=== PATIENT | male | born 1985 | race Caucasian/White ===

== ENCOUNTER 2017-11-20 13:08 | Emergency (ER) | payer MEDICAID, SELFPAY ==
--- NOTE | 2017-11-20 13:15 | DI.RAD_ITS ---
SYMPTOM/DIAGNOSIS: HIT WITH CHAINSAW, ? FX LEFT FOOT: Three views. No acute fracture or dislocation is seen. There is a laceration seen in the soft tissues of the medial foot adjacent to the head of the first metatarsal. No radiopaque foreign bodies are seen in the soft tissues. IMPRESSION: No acute fracture or dislocation.
[2017-11-20 13:16] VITALS: BP 147/96; PULSE 114; RESP 22; TEMP 36.6; O2SAT 97
--- NOTE | 2017-11-20 13:16 | ED.GENADUL_ITS ---
Discharge Plan Disposition Patient Disposition: HOME Condition: Stable Discharge Details Chief Complaint: Laceration Clinical Impression: Foot laceration Primary Care Provider: Keesha Olsen ED Provider: Debbie Schaeffer Home Meds and New Rx's Prescriptions: Continue oxycodone [OxyContin] 10 mg Tablet,Oral Only,Ext.Rel.12 Hr 10 mg PO Q12H RF: 0 Discharge Instructions Instructions: Laceration (ED) Additional Instructions: Keep wound clean dry and covered. Apply antibiotic ointment to the wound twice daily for the next 2 days. If you notice any signs of infection such as fever, increased pain redness or swelling, return immediately to the emergency department. Return to the emergency department in 7 days for suture removal. Referrals: Kimani Cuevas MD [ [facility] STAFF PHYSICIAN] - Discharge Data Discharge Date/Time-TO BE ENTERED AT DEPARTURE: 11/20/17 17:12 Discharge Physician: Debibe Schaeffer Medical Decision Making 32yo M with left foot laceration after hit directly with chain saw at home prior to arrival. Tetanus up-to-date. He has an approximate 3 cm irregular shaped laceration on dorsal distal foot just proximal to first MTP joint. There is no active bleeding. There is no obvious deformity. Normal left ankle exam. No gross motor/sensory deficits but he does have limited extension noted at left first toe, possibly due to pain. Full exam of wound limited due to patient discomfort and is requesting local anesthesia prior to further evaluation. He takes oxycodone 10 mg twice daily chronically for back pain but did not take a dose this morning. He is requesting pain medication. We will give a dose of oxycodone 10 mg p.o., and obtain a left foot x-ray. 1630 --3 vicryl and 10 nylon sutures placed at bedside. Wound is irregular and required debridement of irregular edges. Wound was extensively explored and there was no obvious tendon injury. Small portion of wound on medial aspect remains open. Discussed with patient that due to irregularity of the wound, wound edges approximated as best as possible and he is satisfied with the wound closure. Discussed that due to the irregular wound edges and irregular closure , there may be portions of the wound that may not be viable and may not survive. Overall the wound appears to be approximated well. Bacitracin and nonadherent dressing placed on wound. I do not think oral antibiotics are indicated at this time. He is instructed on the importance of keeping wound clean dry and covered. He is instructed to apply topical antibiotic ointment to wound twice to 3 times daily. He is instructed to return immediately to the emergency department any worsening or new concerning symptoms such as fever, increased pain, redness or swelling. Patient given orthopedics follow-up information for reevaluation if he has persistent difficulty with extension of the first great toe. He was neurovascularly intact after suture placement except for limitation of extension of first great toe which appeared to be due to pain - I suspect it may be due to the acute trauma to the area as I did not see an obvious tendon injury on exam. Pt placed on care managment list to help arrange follow up with orthopedics if indicated. He is instructed to return to the emergency department in 7 days for suture removal. HPI General Mode of arrival: wheelchair . Date/Time Provider Initiated Documentation: 11/20/17 13:15 . Limitations to Documentation: no limitations . Information obtained by: patient . HPI Narrative: Patient is a 32-year-old male presents with left foot injury after a chainsaw fell and hit him in the left foot just prior to arrival. States he was wearing a shoe without socks when hit directly on the top of his foot with a chainsaw. Patient denies pain in any other location of his lower extremity. Patient takes oxycodone chronically for back pain but states he has not taken any yet today. States his tetanus is up-to-date within the past 5- years. History: Chronic back pain Surgical history: Eye surgery Social history: Former tobacco smoker, denies alcohol or drugs Medications oxycodone 10 mg p.o. twice daily Allergies: None PCP: Dr. Amara Olsen Related Data Home Medications Medication Instructions Recorded Confirmed oxycodone [OxyContin] 10 mg PO Q12H 11/20/17 11/20/17 Allergies Allergy/AdvReac Type Severity Reaction Status Date / Time diphenhydramine HCl Allergy Severe Anaphylaxsi Unverified 08/21/17 22:15 [From Benadryl] s ibuprofen [From Advil] Allergy Unknown Unverified 08/21/17 22:15 Sulfa (Sulfonamide Allergy Unknown Unverified 08/21/17 22:15 Antibiotics) red 40 Allergy Hives Uncoded 08/21/17 22:15 Review of Systems Review of Systems All systems reviewed & are unremarkable except as noted in HPI and below PFSH Social History Smoking/Tobacco Use Status: Current every day Exam Const General: cooperative and healthy appearing Orientation: alert, awake and oriented x3 HENMT Head: normal to inspection Ears: hearing grossly normal bilaterally and external ears normal General nose exam: external nose normal Face and sinus: normal facial exam Eyes General: appearance normal, both eyes and all related structures Eyelids: eyelids normal Neck Neck: normal visual inspection Lymphatic: no lymphadenopathy noted Resp Effort & Inspection: normal respiratory effort and able to speak in complete sentences Cardio Rate: regular rate Skin General skin exam: no rashes or lesions noted Neuro General: alert, awake and oriented x3 Cognition: normal cognition Speech: speech normal Motor: muscle tone normal throughout and other (Able to wiggle all toes on left foot. Able to flex all toes and extend left second through fifth toes. Limited extension of left first toe, possibly due to pain.) Sensory Exam: no sensory deficits noted Extrem Left lower extremity: knee (No tenderness to palpation.), ankle (No tenderness palpation of left lateral or medial malleolus.) and foot (3 cm irregular laceration noted to left dorsal distal foot overlying first metatarsal. No active bleeding. No obvious foreign body noted. No erythema, edema, ecchymosis , deformity or red streaking.) Psych Appearance: grossly normal Mental Status: mental status grossly normal Speech and Movement: speech and movement normal Affect: normal affect Thought Process: normal Procedures Laceration Laceration 1: Site: lower extremity Side (If applicable): left Size (cm): 3.5 Description: irregular Local Anesthetic: Lidocaine 1% Pre-repair: wound explored, irrigated extensively, deep structures intact and wound margins revised Skin layer closed with: nylon and vicryl Technique: simple, interrupted (3 Vicryl sutures placed subcutaneously, 10 nylon sutures placed) Technique: simple, interrupted
[2017-11-20] MEDS: oxyCODONE 10 MG TAB PO (13:28)
[2017-11-20] MEDS: Lidocaine/Epinephri/Tetracaine Topical Gel 3 ML (14:41)
[2017-11-20] MEDS: LORazepam 2 MG/ML VIAL (14:41)
--- NOTE | 2017-11-20 15:09 | DI.VRAD_ITS ---
EXAM: XR Left Foot Complete, 3 or more Views EXAM DATE/TIME: 11/20/2017 1:16 PM CLINICAL HISTORY: 32 years old, male; Injury or trauma; Injury history: S/P hit l foot with chainsaw; Initial encounter; Laceration; Left; Foreign body involvement not specified; Patient HX: S/P hit in l foot with chainsaw TECHNIQUE: XR Left foot 3 or more views. COMPARISON: CR LEFT FOOT COMPLETE 07/12/2015 11:21 AM FINDINGS: Bones/joints: Normal. No acute fracture. No dislocation. Soft tissues: Normal. IMPRESSION: No acute findings. Dictated and Authenticated by: Cindy Martin MD. Ordering:CALLI MOYA MD
== END 2017-11-20 17:12 | disposition home or self-care (01) ==
PROVIDERS: Emergency Provider Physician Assistant; PCP Physician Assistant Medical
DX: S91.312A Laceration without foreign body, left foot, initial encounter (principal); W29.3XXA Contact with powered garden and outdoor hand tools and machinery, initial encounter
CPT/HCPCS: 12002; 96374; 73630; J2060

== ENCOUNTER 2017-11-29 11:40 | PSDC | payer MEDICAID, SELFPAY ==
[2017-11-29] VITALS (7 sets, daily range): BP systolic 94–123; BP diastolic 63–81; PULSE 85–96; RESP 10–18; TEMP 35.6–36.5; O2SAT 94–97
[2017-11-29] MEDS: Lactated Ringers 1,000 ML 80 ML IV ×2 (12:07→15:10)
--- NOTE | 2017-11-29 13:57 | W.PM.DSUDISC ---
Discharge Plan Disposition Patient Disposition: HOME Condition: Good Discharge Details Reason For Visit: (L) EHL TENDON LACERATION Attending Provider: Rip Velasquez Primary Care Provider: Keesha Olsen Home Meds and New Rx's Prescriptions: New acetaminophen 500 mg capsule 1,000 mg PO Q8H PRN (Reason: pain) Qty: 90 RF: 0 oxycodone 5 mg tablet 5 mg PO Q6H PRN PRNQty: 10 RF: 0 Continue oxycodone [OxyContin] 10 mg Tablet,Oral Only,Ext.Rel.12 Hr 10 mg PO Q12H RF: 0 Discharge Instructions Additional Instructions: Activity: You should keep the foot elevated as much as possible for the first few days. You may place weight on the leg but use the crutches for support. Whenever you are mobilizing you should wear the post-op shoe. Dressing/Cast: Your dressing should be kept in place for at least 4 days. After this you may remove the dressing and cover with a light gauze wrap. You may get the wound wet at that time. Keep it clean. Medications: - You should take Tylenol for baseline pain control. - You have Oxycodone for breakthrough pain. - You may apply ice over the foot Follow-up: 10 days Equipment/Supplies: Partial Weight Bearing Crutches Activity:: Elevate Remove Dressings/Wound Care:: 72 hours Shower/Bathe:: 72 hours Activity:: Ambulate with post-op shoe Equipment/Supplies:: No Equipment Needed Diet:: Normal Diet Discharge Orders Discharge Orders: Discharge Order (Routine); Ordered 11/29/17 Ordered By: Rip Velasquez DS: Diagnosis Discharge Diagnosis (1) Laceration of left foot with tendon involvement: Status: Acute
[2017-11-29] MEDS: oxyCODONE 5 MG TAB PO (16:47)
--- NOTE | 2017-11-30 09:05 | ROE_ITS ---
Date of Surgery: November 29, 2017 Preoperative Diagnosis: Left foot wound with tendon and bone involvement Postoperative Diagnosis: Left foot wound with tendon and bone involvement Surgery: Left foot laceration, 7 cm, irrigation and debridement of bone, muscle, and soft tissues with EHL ten don repair. Surgeon: Rip Velasquez M.D. Emery Grinder: Abena Crawley PA-C Findings: There was a jagged laceration over the medial left foot. This did involve a small area of the first metatarsal. The neurovascular bundle was completely transected and ripped with no approximable ends. The EHL tendon was also transected. A proximal incision was used to find it and a tendon repair wa s performed. Anesthesia: General Estimated Blood Loss: 20 cc Complications: None Disposition: The patient was awakened from anesthesia and taken to the PACU in a stable condition. 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 He states that his trigger finger slipped and he a ctivated the chainsaw while it was next to his foot. He suffered a laceration to the left foot. He was seen in the Emergency Department. Irrigation was performed and the foot was closed loosely. I s aw him in clinic where he demonstrated decreased sensation over the medial aspect of the foot and the toe as well as no active extension. Given the laceration and the involvement of deeper structures, I did offer irrigation and debridement with tendon repair. I discussed the risks of the procedure to include bleeding, infection, pain, stiffness, persistent numbness and tingling, weakness, rerupture, need for repeat procedures. Procedure Description: Jesus Manuel was greeted in the preoperative holding area. His identity was confirmed. The correct site was identified and marked. The consent was reviewed with the patient and signed. History and physical was updated. He was taken back to the operating room and placed in a supine position. All bony prominences were w ell-padded. The previous dressing was removed from the left foot. Sutures were removed from the lef t foot prior to proceeding with the case. The left foot was prepped with Betadine and draped in a st andard fashion. Prophylactic antibiotics in the form of cefazolin 3 gm were given. A time-out was p erformed for safe surgery. The previous laceration was then opened up with blunt dissection. There was no active bleeding from this area. The borders of the skin had somewhat of a godwin appearance and these were excised sharply back to healthy-appearing skin. There was definitely damaged skin seen emanating from this laceratio n site, but it still appeared viable. The deeper structures were difficult to appreciate. It was qu ite mangled. Thorough irrigation was performed of the wound with 1 liter of normal saline. Blunt an d sharp dissection were used to help identify more normal anatomy. There was notable destruction on the medial aspect of the first metatarsal. Most of the soft tissue was excised it appears from the c hainsaw itself with no reapproximable tissues. A stump proximally of the vein, artery, and nerve wer e seen, but the nerve had discoloration to it and the distal ends were hard to appreciate. Dissectio n was carried distally in the medial aspect of the foot, but there was no reapproximable ends of luis ry or nerve to be seen. There was also a small gouge of the first metatarsal. There was no true fra cture, but a 1 cm x 1 cm, a millimeter or two thick, wafer removed from the medial aspect of the firs t metatarsal. This was thoroughly irrigated. Rongeur and scissors were used to debride the tissues in this area. We then turned our attention to the EHL tendon which was obviously absent. The EHB tendon did appear to be present medially. The EHL tendon distally was able to be found. This distal stump was quite tattered. The end was sharply excised to return to some more normal-appearing tissues. This was hel d in place with an 18-gauge needle. We tried to find the EHL tendon proximally through the initial w ound. However, we were unable to appreciate this tendon and therefore made a more proximal incision. The tendon was identified and then shuttled back through the foot into the wound base. The incisio n also had to be extended proximally a slight amount in order to fully repair the tendon. The tendon was again held in place with an 18 gauge needle so there could be minimal tension on the tendon itse lf. Using a 2-0 FiberWire I performed a tendon repair using a cruciate-type pattern. This very nice ly reapproximated the tendon. I then backed this up with a crossing suture with 5-0 nylon as well as a 5-0 epitendinous suture. The toe was tested and it was safe down to about 20 degrees of plantar f lexion, and that toe was held in a neutral position of about 20 degrees of dorsiflexion. The wound w as thoroughly irrigated. The medial soft tissues, which were thoroughly disrupted, were attempted to be reapproximated to cover the bone which was cut by the chainsaw. Two 2-0 Vicryl sutures were able to slightly reapproximate this medial tissue of the toe. The skin was then closed with 3-0 nylon. The wound bed and the area was injected with 0.25% bupivacaine. The wound was dressed with Xeroform, 4x4s, Webril, and he was placed into a posterior slab splint, extending out to the toes, holding the great toe in a slight amount of dorsiflexion. At the end of the case all counts were correct.
== END 2017-11-29 17:33 | disposition home or self-care (01) ==
PROVIDERS: PCP Physician Assistant Medical; Visit Provider Student in an Organized Health Care Education/Training Program
PROC: (CPT 11044; principal; 2017-11-29 15:00)
DX: S91.312A Laceration without foreign body, left foot, initial encounter (principal); S96.122A Laceration of muscle and tendon of long extensor muscle of toe at ankle and foot level, left foot, initial encounter; S94.92XA Injury of unspecified nerve at ankle and foot level, left leg, initial encounter; W31.89XA Contact with other specified machinery, initial encounter
CPT/HCPCS: 11044; 12042; 28208; J0131; J0690; J1100; J1885; J2250; J2405

== ENCOUNTER 2018-03-16 00:49 | Emergency (ER) | payer MEDICAID, SELFPAY ==
[2018-03-16 00:54] VITALS: BP 139/89; PULSE 96; RESP 18; TEMP 36.6; O2SAT 99
--- NOTE | 2018-03-16 01:15 | W.ED.GENAD ---
Discharge Plan Disposition Patient Disposition: HOME Condition: Good Discharge Details Chief Complaint: Orthopedic Clinical Impression: Injury of knee, right Primary Care Provider: Keesha Olsen ED Provider: Sky Zimmerman Home Meds and New Rx's Prescriptions: New oxycodone 5 mg capsule 5 mg PO Q6H PRN (Reason: pain) Qty: 10 RF: 0 Discharge Instructions Instructions: Crutch Instructions (ED), Knee Immobilizer (ED) Additional Instructions: X-rays are negative. Given your exam findings we need to rule out patella tendon rupture. You must wear the knee immobilizer at all times. You must be nonweightbearing and use crutches. You will need follow-up promptly with orthopedics. You should use ice to help with pain and swelling. Keep your leg elevated. You may use oxycodone if necessary for pain. You should use Tylenol as well. Return to emergency department for increasing pain/swelling in the leg, numbness, weakness. Stand Alone Forms: Work Release Referrals: Rip Velasquez MD [ [facility] STAFF PHYSICIAN] - Medical Decision Making Patient here complaining of right knee injury. He is unable to bear weight. I cannot actively or passively range his knee because of pain. He is unable to lift his heel off the bed at all. His patella clinically appears to be in place. His patella tendon appears to be intact but given the inability to lift his leg at all of the bed I have to assume either a quadricep tendon rupture or a patella tendon rupture. He complains of pain infra patella. He is neurovascularly intact distally. He has allergies to nonsteroidals. He drove himself here somehow. I have told him that he can have narcotic for pain relief if he gets a ride home which he states he will be able to do. He is sent for x-ray of the right knee. He will be placed in a knee immobilizer and made nonweightbearing status with prompt follow-up with orthopedics. Patient reports to me that he had been on oxycodone in the past. He has weaned himself off it over the last 3 months. He is unable to take nonsteroidals because of allergies. I did review him in the [place] prescription monitoring system. Indeed his last prescription filled for oxycodone was in November. I will give him a prescription for 10 oxycodone to use over the next couple days until he can get in to see orthopedics. State information sheet was given. Informed consent was signed. X-ray is negative. Patella appears to be in place and not fractured. He is placed in a knee immobilizer and remained neurovascularly intact. He is given crutches and is made nonweightbearing. He is put on orthopedic referral list for prompt follow-up. HPI General Mode of arrival: wheelchair. Date/Time Provider Initiated Documentation: 03/16/18 01:15. Limitations to Documentation: no limitations. Information obtained by: patient. HPI Narrative: Patient presents to ED with right knee pain. Patient reports that he was going down stairs at work when he felt a pop in his right knee. His leg twisted outward and he was unable to bear weight. He did not fall as he was hanging onto the railing. He denies any other injury. He managed to get himself here for evaluation. He was brought in by wheelchair. He needed to be helped into the stretcher. Related Data Home Medications Medication Instructions Recorded Confirmed oxycodone 5 mg PO Q6H PRN #10 cap 03/16/18 Previous Rx's Medication Instructions Recorded oxycodone 5 mg PO Q6H PRN #10 cap 03/16/18 Allergies Allergy/AdvReac Type Severity Reaction Status Date / Time diphenhydramine HCl Allergy Severe Anaphylaxsi Verified 03/16/18 00:58 [From Benadryl] s ibuprofen [From Advil] Allergy Unknown Verified 03/16/18 00:58 Sulfa (Sulfonamide Allergy Unknown Verified 03/16/18 00:58 Antibiotics) cefuroxime [From Ceftin] Allergy Unverified 03/16/18 00:58 red 40 Allergy Hives Uncoded 03/16/18 00:58 General Stated Complaint: Orthopedic KRIS: 3 Review of Systems Constitutional Denies weakness Cardiovascular Denies chest pain, Denies syncope and Denies dyspnea Respiratory Denies dyspnea Musculoskeletal Reports abnormal gait, Reports arthralgias, Reports limited range of motion, Denies numbness and Denies tingling Neurologic Reports abnormal gait, Denies syncope, Denies focal weakness, Denies numbness, Denies tingling and Denies weakness PFSH Surgical History Laceration of left foot with tendon involvement (Chronic) Social History Smoking/Tobacco Use Status: Former Tobacco Use Exam Const General: cooperative and uncomfortable Nutritional Appearance: obese Orientation: alert and oriented x3 Skin General skin exam: no rashes or lesions noted Neuro General: alert, oriented x3, no focal motor deficits and CN's II-XI intact bilaterally Sensory Exam: no sensory deficits noted Extrem General: normal exam except as noted Right lower extremity: knee Details: tenderness Location: of the infrapatellar area, abnormal ROM (unable to range at all due to pain) Details: unable to extend lower leg actively and other (patella appears in place, tendon/quad muscle feel intact) and foot Details: vascular exam Details: dorsalis pedis pulse present and posterior tibial pulse present Course Vital Signs Temperature 97.8 F 03/16/18 00:54 Pulse 96 H 03/16/18 00:54 Respiratory Rate 18 03/16/18 00:54 Blood Pressure 139/89 03/16/18 00:54 Pulse Oximetry 99 03/16/18 00:54 Temperature 97.8 F 03/16/18 00:54 Temperature Source Temporal Artery Scan 03/16/18 00:54 Pulse 96 H 03/16/18 00:54 Respiratory Rate 18 03/16/18 00:54 Respiratory Effort Non-Labored 03/16/18 00:54 Blood Pressure 139/89 03/16/18 00:54 Blood Pressure Position Sitting 03/16/18 00:54 Pulse Oximetry 99 03/16/18 00:54 Oxygen Delivery Method Room Air 03/16/18 00:54 Oxygen Flow Rate 0 03/16/18 00:54 Pain Level 10 03/16/18 00:58
--- NOTE | 2018-03-16 01:28 | DI.RAD_ITS ---
SYMPTOM/DIAGNOSIS: TRAUMA RIGHT KNEE: Comparison is made with 19 Jun 2014. The joint spaces are well maintained. No fracture or joint effusion is seen. IMPRESSION: Negative right knee
--- NOTE | 2018-03-16 02:17 | DI.VRAD_ITS ---
EXAM: XR Left Knee, 4 or more Views EXAM DATE/TIME: 03/16/2018 1:30 AM CLINICAL HISTORY: 33 years old, male; Injury or trauma; Injury history: [place] pop walking down the stairs; Initial encounter; Sprain or strain; Patella or knee; Right; Injury date: 03/15/2018 TECHNIQUE: XR Left knee 4 or more views. COMPARISON: No relevant prior studies available. FINDINGS: Bones/joints: Typical for age. No evidence of acute fracture. Soft tissues: Unremarkable. IMPRESSION: No acute findings. Dictated and Authenticated by: Alexandru Faulkner MD. Ordering:KAROL Swanson MD
== END 2018-03-16 02:38 | disposition home or self-care (01) ==
PROVIDERS: Emergency Provider Emergency Medicine; PCP Physician Assistant Medical
DX: M25.561 Pain in right knee (principal)
CPT/HCPCS: 29505; 96372; 99284; 73564; E0114; L1830

== ENCOUNTER 2018-03-31 20:33 | Outpatient (CLI) | payer MEDICAID, SELFPAY ==
--- NOTE | 2018-03-31 20:49 | NUR.NOTE ---
Nursing Note: Pt brought in previous knee immobilizer from visit 03/16/18, where he was seen by Dr. Zimmerman. Pt states immobilizer failed (straps came apart from side bars). Disposed of here in ED. Production Editor made aware, states to have account made for dispensing new durable medical equipment. Pt has f/u with orthopedics scheduled for 04/05/18. Pt arrives partial weight bearing on crutches.
== END 2018-03-31 20:53 ==
PROVIDERS: PCP Physician Assistant Medical; Visit Provider Emergency Medicine
DX: R69 Illness, unspecified (principal)
CPT/HCPCS: L1830

== ENCOUNTER 2019-02-14 14:31 | Emergency (ER) | payer MEDICAID, SELFPAY ==
[2019-02-14 14:34] VITALS: BP 159/89; PULSE 93; RESP 19; TEMP 35.9; O2SAT 95
--- NOTE | 2019-02-14 15:02 | W.ED.GENAD ---
Discharge Plan Disposition Patient Disposition: HOME Discharge Details Chief Complaint: Orthopedic Clinical Impression: Distal radius fracture, right Primary Care Provider: Keesha Olsen ED Provider: Nicholas Underwood Home Meds and New Rx's Prescriptions: No Action oxycodone 5 mg capsule 10 mg PO Q6H PRN (Reason: pain) RF: 0 Discharge Instructions Instructions: Wrist Fracture in Adults (ED) Additional Instructions: Please use wrist splint. No use of right hand until cleared by orthopedics. Call tomorrow to schedule follow-up with orthopedics. Please contact your primary care physician to arrange follow-up. Return to the ER for any worsening or new concerning symptoms. Stand Alone Forms: Work Release Referrals: Keesha Olsen [Primary Care Provider] - Rip Velasquez MD [ [facility] STAFF PHYSICIAN] - Discharge Data Discharge Date/Time-TO BE ENTERED AT DEPARTURE: 02/14/19 16:50 Medical Decision Making <CATE Graves - Last Filed: 02/17/19 23:27> Is a 33-year-old patient presenting for complaints of hand injury after punching a cement wall 2 days ago. Patient complaining of right hand, wrist and forearm pain since injury occurred. Patient does have a history of boxer's fracture and is concerned with similar. Patient has no open wounds. Patient is complaining of mild dorsal hand numbness however has sensation intact distally. On exam patient has notable forearm, wrist and hand pain with palpation. Specifically has no obvious deformities. Again sensation intact to sharp and dull distally but reporting decreased sensation over the proximal hand wrist. X-rays ordered. Patient offered Motrin and Tylenol at this time but declines Signed out pending x-ray results <Nicholas Underwood MD - Last Filed: 02/14/19 22:39> Care signed out by CATE Estrada with plan to follow-up on x-ray imaging. X-ray was interpreted by radiology: forearm Distal radial fracture with no definite extension to the articular surface. No displacement. No acute findings noted on the wrist or hand x-ray. [place] wrist splint placed. Patient continues to note paresthesias dorsal hand -suspect secondary to radial nerve irritation. Patient was instructed to follow-up with orthopedics. Usual and customary discharge instructions were provided. HPI <CATE Graves - Last Filed: 02/17/19 23:27> General Date/Time Provider Initiated Documentation: 02/14/19 14:44. HPI Narrative: This is a 33-year-old gentleman who reports 2 days ago he lost his temper and punched a cement wall. Patient complaining of pain in his right hand and wrist since that time. Patient also complaining of mild forearm pain. Patient complaining of a numbness of the dorsal aspect of his right hand. Patient denies open wounds. History of boxer's fracture in years past. Patient persistent discomfort with range of motion. No other sites of pain or concerns reported. Related Data Home Medications Medication Instructions Recorded Confirmed oxycodone 10 mg PO Q6H PRN 02/14/19 02/14/19 Allergies Allergy/AdvReac Type Severity Reaction Status Date / Time diphenhydramine HCl Allergy Severe Anaphylaxsi Verified 02/14/19 14:39 [From Benadryl] s ibuprofen [From Advil] Allergy Unknown Verified 02/14/19 14:39 Sulfa (Sulfonamide Allergy Unknown Verified 02/14/19 14:39 Antibiotics) cefuroxime [From Ceftin] Allergy Unverified 02/14/19 14:39 red 40 Allergy Hives Uncoded 02/14/19 14:39 General Stated Complaint: Orthopedic KRIS: 4 Review of Systems <CATE Graves - Last Filed: 02/17/19 23:27> All systems reviewed & are unremarkable except as noted in HPI and below Musculoskeletal Musculoskeletal: Reports numbness and Denies tingling Integumentary/Breasts Skin/Breast: Denies wounds Neurologic Neurologic: Reports numbness and Denies tingling PFS <CATE Graves - Last Filed: 02/17/19 23:27> Surgical History (Updated 03/16/18 @ 01:28 by Sky Zimmerman MD) Laceration of left foot with tendon involvement (Chronic) Status post extensor tendon repair left great toe DOS: 11/29/17 Social History Smoking/Tobacco Use Status: Former Tobacco Use Drug use: Never Substance use type: does not use Do you feel safe at home: Yes Do you feel safe in your relationship?: Yes Exam <CATE Graves - Last Filed: 02/17/19 23:27> Narrative Exam Narrative: CONST: Healthy appearing patient, in no acute distress. Alert and oriented. MUSCULOSKELETAL: No focal elbow pain with palpation. Moderate right forearm pain with palpation worse distally. Wrist pain with palpation both radial and ulnar aspects. Dorsal hand pain with palpation along the first metacarpal, second metacarpal. No open wounds. No obvious deformity. Pulses intact. Decreased sensation to sharp and dull overlying the dorsal hand at the wrist. No loss of sensation through all the digits distally. All digits are intact to sharp and dull. 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 SKIN: Normal. Dry. No rashes. NEURO: Alert and awake. Speech clear. PSYCH: Normal affect. Cooperative. Course <CATE Graves - Last Filed: 02/17/19 23:27> Vital Signs Vital signs: Vital Signs Temperature 35.9 C L 02/14/19 14:34 Pulse 93 H 02/14/19 14:34 Respiratory Rate 19 02/14/19 14:34 Blood Pressure 159/89 H 02/14/19 14:34 Pulse Oximetry 95 02/14/19 14:34 Temperature 35.9 C L 02/14/19 14:34 Temperature Source Skin 02/14/19 14:34 Pulse 93 H 02/14/19 14:34 Respiratory Rate 19 02/14/19 14:34 Respiratory Effort Non-Labored 02/14/19 14:36 Blood Pressure 159/89 H 02/14/19 14:34 Blood Pressure Position Sitting 02/14/19 14:34 Pulse Oximetry 95 02/14/19 14:34 Oxygen Delivery Method Room Air 02/14/19 14:34 Oxygen Flow Rate 0 02/14/19 14:34 Pain Level 6 02/14/19 14:36 Sign Out <CATE Graves - Last Filed: 02/17/19 23:27> Sign Out Data: Sign Out Comment: Signout pending x-ray results, appropriate splinting Last updated by Zabrina Amor PA at 02/14/19 16:10
--- NOTE | 2019-02-14 15:09 | DI.RAD_ITS ---
EXAM: XR FOREARM RT CLINICAL HISTORY: pain, injury TECHNIQUE: COMPARISON: XR HAND RT COMPLETE from 02/14/2019 XR WRIST RT COMPLETE from 02/14/2019 XR WRIST RT COMPLETE from 02/14/2019 FINDINGS: Two views of the forearm, three views of the wrist, and three views of the hand were obtained. Minim al cortical deformity of the distal radius noted, probably epiphyseal remnant. Nondisplaced fracture not excluded. No other bony abnormality seen. IMPRESSION:
--- NOTE | 2019-02-14 16:26 | DI.VRAD_ITS ---
PROCEDURE INFORMATION: Exam: XR Right Forearm Exam date and time: 02/14/2019 3:16 PM Age: 33 years old Clinical indication: Pain; Other: Punching injury TECHNIQUE: Imaging protocol: XR Right forearm. Views: 2 views. COMPARISON: No relevant prior studies available. FINDINGS: Bones/joints: Distal radial fracture. No definite extension to the articular surface. No displacement. Soft tissues: Normal. IMPRESSION: Distal radial fracture. No definite extension to the articular surface. No displacement. Dictated and Authenticated by: Minh Lopez MD. Ordering:DANK Gerber MD
--- NOTE | 2019-02-14 16:27 | DI.VRAD_ITS ---
PROCEDURE INFORMATION: Exam: XR Right Wrist Exam date and time: 02/14/2019 3:17 PM Age: 33 years old Clinical indication: Pain; Wrist; Right; Patient HX: Punching injury 2 days ago. TECHNIQUE: Imaging protocol: XR Right wrist. Views: 3 or more views. COMPARISON: No relevant prior studies available. FINDINGS: Bones/joints: Normal. Soft tissues: Normal. IMPRESSION: No acute findings. Dictated and Authenticated by: Minh Lopez MD. Ordering:DANK Gerber MD
--- NOTE | 2019-02-14 16:27 | DI.VRAD_ITS ---
PROCEDURE INFORMATION: Exam: XR Right Hand Exam date and time: 02/14/2019 3:21 PM Age: 33 years old Clinical indication: Pain; Hand; Right; Patient HX: Punching injury 2 days ago TECHNIQUE: Imaging protocol: XR Right hand. Views: 3 or more views. COMPARISON: No relevant prior studies available. FINDINGS: Bones/joints: Normal. Soft tissues: Soft tissue edema. IMPRESSION: Soft tissue edema. No fracture is noted Dictated and Authenticated by: Minh Lopez MD. Ordering:DANK Gerber MD
== END 2019-02-14 16:50 | disposition home or self-care (01) ==
PROVIDERS: Emergency Provider Student in an Organized Health Care Education/Training Program; PCP Physician Assistant Medical
DX: S52.501A Unspecified fracture of the lower end of right radius, initial encounter for closed fracture (principal); W22.09XA Striking against other stationary object, initial encounter
CPT/HCPCS: 29125; 99284; 73090; 73110; 73130; L3908

== ENCOUNTER 2019-02-21 21:35 | Emergency (ER) | payer MEDICAID, SELFPAY ==
[2019-02-21 21:49] VITALS: BP 136/86; PULSE 76; RESP 16; TEMP 36.7; O2SAT 96
--- NOTE | 2019-02-21 22:00 | W.ED.GENAD ---
Discharge Plan Disposition Patient Disposition: HOME Condition: Good Discharge Details Chief Complaint: Orthopedic Clinical Impression: Acute pain of right wrist Primary Care Provider: Keesha Olsen ED Provider: Allan Cortez Home Meds and New Rx's Prescriptions: New naproxen 500 mg tablet 500 mg PO BID Qty: 20 RF: 0 No Action oxycodone 5 mg capsule 10 mg PO Q6H PRN (Reason: pain) RF: 0 Discharge Instructions Instructions: Wrist Injury (ED) Additional Instructions: Please keep your wrist splint on at all times. I would recommend taking Aleve over Tylenol to help with the pain. Use ice as needed. Follow-up closely with your food safety specialist. If you notice any worsening of your symptoms, or any new symptoms such as vomiting, diarrhea, fever, chills, shortness of breath, chest pain, numbness, weakness, or fainting , please return immediately to the emergency department for reevaluation. Please follow up with your primary care provider as soon as possible for reassessment and reevaluation. As always, it was a pleasure participating in your medical care today. Referrals: Keesha Olsen [Primary Care Provider] - Discharge Data Discharge Date/Time-TO BE ENTERED AT DEPARTURE: 02/21/19 22:05 Medical Decision Making 33-year-old male with a recent diagnosis of a very minimal right distal radius fracture, who had initial interpretation by virtual radiology as a fracture but reinterpretation by our radiologist as an epiphyseal remnant. Patient presents today for evaluation of transient spasm of his hand. Patient states that earlier today he noticed a small amount of swelling over the area of tenderness on his wrist, followed by what he described as involuntary movements of all of his fingers which resolved on its own. He has been using the splint as directed. He has been taking his [place]'s and Tylenols for pain control. He does admit to continued tingling on his right thumb which was present on prior assessment. He has orthopedic follow-up scheduled. He has no other complaints at this time. Exam demonstrates no signs of significant displacement or deformity. Appropriate level of tenderness with the location of his pain. No other significant abnormalities on exam. He does have decreased two-point discrimination on the distal tip of his thumb on the right hand, however the remainder of the thumb is neurovascularly intact with normal two-point discrimination. Patient does have orthopedic follow-up in place. At this time I feel that the patient symptoms are consistent with notable sprain of the wrist and recommend continued use of the wrist splint that was prescribed here in his last visit. Recommend starting naproxen which she has tolerated before help with pain control. I discussed with him the importance of reevaluation if he demonstrates a change in his sensation, worsening pain. Discussed red flags which to return. I have extensively reviewed the treatment plan and discharge instructions with the patient and their family. I have addressed all patient concerns at this time. The patient and family was made aware of what symptoms to monitor for that would warrant a return to the emergency department. Discussed the plan with the patient and family, they demonstrate verbal understanding and agreement with our assessment and plan at this time. FINDINGS: Two views of the forearm, three views of the wrist, and three views of the hand were obtained. Minimal cortical deformity of the distal radius noted, probably epiphyseal remnant. Nondisplaced fracture not excluded. No other bony abnormality seen. HPI General Date/Time Provider Initiated Documentation: 02/21/19 21:41. HPI Narrative: 33-year-old male with a recent diagnosis of a very minimal right distal radius fracture, who had initial interpretation by virtual radiology as a fracture but reinterpretation by our radiologist as an epiphyseal remnant. Patient presents today for evaluation of transient spasm of his hand. Patient states that earlier today he noticed a small amount of swelling over the area of tenderness on his wrist, followed by what he described as involuntary movements of all of his fingers which resolved on its own. He has been using the splint as directed. He has been taking his [place]'s and Tylenols for pain control. He does admit to continued tingling on his right thumb which was present on prior assessment. He has orthopedic follow-up scheduled. He has no other complaints at this time. FINDINGS: Two views of the forearm, three views of the wrist, and three views of the hand were obtained. Minimal cortical deformity of the distal radius noted, probably epiphyseal remnant. Nondisplaced fracture not excluded. No other bony abnormality seen. Related Data Home Medications Medication Instructions Recorded Confirmed oxycodone 10 mg PO Q6H PRN 02/14/19 02/14/19 naproxen 500 mg PO BID #20 tab 02/21/19 Previous Rx's Medication Instructions Recorded naproxen 500 mg PO BID #20 tab 02/21/19 Allergies Allergy/AdvReac Type Severity Reaction Status Date / Time diphenhydramine HCl Allergy Severe Anaphylaxsi Verified 02/14/19 14:39 [From Benadryl] s ibuprofen [From Advil] Allergy Unknown Verified 02/14/19 14:39 Sulfa (Sulfonamide Allergy Unknown Verified 02/14/19 14:39 Antibiotics) cefuroxime [From Ceftin] Allergy Unverified 02/14/19 14:39 red 40 Allergy Hives Uncoded 02/14/19 14:39 General Stated Complaint: Orthopedic KRIS: 4 Review of Systems All systems reviewed & are unremarkable except as noted in HPI and below [facility] Surgical History (Updated 03/16/18 @ 01:28 by Sky Zimmerman MD) Laceration of left foot with tendon involvement (Chronic) Status post extensor tendon repair left great toe DOS: 11/29/17 Social History Smoking/Tobacco Use Status: Former Tobacco Use Drug use: Never Substance use type: does not use Do you feel safe at home: Yes Do you feel safe in your relationship?: Yes Exam Narrative Exam Narrative: 1.Const: Well-nourished, Well-developed, appearing stated age 2.Eyes: PERRL, no conjunctival injection, and symmetrical lids. 3.ENT: Atraumatic external nose and ears. Moist MM. Neck: Symmetric, trachea midline, No thyromegaly. 4.CVS: +S1/S2, No murmurs or gallops. Peripheral pulses 2+ and equal in all extremities. Brisk capillary refill in all extremities. 5.RESP: Unlabored respiratory effort. Clear to auscultation bilaterally. No wheezes rales or rhonchi 6.GI: Soft, Nontender/Nondistended, No hepatosplenomegaly. No guarding or rebound. 7.MSK: Normocephalic/Atraumatic, Extremities w/o deformity. No cyanosis or clubbing. Right hand: Symmetrically palpable radial and ulnar pulses. Capillary refill less than 2 seconds to all digits. Intact sensation to light touch of the radial, median and ulnar nerves demonstrated by testing in the dorsal web space of the thumb, the distal palmar aspect of the index finger, and the lateral surface of the fifth finger. 2 point discrimination intact to 5mm (up to 6mm can be normal in digits 3-5) of discrimination in all digits except for solely the distal tip of the right thumb. The distal tip shows a lack of two-point discrimination, however from the proximal nailbed and more proximally there is normal two-point discrimination throughout. Intact motor function of the radial, median and ulnar nerves demonstrated by strength of extension of the isolated distal joint of the index finger, hand strategy specialist, and spreading of the 2nd through 5th digits. Intact recurrent median nerve as demonstrated by ability to move thumb fully through opposition, abduction and flexion. Mild to moderate tenderness over the distal radius. Minimal tenderness over the snuffbox. 8.Skin: Warm, Dry. No rashes or lesions. 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 Sensation grossly intact, no focal neurologic deficits. 10.Psych: (AAO) x3. Appropriate mood and affect Course Vital Signs Vital signs: Vital Signs Temperature 36.7 C 02/21/19 21:49 Pulse 76 02/21/19 21:49 Respiratory Rate 16 02/21/19 21:49 Blood Pressure 136/86 02/21/19 21:49 Pulse Oximetry 96 02/21/19 21:49 Temperature 36.7 C 02/21/19 21:49 Temperature Source Skin 02/21/19 21:49 Pulse 76 02/21/19 21:49 Respiratory Rate 16 02/21/19 21:49 Respiratory Effort 02/21/19 21:49 Blood Pressure 136/86 02/21/19 21:49 Pulse Oximetry 96 02/21/19 21:49
[2019-02-21 22:05] VITALS: BP 136/86; PULSE 76; RESP 16; O2SAT 96
== END 2019-02-21 22:05 | disposition home or self-care (01) ==
PROVIDERS: Emergency Provider Student in an Organized Health Care Education/Training Program; PCP Physician Assistant Medical
DX: M25.531 Pain in right wrist (principal); R20.2 Paresthesia of skin; M62.838 Other muscle spasm
CPT/HCPCS: 99282

== ENCOUNTER 2019-03-27 07:04 | Outpatient (CLI) | payer MEDICAID, SELFPAY ==
[2019-03-27 07:55] LABS: Hemoglobin A1C 5.8 % (3.8-5.6)
[2019-03-27 08:51] LABS: ALT 44 U/L (16-63); AST 23 U/L (15-37); Albumin 3.9 g/dL (3.4-5.0); Alkaline Phosphatase 80 U/L (46-116); Anion Gap 10.2 mmol/L (3-11); BUN 12 mg/dL (7-18); Bilirubin, Total 0.6 mg/dL (0.2-1.0); CO2 29.8 mmol/L (21.0-32.0); CREATININE 1.01 mg/dL (0.70-1.30); Calcium 9.4 mg/dL (8.5-10.1); Calculated LDL 142 mg/dL (<100); Chloride 103 mmol/L (98-107); Cholesterol 209 mg/dL (<200); Glucose 96 mg/dL (74-106); HDL Cholesterol 51 mg/dL (40-60); Potassium 4.6 mmol/L (3.5-5.1); Sodium 143 mmol/L (136-145); Total Protein 7.5 g/dL (6.4-8.2); Triglyceride 80 mg/dL (<150)
== END 2019-03-27 07:24 ==
PROVIDERS: PCP Physician Assistant Medical; Visit Provider Physician Assistant Medical
DX: E78.5 Hyperlipidemia, unspecified (principal); R73.9 Hyperglycemia, unspecified
CPT/HCPCS: 36415; 80053; 80061; 83036

== ENCOUNTER 2019-04-06 19:41 | Emergency (ER) | payer MEDICAID, SELFPAY ==
[2019-04-06 19:43] VITALS: BP 136/86; PULSE 101; RESP 22; TEMP 36.4; O2SAT 100
--- NOTE | 2019-04-06 19:55 | W.ED.GENAD ---
Discharge Plan Disposition Patient Disposition: HOME Condition: Stable Discharge Details Chief Complaint: Orthopedic Clinical Impression: Sprain of right wrist Primary Care Provider: Keesha Olsen ED Provider: Khushbu Stauffer Home Meds and New Rx's Prescriptions: Continued Narcan 4 mg/actuation spray,non-aerosol 1 spray JALIL ONCE RF: 0 oxycodone 5 mg capsule 10 mg PO Q6H PRN (Reason: pain) RF: 0 albuterol sulfate [ProAir HFA] 90 mcg/actuation HFA aerosol inhaler 2 puff IH Q6H PRNRF: 0 naproxen 500 mg tablet 500 mg PO BID Qty: 20 RF: 0 Discharge Instructions Instructions: Wrist Sprain (ED) Additional Instructions: Follow up with primary care provider in 3-5 days. Return to ED sooner if any worsening or concerns. Increase oral fluids. Please take Tylenol or Ibuprofen with food every 4-6 hours as needed for pain and swelling. Rest ice compression elevation. Wear splint for comfort. 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 He states that during shifting he had an acute onset of severe pain to his wrist. He then noted some what he describes as tenting and swelling to his wrist. Does have a history of surgery to that same wrist. Denies any falls, no elbow pain. He is having difficulty making a fist and has increased pain with extension. Radial pulses intact, cap refill less than 2 seconds hand is pink warm dry. TECHNIQUE: Imaging protocol: XR Right wrist. Views: 3 or more views. COMPARISON: CR XR WRIST RT COMPLETE 02/14/2019 3:09 PM FINDINGS: Bones/joints: Normal. Soft tissues: Normal. IMPRESSION: No acute findings. Thank you for allowing us to participate in the care of your patient. Dictated and Authenticated by: Harsha Munoz DO 04/06/2019 8:32 PM Eastern Time ([place] & [place]) Patient placed in a universal wrist splint instructed on rest ice compression elevation and taking Tylenol as needed for pain. Instructed to follow-up with PCP return if any worsening. HPI General Mode of arrival: ambulatory. Date/Time Provider Initiated Documentation: 04/06/19 19:54. Limitations to Documentation: no limitations. Information obtained by: patient. 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 He states that during shifting he had an acute onset of severe pain to his wrist. He then noted some what he describes as tenting and swelling to his wrist. Does have a history of surgery to that same wrist. Denies any falls, no elbow pain. He is having difficulty making a fist and has increased pain with extension. Radial pulses intact, cap refill less than 2 seconds hand is pink warm dry. Related Data Home Medications Medication Instructions Recorded Confirmed naproxen 500 mg PO BID #20 tab 02/21/19 albuterol sulfate 90 mcg/actuation 2 puff IH Q6H PRN 02/26/19 04/06/19 aerosol inhaler naloxone 4 mg/actuation nasal spray 1 spray JALIL ONCE each 02/26/19 04/06/19 oxycodone 5 mg capsule 10 mg PO Q6H PRN 02/26/19 04/06/19 Previous Rx's Medication Instructions Recorded naproxen 500 mg PO BID #20 tab 02/21/19 Allergies Allergy/AdvReac Type Severity Reaction Status Date / Time diphenhydramine HCl Allergy Severe Anaphylaxsi Verified 04/06/19 19:47 [From Benadryl] s guaifenesin [From Robitussin] Allergy Unknown Unverified 04/06/19 19:47 ibuprofen [From Advil] Allergy Unknown Verified 04/06/19 19:47 Sulfa (Sulfonamide Allergy Unknown Verified 04/06/19 19:47 Antibiotics) cefuroxime [From Ceftin] Allergy Unverified 04/06/19 19:47 red 40 Allergy Hives Uncoded 04/06/19 19:47 General Stated Complaint: Orthopedic KRIS: 4 Review of Systems Narrative: Constitutional: Negative for weight loss, alert and oriented, well groomed, normal body habitus, appears comfortable. HEENT: Denies trauma, headaches, blurry vision, nasal discharge, sore throat, trouble swallowing. Chest: Denies chest pain, palpitations, irregular rhythm, hypertension. Respiratory: Denies Shortness of breath, cough, hemoptysis. GI: Denies abdominal pain, nausea, vomiting, diarrhea, constipation. : Denies dysuria, hematuria, flank pain, rectal bleeding. Extremities: Here with right wrist pain Neuro: Denies dizziness, blurry vision, weakness, syncope, headache or facial numbness. Hematologic: Denies easy bruising, intolerance to heat or cold, hair loss. [facility] Surgical History Laceration of left foot with tendon involvement (Chronic) Status post extensor tendon repair left great toe DOS: 11/29/17 Social History Smoking/Tobacco Use Status: Former Tobacco Use Drug use: Never Substance use type: does not use Do you feel safe at home: Yes Do you feel safe in your relationship?: Yes Exam Narrative Exam Narrative: Constitutional: Allert and oriented x3. Appears stated age. Normal body habitus. Head: Normocephalic, no trauma. Eyes: Pupils PERRLA, Red reflex noted, EOM's intact. Eyelids symmetrical withour lesions, discharge, or swelling. ENT: Bilateral TM's WNL, External ear normal to inspection, no mastoid TTP, swelling, or erythema, Nasal turbinates WNL, no nasal discharge. Normal dentition, Posterior pharynx WNL, no exudate. Chest: RRR, Normal S1, S2, distal pulses intact. Resp: Lungs clear to auscultation bilaterally, no wheezes, rales, or rhonchi. Musculoskeletal: Normal gait, 5/5 strength to all four extremities. Is having right wrist pain, increased pain with flexion and extension. Pain is worse with flexion. Pain worse to the dorsum of his wrist. Skin: No suspicious rashes or lesions. Capillary refill ?2 sec. Neurologic: Cranial nerves II-XII intact. Alert and oriented x 3. DTR's intact. Hematologic/Lymphatic: No ecchymosis, no lymphadenopathy. Course Vital Signs Vital signs: Vital Signs Temperature 36.4 C L 04/06/19 19:43 Pulse 101 H 04/06/19 19:43 Respiratory Rate 22 04/06/19 19:43 Blood Pressure 136/86 04/06/19 19:43 Pulse Oximetry 100 04/06/19 19:43 Temperature 36.4 C L 04/06/19 19:43 Temperature Source Skin 04/06/19 19:43 Pulse 101 H 04/06/19 19:43 Respiratory Rate 22 04/06/19 19:43 Respiratory Effort Non-Labored 04/06/19 19:48 Blood Pressure 136/86 04/06/19 19:43 Blood Pressure Position Sitting 04/06/19 19:43 Pulse Oximetry 100 04/06/19 19:43 Oxygen Delivery Method Room Air 04/06/19 19:43 Oxygen Flow Rate 0 04/06/19 19:43 Pain Level 8 04/06/19 19:43
--- NOTE | 2019-04-06 20:09 | DI.RAD_ITS ---
EXAM: XR WRIST RT COMPLETE CLINICAL HISTORY: Pain TECHNIQUE: COMPARISON: XR WRIST RT COMPLETE from 02/14/2019 FINDINGS: Three views were obtained. There is no evidence of fracture or dislocation. IMPRESSION:
--- NOTE | 2019-04-06 20:32 | DI.VRAD_ITS ---
PROCEDURE INFORMATION: Exam: XR Right Wrist Exam date and time: 04/06/2019 8:04 PM Age: 34 years old Clinical indication: Wrist; Right; Patient HX: Pain, no recent trauma TECHNIQUE: Imaging protocol: XR Right wrist. Views: 3 or more views. COMPARISON: CR XR WRIST RT COMPLETE 02/14/2019 3:09 PM FINDINGS: Bones/joints: Normal. Soft tissues: Normal. IMPRESSION: No acute findings. Dictated and Authenticated by: Harsha Munoz MD. Ordering:TERESA Ríos MD
== END 2019-04-06 20:50 | disposition home or self-care (01) ==
PROVIDERS: Emergency Provider Registered Nurse Emergency; PCP Physician Assistant Medical
DX: S63.501A Unspecified sprain of right wrist, initial encounter (principal); X50.9XXA Other and unspecified overexertion or strenuous movements or postures, initial encounter
CPT/HCPCS: 29125; 99283; 73110; L3908

== ENCOUNTER 2019-07-15 20:20 | Emergency (ER) | payer MEDICAID, SELFPAY ==
--- NOTE | 2019-07-15 20:15 | DI.RAD_ITS ---
EXAM: XR CHEST 2V PA LATERAL CLINICAL HISTORY: shortness of breath TECHNIQUE: 2D digital imaging was performed. COMPARISON: CR CHEST 2 VIEWS PA,LAT from 05/27/2016 FINDINGS: The heart is not enlarged. The lungs are clear and well expanded. No pleural effusion seen. Mediastin al contours appear intact. IMPRESSION: Normal chest
--- NOTE | 2019-07-15 20:29 | ED.GENADUL_ITS ---
Discharge Plan Disposition Patient Disposition: HOME Condition: Stable Discharge Details Chief Complaint: RespSymp Clinical Impression: Wheezing Primary Care Provider: Keesha Olsen ED Provider: Corbin Birch Home Meds and New Rx's Prescriptions: New albuterol sulfate 90 mcg/actuation HFA aerosol inhaler 2 puff IH Q6H PRNQty: 8 RF: 0 Continued Narcan 4 mg/actuation spray,non-aerosol 1 spray JALIL ONCE RF: 0 oxycodone 5 mg capsule 10 mg PO Q6H PRN (Reason: pain) RF: 0 Discharge Instructions Additional Instructions: use the inhaler as needed for shortness of breath follow up with your primary care provider within 1 week especially if symptoms continue if you feel more ill, have worsening shortness of breath or chest pain/pressure return to the emergency department Medical Decision Making 34 yo male with hx of chronic back pain who is a former smoker of 11 years comes in with complaints of feeling intermittent sensation of not being able to catch his breath. Denies chest pain or pressure, no fevers, no cough, no travel or si ck contacts. NO leg swelling or calf pain, no pleuritic chest pain.He arrives speaking in full sentences in no distress laughing intermittently. He has apical wheezing bilaterally otherwise clear lungs without murmurs.Denies drug use, has no rashes on exam. He used his mother's inhaler and felt better. I suspect he has some reactive airway disease given his exam findings and smoking history, will treat with neb and reassess. HE has no chest pain or pressure, no jvd or peripheral edema so doubt acs or chf at this time. Wells low PERCnegative so doubt PE. Will obtain cxr to evaluate for possible pna but unlikely given no fevers or cough patient feels better after neb and lungs clear with no apical wheezing xray negative. Will d/c with albuterol and advised f/u with pcp and return precaution s given Differential Diagnosis Differential Diagnosis: allergies, asthma, pna Imaging Data Radiologic Study: Attestation: I personally reviewed and interpreted this imaging study as follows: Imaging: X-Ray Radiologist's impression: no acute findings HPI General Mode of arrival: ambulatory . Date/Time Provider Initiated Documentation: 07/15/19 20:20 . Limitations to Documentation: no limitations . Information obtained by: patient . History of Present Illness 34 year old M presents to the emergency department with the chief complaint of short of breath, described as mild, and it has been intermittent. No relieving factors improve symptom(s), No exacerbating factors reported . Patient did receive the following treatments prior to arrival, none Related Data Home Medications Medication Instructions Recorded Confirmed naloxone 4 mg/actuation nasal spray 1 spray JALIL ONCE each 02/26/19 07/15/19 oxycodone 5 mg capsule 10 mg PO Q6H PRN 02/26/19 07/15/19 albuterol sulfate 2 puff IH Q6H PRN #8 gm 07/15/19 Previous Rx's Medication Instructions Recorded albuterol sulfate 2 puff IH Q6H PRN #8 gm 07/15/19 Allergies Allergy/AdvReac Type Severity Reaction Status Date / Time diphenhydramine HCl Allergy Severe Anaphylaxsi Verified 04/06/19 19:47 [From Benadryl] s guaifenesin [From Robitussin] Allergy Unknown Unverified 04/06/19 19:47 ibuprofen [From Advil] Allergy Unknown Verified 04/06/19 19:47 Sulfa (Sulfonamide Allergy Unknown Verified 04/06/19 19:47 Antibiotics) cefuroxime [From Ceftin] Allergy Unverified 04/06/19 19:47 red 40 Allergy Hives Uncoded 04/06/19 19:47 General KRIS: 4 Review of Systems All systems reviewed & are unremarkable except as noted in HPI and below Constitutional Constitutional: Denies chills, Denies fever(s) and Denies weakness Cardiovascular Cardiovascular: Denies chest pain Respiratory Respiratory: Denies cough Gastrointestinal Gastrointestinal: Denies abdominal pain, Denies nausea and Denies vomiting Musculoskeletal Musculoskeletal: Denies joint swelling Neurologic Neurologic: Denies weakness Psychiatric Psychiatric: Denies depression [facility] Social History Smoking/Tobacco Use Status: Former Tobacco Use Drug use: Never Substance use type: does not use Do you feel safe at home: Yes Do you feel safe in your relationship?: Yes Exam Const General: no acute distress Orientation: alert HENMT Head: normal to inspection Ears: external ears normal General nose exam: external nose normal Mouth: moist mucous membranes Eyes General: appearance normal, both eyes and all related structures Neck Neck: normal visual inspection Resp Effort & Inspection: normal respiratory effort and able to speak in complete sentences Cardio Rate: regular rate Skin General skin exam: no rashes or lesions noted Neuro General: patient alert and patient oriented x3 Extrem General: normal to inspection Psych Mental Status: mental status grossly normal
[2019-07-15 20:30] VITALS: BP 137/69; PULSE 95; RESP 20; TEMP 36.7; O2SAT 99
[2019-07-15 20:45] VITALS: PULSE 95; RESP 20; RESP 4; O2SAT 99
[2019-07-15] MEDS: Albuterol 2.5 MG/3 ML INH SOLN VIAL UPD (20:45)
--- NOTE | 2019-07-15 20:50 | DI.VRAD_ITS ---
PROCEDURE INFORMATION: Exam: XR Chest, 2 Views Exam date and time: 07/15/2019 8:43 PM Age: 34 years old Clinical indication: Shortness of breath TECHNIQUE: Imaging protocol: XR of the chest Views: 2 views. COMPARISON: CR CHEST 2 VIEWS PA,LAT 05/27/2016 8:20 PM FINDINGS: Lungs: No alveolar infiltrate. Pleural space: No pleural fluid collection. No pneumothorax. Heart/Mediastinum: Normal heart size. Bones/joints: Unremarkable. IMPRESSION: No active pulmonary disease. No acute changes compared to 05/27/2016. Dictated and Authenticated by: Jimmie Coleman MD. Ordering:CAIN Alaniz MD
[2019-07-15 21:19] VITALS: PULSE 101; RESP 16; O2SAT 100
== END 2019-07-15 21:05 | disposition home or self-care (01) ==
LOC: ER 21:17
PROVIDERS: Emergency Provider Emergency Medicine; PCP Physician Assistant Medical
DX: R06.2 Wheezing (principal); Z87.891 Personal history of nicotine dependence
CPT/HCPCS: 94640; 99283; 71046; 99284; J7613

== ENCOUNTER 2019-11-26 19:55 | Emergency (ER) | payer MEDICAID, SELFPAY ==
--- NOTE | 2019-11-26 20:00 | DI.RAD_ITS ---
EXAM: XR FOOT RT COMPLETE CLINICAL HISTORY: dorsal pain,swelling. TECHNIQUE: 2D digital imaging was performed. COMPARISON: CR XR foot LT complete from 11/20/2017 FINDINGS: BONES: No acute fracture is present. No bony destructive lesion is seen. Small plantar calcaneal spu r. JOINTS: No dislocation present. SOFT TISSUE: Soft tissue swelling of the forefoot. IMPRESSION: No acute fracture or dislocation. DATA REPOSITORY: RADIATION DOSE DELIVERED:
[2019-11-26 20:01] VITALS: BP 151/98; PULSE 91; RESP 16; TEMP 37.2; O2SAT 97
--- NOTE | 2019-11-26 20:11 | ED.GENADUL_ITS ---
Discharge Plan Disposition Patient Disposition: HOME Condition: Improving Discharge Details Clinical Impression: Soft tissue swelling of joint of foot Primary Care Provider: Keesha Olsen ED Provider: Kimani Hill Home Meds and New Rx's Prescriptions: Continued Narcan 4 mg/actuation spray,non-aerosol 1 spray JALIL ONCE RF: 0 oxycodone 5 mg capsule 10 mg PO Q6H PRN (Reason: pain) RF: 0 albuterol sulfate 90 mcg/actuation HFA aerosol inhaler 2 puff IH Q6H PRNQty: 8 RF: 0 acetaminophen [Tylenol] 325 mg Tablet 1,300 mg PO DAILY RF: 0 Discharge Instructions Additional Instructions: Elevate above the level of your heart to reduce pain and swelling. Continue to apply ice. Wear postop shoe as needed 3 to 5 days time. Follow-up with Dr. Velasquez as planned on . Return to the ER if you have a fever, redness of the foot, or any other acute concerns. Medical Decision Making 34-year-old male reports right dorsal foot pain and swelling today without clear injury. States he was wearing flip-flops but did not notice any injury to the foot. No erythema and no fever. He does have mild pain and swelling of the right dorsal foot on palpation. There are no cords or calf asymmetrical swelling present. Patient referred for x-ray to rule out underlying bony injury. Radiograph does not reveal underlying bony injury. He does have soft tissue swelling. Will place in a postop shoe. He has prestanding follow-up in orthopedics in 2 days time. He understands homecare and indications to seek repeat evaluation. HPI General Mode of arrival: ambulatory . Date/Time Provider Initiated Documentation: 11/26/19 19:57 . Limitations to Documentation: no limitations . Information obtained by: patient . History of Present Illness 34 year old M presents to the emergency department with the chief complaint of Right foot pain and swelling, described as moderate, Quality is described as dull and constant, and is localized to the right and lower extremity. Patient reports no radiation. Patient started experiencing this hour(s) and it has been constant. No relieving factors improve symptom(s), No exacerbating factors reported . Patient notes denies fever/chills and weakness. Patient did receive the following treatments prior to arrival, none Related Data Home Medications Medication Instructions Recorded Confirmed naloxone 4 mg/actuation nasal spray 1 spray JALIL ONCE each 02/26/19 11/26/19 oxycodone 5 mg capsule 10 mg PO Q6H PRN 02/26/19 11/26/19 albuterol sulfate 2 puff IH Q6H PRN #8 gm 07/15/19 11/26/19 acetaminophen [Tylenol] 1,300 mg PO DAILY 11/26/19 11/26/19 Previous Rx's Medication Instructions Recorded albuterol sulfate 2 puff IH Q6H PRN #8 gm 07/15/19 Allergies Allergy/AdvReac Type Severity Reaction Status Date / Time diphenhydramine HCl Allergy Severe Anaphylaxsi Verified 11/26/19 20:06 [From Benadryl] s guaifenesin [From Robitussin] Allergy Unknown Unverified 11/26/19 20:06 ibuprofen [From Advil] Allergy Unknown Verified 11/26/19 20:06 Sulfa (Sulfonamide Allergy Unknown Verified 11/26/19 20:06 Antibiotics) cefuroxime [From Ceftin] Allergy Unverified 11/26/19 20:06 red 40 Allergy Hives Uncoded 11/26/19 20:06 General Stated Complaint: Orthopedic KRIS: 4 Review of Systems Narrative: 6 systems reviewed and otherwise negative. No chest pain or shortness of breath. [facility] Surgical History Laceration of left foot with tendon involvement Status post extensor tendon repair left great toe DOS: 11/29/17 Social History Smoking/Tobacco Use Status: Former Tobacco Use Drug use: Never Substance use type: does not use Do you feel safe at home: Yes Do you feel safe in your relationship?: Yes Exam Narrative Exam Narrative: GEN: awake, alert, oriented 3. Pleasant, well groomed, interactive. HEAD: Normocephalic, atraumatic ENT: Mucous membranes moist, oropharynx unremarkable, External ear exam unremarkable EYES: PERRL, EOMI NECK: Full ROM, no AMY, no menigismus EXT: Full ROM, right dorsal foot swelling and pain with palpation. No significant bruising appreciated. Palpable DP bilaterally. Neuro: Grossly normal neurologic exam, conversant, interactive. Psych: Speech fluent, thoughts congruent, affect normal Course Vital Signs Vital signs: Vital Signs Temperature 37.2 C 11/26/19 20:01 Pulse 91 H 11/26/19 20:01 Respiratory Rate 16 11/26/19 20:01 Blood Pressure 151/98 H 11/26/19 20:01 Pulse Oximetry 97 11/26/19 20:01 Temperature 37.2 C 11/26/19 20:01 Temperature Source Skin 11/26/19 20:01 Pulse 91 H 11/26/19 20:01 Respiratory Rate 16 11/26/19 20:01 Respiratory Effort Non-Labored 11/26/19 20:08 Blood Pressure 151/98 H 11/26/19 20:01 Blood Pressure Position Sitting 11/26/19 20:01 Pulse Oximetry 97 11/26/19 20:01 Oxygen Delivery Method Room Air 11/26/19 20:01 Oxygen Flow Rate 0 11/26/19 20:01 Pain Level 8 11/26/19 20:01
[2019-11-26 20:40] VITALS: BP 151/98; PULSE 91; RESP 16; TEMP 37.2; O2SAT 97
--- NOTE | 2019-11-29 16:03 | DI.VRAD_ITS ---
PROCEDURE INFORMATION: Exam: XR Right Foot Complete Exam date and time: 11/26/2019 8:15 PM Age: 34 years old Clinical indication: Foot; Right; Patient HX: Dorsal pain, swelling TECHNIQUE: Imaging protocol: XR Right foot. Views: 3 or more views. COMPARISON: No relevant prior studies available. FINDINGS: Bones/joints: No fracture or subluxation. Plantar calcaneal spur. Soft tissues: Soft tissue swelling in distal foot. IMPRESSION: Soft tissue swelling. Dictated and Authenticated by: Harsha Munoz MD. Ordering:MANDY Harman MD
== END 2019-11-26 20:55 | disposition home or self-care (01) ==
PROVIDERS: Emergency Provider Emergency Medicine; PCP Physician Assistant Medical
DX: M79.89 Other specified soft tissue disorders (principal); M25.571 Pain in right ankle and joints of right foot
CPT/HCPCS: 99283; 73630

== ENCOUNTER 2020-05-18 20:10 | Emergency (ER) | payer MEDICAID, SELFPAY ==
[2020-05-18] VITALS (29 sets, daily range): BP systolic 121–178; BP diastolic 78–103; PULSE 88–110; RESP 11–26; TEMP 36.8; O2SAT 94–98
--- NOTE | 2020-05-18 20:15 | RT.EKG_ITS ---
APPROVED REPORT Exam: Resting ECG Patient Location: E HR:102 bpm ECG Measurements Heart Rate 102 AXIS NJ 141 P 30 QRSd 102 QRS 37 QT 329 T -31 QTc 431 Conclusion Sinus tachycardia...rate> 99 Borderline T abnormalities, diffuse leads...T flat/neg
--- NOTE | 2020-05-18 20:30 | DI.CT_ITS ---
EXAM: CT THORAX ABD/PEL CTA CLINICAL HISTORY: please evaluate for PE vs dissection. TECHNIQUE: Imaging Protocol: Axial CT angiography was performed with multi-slice acquisition and m ulti-planar and/or 3D reconstructions. CONTRAST MATERIAL: Intravenous: Omnipaque 350 Contrast volume:125 Oral: No COMPARISON: CT ABD PELVIS WITH CONTRAST from 06/15/2015 FINDINGS: CHEST: Tracheobronchial tree: Patent where visualized. Pulmonary parenchyma: No consolidation or dominant measurable mass. No architectural distortion. Pulmonary Arteries: No evidence of filling defect to suggest pulmonary emboli. Mediastinum and Radha: No dominant adenopathy or fluid collection. Visualized thyroid: Unremarkable. Pleura: No effusion or pneumothorax. Heart: The heart is not dilated. No coronary artery calcifications are seen. No pericardial effusion. Aorta: Thoracic aorta non-dilated. No evidence of dissection. Soft Tissues: Unremarkable. Bones: Normal. ABDOMEN AND PELVIS: Abdomen: Celiac axis/mesenteric arteries: No evidence of occlusion or significant stenosis. Renal Arteries: No evidence of occlusion or significant stenosis. There is a single renal artery per fusing each kidney. Aorta: No evidence of occlusion or significant stenosis. No aneurysm or dissection. Pelvis: Iliac Arteries: No evidence of occlusion or significant stenosis. Common Femoral Arteries: No evidence of occlusion or significant stenosis. ABDOMEN: Liver: There is diffuse decreased attenuation of the liver consistent with fatty infiltration. No me asurable mass. Portal, Superior Mesenteric, and Splenic Veins: Unremarkable. Gallbladder and Biliary Tract: No radiodense calculus or dilation. Pancreas: Normal density, no abnormal calcifications or inflammatory process. Spleen: Normal. Adrenals: No masses seen. Kidneys: Normal size, contour and axis. No radiodense stones or obstructive uropathy. No masses seen. Bowel: No obstruction or bowel wall thickening. No evidence of acute appendicitis. Peritoneal Cavity: No ascites, collection or mesenteric inflammatory response. No free air. Lymph Nodes: Within normal limits. Bones: Unremarkable. Soft Tissues: Unremarkable. PELVIS: Bladder: Symmetric distention, no gross wall thickening. Reproductive Organs: Unremarkable as visualized. Lymph Nodes: Within normal limits. Bones: Within normal limits. IMPRESSION: 1. Normal CT Angiogram of the chest, abdomen and pelvis. 2. Hepatic steatosis. 3. No acute chest, abdominal or pelvic process. RADIATION DOSE DELIVERED: 1,406.97mGy.cm Total DLP DATA REPOSITORY: All CT scans at this facility are submitted to the National Radiology Data Registry (NRDR) Dose Index Registry (DIR) with the [employer] (ACR). RADIATION OPTIMIZATION: All CT scans at this facility use at least one of these dose optimization te chniques: automated exposure control; mA and/or kV adjustment per patient size (includes targeted exa ms where dose is matched to clinical indication); or iterative reconstruction.
--- NOTE | 2020-05-18 20:30 | RT.EKG_ITS ---
APPROVED REPORT Exam: Resting ECG Patient Location: E HR:97 bpm ECG Measurements Heart Rate 97 AXIS MI 150 P 41 QRSd 97 QRS 35 QT 343 T -34 QTc 436 Conclusion Sinus rhythm...normal P axis, V-rate 60- 99
--- NOTE | 2020-05-18 20:32 | NUR.NOTE ---
Nursing Note: Pt arrives to ED for c/o of pain left arm starting last night 2330. Reports was at rest when started. It felt like cold or something. Reports since last night left pectoral region sharp with exertion. Denies SOB. Reports no fever, diaphoresis, nausea, dizziness. Pt reports cardaic hx in family. Pt reports right leg discomfort x 2 weeks ago as well . 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 GCS 15. skin warm/dry. on full cardiac monitoring. GCS 15
--- NOTE | 2020-05-18 20:50 | W.ED.GENAD ---
Discharge Plan Disposition Patient Disposition: HOME Condition: Good Discharge Details Clinical Impression: Chest pain, Arm pain Primary Care Provider: Keesha Olsen ED Provider: Corbin Birch Home Meds and New Rx's Prescriptions: New cyclobenzaprine 10 mg tablet 10 mg PO TID PRNQty: 10 RF: 0 Continued meloxicam 15 mg tablet 15 mg PO DAILY Qty: 30 RF: 0 Narcan 4 mg/actuation spray,non-aerosol 1 spray JALIL ONCE RF: 0 oxycodone 5 mg capsule 10 mg PO Q6H PRN (Reason: pain) RF: 0 albuterol sulfate 90 mcg/actuation HFA aerosol inhaler 2 puff IH Q6H PRNQty: 8 RF: 0 acetaminophen [Tylenol] 325 mg Tablet 1,300 mg PO DAILY RF: 0 Discharge Instructions Instructions: Chest Pain (ED) Additional Instructions: Please follow-up with your primary care physician tomorrow Take ibuprofen as needed for pain, 600 mg every 8 hours. You may take Tylenol 650 mg 1 g every 4-6 hours for discomfort, do not exceed 4 g in 24 hours You may take Flexeril for musculoskeletal pain, do not drive for 8 hours after taking this medication I have ordered an outpatient ultrasound for you please follow-up for this study Return earlier should you have new or worsening complaints Discharge Data Discharge Date/Time-TO BE ENTERED AT DEPARTURE: 05/19/20 00:50 Medical Decision Making <CATE Taylor - Last Filed: 05/20/20 09:11> Initially I had concerns for pulmonary embolism, ordered CTA chest abdomen and pelvis out of concern for possible dissection as well If findings are negative per [facility] rad radiology Negative troponin, negative BNP, EKG with nonspecific findings Heart score of 2 with pain that started yesterday at 1130, will repeat troponin and EKG at 2350 Given that this patient has largely negative findings, we will refer him for outpatient ultrasound and refer him back to For possible stress test at the discretion of his provider He will be placed on ibuprofen and muscle relaxants He is encouraged to return should he have new or worsening complaints Case signed out to 11 PM pending repeat troponin and EKG Differential Diagnosis Differential Diagnosis: angina, pulmonary embolism, dissection, musculoskeletal pain Medical Records Medical records reviewed: Yes I reviewed the patient's medical records. Lab Data Lab results reviewed: Yes I reviewed the patient's lab results. <Corbin Birch MD - Last Filed: 05/19/20 00:32> pt's second troponin unremarkable and he is in no distress stating he came in tonight due to pain in left shoulder and elbow, no trauma. Has no swelling of the arm and normal sensation and can fully range the arm so doubt fracture and no evidence of dvt on exam. Suspect musculoskeletal pain but did advise to f/u with pcp this week and return precautions given HPI <CATE Taylor - Last Filed: 05/20/20 09:11> This 35-year-old gentleman with history of chronic back pain presents with report of the left arm pain that started approximately 1130 last night with crying development of the left chest pain. He states that radiates down into his arm. He states that the pain gets worse with ambulation. He denies any change with sitting to supine. He also states she has had some pain in his right lower extremity. The pain was approximately 2 weeks ago. He states that started in his calf and radiated up to his groin. He denies any current chest discomfort. His last episode of pain was just prior to arrival. He denies any fever chills, cough, nausea, vomiting, diaphoresis. He does have significant cardiac history in his family. His dad reportedly had an IL at 30 years old subsequent MRI at age 50 for which she succumbed. He does not smoke tobacco, remote history in 2017. Denies history of known hypertension or hyperlipidemia. Denies any current calf pain or swelling. General Date/Time Provider Initiated Documentation: 05/18/20 20:18. Related Data Home Medications Medication Instructions Recorded Confirmed naloxone 4 mg/actuation nasal spray 1 spray JALIL ONCE each 02/26/19 05/18/20 oxycodone 5 mg capsule 10 mg PO Q6H PRN 02/26/19 05/18/20 albuterol sulfate 2 puff IH Q6H PRN #8 gm 07/15/19 05/18/20 acetaminophen [Tylenol] 1,300 mg PO DAILY 11/26/19 05/18/20 meloxicam 15 mg tablet 15 mg PO DAILY #30 tab 11/29/19 01/03/20 cyclobenzaprine 10 mg PO TID PRN #10 tab 04/04/21 Previous Rx's Medication Instructions Recorded albuterol sulfate 2 puff IH Q6H PRN #8 gm 07/15/19 meloxicam 15 mg tablet 15 mg PO DAILY #30 tab 11/29/19 cyclobenzaprine 10 mg PO TID PRN #10 tab 05/18/20 Allergies Allergy/AdvReac Type Severity Reaction Status Date / Time diphenhydramine HCl Allergy Severe Anaphylaxsi Verified 05/18/20 20:17 [From Benadryl] s guaifenesin [From Robitussin] Allergy Unknown Unverified 05/18/20 20:17 ibuprofen [From Advil] Allergy Unknown Verified 05/18/20 20:17 Sulfa (Sulfonamide Allergy Unknown Verified 05/18/20 20:17 Antibiotics) cefuroxime [From Ceftin] Allergy Unverified 05/18/20 20:17 red 40 Allergy Hives Uncoded 05/18/20 20:17 General Stated Complaint: Chest Pain KRIS: 2 <Corbin Birch MD - Last Filed: 05/19/20 00:32> This 35-year-old gentleman with history of chronic back pain presents with report of the left arm pain that started approximately 1130 last night with crying development of the left chest pain. He states that radiates down into his arm. He states that the pain gets worse with ambulation. He denies any change with sitting to supine. He also states she has had some pain in his right lower extremity. The pain was approximately 2 weeks ago. He states that started in his calf and radiated up to his groin. He denies any current chest discomfort. His last episode of pain was just prior to arrival. He denies any fever chills, cough, nausea, vomiting, diaphoresis. He does have significant cardiac history in his family. His dad reportedly had an IL at 30 years old subsequent MRI at age 50 for which she succumbed. He does not smoke tobacco, remote history in 2017. Denies history of known hypertension or hyperlipidemia. Denies any current calf pain or swelling. Review of Systems <CATE Taylor - Last Filed: 05/20/20 09:11> Narrative: Review of systems obtained x7 aside from where indicated in [facility] <CATE Taylor - Last Filed: 05/20/20 09:11> Surgical History Laceration of left foot with tendon involvement Status post extensor tendon repair left great toe DOS: 11/29/17 Social History Smoking/Tobacco Use Status: Former Tobacco Use Smoking risk assessment performed?: Yes Drug use: Never Substance use type: does not use Current gender identity: male Do you feel safe at home: Yes Do you feel safe in your relationship?: Yes Exam <CATE Taylor - Last Filed: 05/20/20 09:11> Const General: cooperative and no acute distress Neck Other: No carotid bruit, no C-spine tenderness Chest Other: Mild reproducible left lateral pectoral tenderness Resp Effort & Inspection: normal respiratory effort Auscultation: clear to auscultation bilaterally Cardio Rate: tachycardic Rhythm: regular rhythm Heart Sounds: no murmurs GI Other: No abdominal bruit or pulsatile mass No CVA tenderness Skin General skin exam: no rashes or lesions noted Neuro General: patient alert and patient oriented x3 Other: Sensation intact distally, strength intact distally to all 4 extremities Extrem Other: Distal pulses intact all 4 extremities, no visible sign of trauma, no erythema, no crepitus, diffuse tenderness to left arm and upper left chest wall Course <CATE Taylor Last Filed: 05/20/20 09:11> Vital Signs Vital signs: Vital Signs Temperature 36.8 C 05/18/20 20:14 Pulse 109 H 05/18/20 20:14 Respiratory Rate 20 05/18/20 20:14 Blood Pressure 178/103 H 05/18/20 20:14 Pulse Oximetry 98 05/18/20 20:14 Temperature 36.8 C 05/18/20 20:14 Temperature Source Skin 05/18/20 20:14 Pulse 109 H 05/18/20 20:14 Respiratory Rate 16 05/18/20 20:25 Respiratory Effort 05/18/20 20:25 Respiratory Depth Normal 05/18/20 20:25 Respiratory Pattern Normal 05/18/20 20:25 Blood Pressure 178/103 H 05/18/20 20:14 Blood Pressure Position Sitting 05/18/20 20:14 Pulse Oximetry 98 05/18/20 20:14 Oxygen Delivery Method Room Air 05/18/20 20:14 Oxygen Flow Rate 0 05/18/20 20:14 Pain Level 8 05/18/20 20:14 Sign Out <CATE Taylor - Last Filed: 05/20/20 09:11> Sign Out Data: Sign Out Comment: pend trop/ekg repeat Last updated by Saba Lemon PA at 05/18/20 23:43
[2020-05-18 21:05] LABS: Abs Immature Grans 0.05 10^3/uL (0.0-0.06); Absolute Basophil Count 0.04 10^3/uL (0.0-0.2); Absolute Eosinophil Count 0.27 10^3/uL (0.0-0.7); Absolute Monocyte Count 0.61 10^3/uL (0.1-0.8); Basophils % 0.3; Eosinophils % 2.1; HCT 42.8 % (40.0-50.0); HGB 14.2 g/dL (13.5-17.5); Immature Grans % 0.4; Lymphocytes % 25.6; MCH 28.6 pg (27.0-33.0); MCHC 33.2 % (32.0-36.0); MCV 86.3 fL (80-95); MPV 8.9 fL (8.0-11.0); Monocytes % 4.8; Neutrophils % 66.8; Nucleated RBC 0 %; Platelet Count 283 10^3/uL (130-400); RBC 4.96 10^6/uL (4.36-5.78); RDW 12.3 % (11.8-14.1); RDW-SD 39.2 fL; WBC 12.72 10^3/uL (4.4-10.8)
[2020-05-18 21:26] LABS: Absolute Lymphocyte Count 3.26 10^3/uL (1.2-3.4)
[2020-05-18 21:29] LABS: ALT 34 U/L (16-63); AST 18 U/L (15-37); Albumin 3.9 g/dL (3.4-5.0); Alkaline Phosphatase 98 U/L (46-116); Anion Gap 7.8 mmol/L (3-11); BUN 13 mg/dL (7-18); Bilirubin, Total 0.4 mg/dL (0.2-1.0); CO2 30.2 mmol/L (21.0-32.0); CREATININE 1.2 mg/dL (0.70-1.30); Calcium 9.4 mg/dL (8.5-10.1); Chloride 101 mmol/L (98-107); Glucose 99 mg/dL (74-106); NT-proBNP 21 pg/mL (<300); Potassium 3.5 mmol/L (3.5-5.1); Sodium 139 mmol/L (136-145); Troponin I < 0.05 ng/mL (<0.06)
[2020-05-18] MEDS: Omnipaque 350 MG/ML 100 ML BTL IJ (21:30)
[2020-05-18] MEDS: Omnipaque 350 MG/ML 50 ML BTL IJ (21:31)
[2020-05-18] MEDS: Normal Saline - Diluent 50 ML VIAL IV (21:32)
[2020-05-18] MEDS: Normal Saline Flush 10 ML SYR IVP (21:32)
--- NOTE | 2020-05-18 22:33 | DI.VRAD_ITS ---
PROCEDURE INFORMATION: Exam: CTA Chest With Contrast Exam date and time: 05/18/2020 8:49 PM Age: 35 years old Clinical indication: Shortness of breath; Left-sided chest pain; Abdominal pain; Generalized; Patient HX: SOB, left arm pain, chest pain on left; Additional info: Evaluate for pe vs dissection TECHNIQUE: Imaging protocol: Computed tomographic angiography of the chest with contrast. 3D rendering (Not supervised by radiologist): MIP and/or 3D reconstructed images were created by the technologist. Radiation optimization: All CT scans at this facility use at least one of these dose optimization techniques: automated exposure control; mA and/or kV adjustment per patient size (includes targeted exams where dose is matched to clinical indication); or iterative reconstruction. Contrast material: OMNIPAQUE 350; Contrast volume: 125 ml; Contrast route: INTRAVENOUS (IV); COMPARISON: CR XR CHEST 2V PA LATERAL 07/15/2019 8:43 PM FINDINGS: Pulmonary arteries: Normal. No pulmonary emboli. Aorta: Unremarkable. No aortic aneurysm. No aortic dissection. Lungs: Unremarkable. No consolidation. No masses. Pleural spaces: Unremarkable. No pneumothorax. No pleural effusion. Heart: Unremarkable. No cardiomegaly. No pericardial effusion. Lymph nodes: Unremarkable. No enlarged lymph nodes. Bones/joints: Unremarkable. No acute fracture. Soft tissues: Unremarkable. IMPRESSION: No acute findings. PROCEDURE INFORMATION: Exam: CTA Abdomen and Pelvis With Contrast Exam date and time: 05/18/2020 8:49 PM Age: 35 years old Clinical indication: Shortness of breath; Left-sided chest pain; Abdominal pain; Generalized; Patient HX: SOB, left arm pain, chest pain on left; Additional info: Evaluate for pe vs dissection TECHNIQUE: Imaging protocol: Computed tomographic angiography of the abdomen and pelvis with contrast material. 3D rendering (Not supervised by radiologist): MIP and/or 3D reconstructed images were created by the technologist. Radiation optimization: All CT scans at this facility use at least one of these dose optimization techniques: automated exposure control; mA and/or kV adjustment per patient size (includes targeted exams where dose is matched to clinical indication); or iterative reconstruction. Contrast material: OMNIPAQUE 350; Contrast volume: 125 ml; Contrast route: INTRAVENOUS (IV); COMPARISON: CR XR CHEST 2V PA LATERAL 07/15/2019 8:43 PM FINDINGS: Aorta: No aortic aneurysm. No aortic dissection. Celiac trunk and mesenteric arteries: No occlusion or significant stenosis. Renal arteries: No occlusion or significant stenosis. Right iliac arteries: No occlusion or significant stenosis. Left iliac arteries: No occlusion or significant stenosis. Liver: Diffuse fatty infiltration. Gallbladder and bile ducts: Unremarkable. No calcified stones. No ductal dilation. Pancreas: Unremarkable. No mass. No ductal dilation. Spleen: Unremarkable. No splenomegaly. Adrenal glands: Unremarkable. No mass. Kidneys and ureters: Unremarkable. No solid mass. No hydronephrosis. Stomach and bowel: Unremarkable. No obstruction. No mucosal thickening. Appendix: Normal appendix. Intraperitoneal space: Unremarkable. No free air. No significant fluid collection. Lymph nodes: Unremarkable. No enlarged lymph nodes. Urinary bladder: Unremarkable. No mass. Reproductive: Unremarkable as visualized. Bones/joints: No acute fracture. No dislocation. Soft tissues: Unremarkable. IMPRESSION: No acute findings. Dictated and Authenticated by: Eric Walters MD. Ordering:DEBORAH Walter MD
[2020-05-18] MEDS: Cyclobenzaprine 10 MG TAB PO (22:59)
[2020-05-18] MEDS: Ketorolac 15 MG/ML VIAL IVP (22:59)
--- NOTE | 2020-05-18 23:45 | NUR.NOTE ---
Addendum entered by Tara Balderas 05/18/20 23:45: Patient placed on care management sheet to establish primary care provider as requested by . Original Note: Nursing Note:
[2020-05-19] VITALS (7 sets, daily range): BP systolic 134–153; BP diastolic 84–90; PULSE 88–106; RESP 12–25; O2SAT 93–98
[2020-05-19 00:09] LABS: Troponin I < 0.05 ng/mL (<0.06)
== END 2020-05-19 00:50 | disposition home or self-care (01) ==
PROVIDERS: Physician Assistant; Emergency Provider Emergency Medicine; PCP Physician Assistant Medical
DX: R07.89 Other chest pain (principal); M79.602 Pain in left arm
CPT/HCPCS: 36415; 71275; 74177; 80053; 93005; 96374; 96375; 99285; 83880; 84484; 85025; 93010; 99284; J1885; J3490; Q9967

== ENCOUNTER 2020-08-28 11:26 | Emergency (ER) | payer OTHER, SELFPAY ==
[2020-08-28 11:31] VITALS: BP 136/66; PULSE 98; RESP 18; TEMP 36.5; O2SAT 97
--- NOTE | 2020-08-28 11:50 | W.ED.GENAD ---
Discharge Plan Disposition Patient Disposition: HOME Condition: Stable Discharge Details Clinical Impression: Right ankle sprain Primary Care Provider: Keesha Olsen ED Provider: Debbie Schaeffer Home Meds and New Rx's Prescriptions: Continued Narcan 4 mg/actuation spray,non-aerosol 1 spray JALIL ONCE RF: 0 oxycodone 5 mg capsule 10 mg PO Q6H PRN (Reason: pain) RF: 0 albuterol sulfate 90 mcg/actuation HFA aerosol inhaler 2 puff IH Q6H PRNQty: 8 RF: 0 acetaminophen [Tylenol] 325 mg Tablet 1,300 mg PO DAILY RF: 0 Discharge Instructions Instructions: Ankle Sprain (ED) Additional Instructions: Rest, ice, and elevate the affected area as much as possible. Take Tylenol as needed and directed for pain. Take your oxycodone that you have at home as needed and directed for pain not relieved with Tylenol. Follow up with your primary care doctor in 1 week as needed. Follow-up with orthopedics if your symptoms do not improve or worsen. Return to the emergency department with any worsening or new concerning symptoms. 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 He has not taken any medication for pain. He chronically takes oxycodone for back pain. He cannot take Advil due to an allergy. He has tenderness to his medial, anterior lateral ankle as well as proximal dorsal foot. There is no deformity and he is neurovascular intact. There are no open wounds. Will refer for x-rays and give Tylenol and oxycodone. X-rays reviewed and negative. Ankle stirrup splint too small for patient's leg. Patient placed in a walking boot and given crutches. Patient given orthopedic follow-up information if needed. Usual and customary return precautions given prior to discharge. Medical Records Medical records reviewed: Yes I reviewed the patient's medical records. Imaging Data Radiologic Study: Radiologist's impression: XR ANKLE RT COMPLETE CLINICAL HISTORY: twisted in a bucket freight loader, r/o fx. TECHNIQUE: 2D digital imaging was performed. COMPARISON: No exams were available for comparison FINDINGS: Soft tissue swelling noted laterally. No evidence of acute fracture nor widening of the mortise. Small accessory ossicles noted subjacent to the medial malleolus. No evidence of avulsion fracture fragment off the lateral malleolus. Talar dome appears unremarkable. Inferior calcaneal spur measuring 5 millimeters is noted. Base of the 5th metatarsal is intact. IMPRESSION: Soft tissue swelling. No fracture evident. XR FOOT RT COMPLETE CLINICAL HISTORY: twisted in a bucket freight loader, r/o fx. TECHNIQUE: 2D digital imaging was performed. COMPARISON: CR,XR XR FOOT RT COMPLETE from 11/26/2019 FINDINGS: There is no evidence of acute fracture in nor diastasis of the Lisfranc joint. There is dorsal soft tissue swelling but no obvious metatarsal fractures. Alignment is normal. No radiopaque foreign body. Small inferior calcaneal spur is noted. There is no evidence of osseous tarsal coalition. Bone density appears normal. HPI General Mode of arrival: ambulatory. Date/Time Provider Initiated Documentation: 08/28/20 11:42. Limitations to Documentation: no limitations. Information obtained by: patient. HPI Narrative: Patient is a 35-year-old male presents with right ankle and foot pain after his right foot and ankle got twisted while standing inside a bucket freight loader. He has not taken any medication for pain. He states he does take 10 mg of oxycodone every 6 hours for chronic back pain. He denies any head injury, neck pain, chest pain, abdominal pain, back pain, hip or knee pain. Related Data Home Medications Medication Instructions Recorded Confirmed naloxone 4 mg/actuation nasal spray 1 spray JALIL ONCE each 02/26/19 08/28/20 oxycodone 5 mg capsule 10 mg PO Q6H PRN 02/26/19 08/28/20 albuterol sulfate 2 puff IH Q6H PRN #8 gm 07/15/19 08/28/20 acetaminophen [Tylenol] 1,300 mg PO DAILY 11/26/19 08/28/20 Previous Rx's Medication Instructions Recorded albuterol sulfate 2 puff IH Q6H PRN #8 gm 07/15/19 Allergies Allergy/AdvReac Type Severity Reaction Status Date / Time diphenhydramine HCl Allergy Severe Anaphylaxsi Verified 08/28/20 11:29 [From Benadryl] s guaifenesin [From Robitussin] Allergy Unknown Unverified 08/28/20 11:29 ibuprofen [From Advil] Allergy Unknown Verified 08/28/20 11:29 Sulfa (Sulfonamide Allergy Unknown Verified 08/28/20 11:29 Antibiotics) cefuroxime [From Ceftin] Allergy Unverified 08/28/20 11:29 red 40 Allergy Hives Uncoded 08/28/20 11:29 General Stated Complaint: Orthopedic KRIS: 3 Review of Systems All systems reviewed & are unremarkable except as noted in HPI and below Constitutional Constitutional: Reports as per HPI, Denies chills and Denies fever(s) Eyes Eyes: Denies blurry vision ENT Ears, Nose, Mouth, and Throat: Denies dizziness, Denies sore throat and Denies throat swelling Cardiovascular Cardiovascular: Denies chest pain and Denies dyspnea Respiratory Respiratory: Denies cough and Denies dyspnea Gastrointestinal Gastrointestinal: Denies abdominal pain, Denies diarrhea and Denies vomiting Genitourinary Genitourinary: Denies hematuria and Denies dysuria Musculoskeletal Musculoskeletal: Denies back pain and Denies numbness Integumentary/Breasts Skin/Breast: Denies lesions and Denies rash Neurologic Neurologic: Denies dizziness, Denies localized weakness and Denies numbness Allergic/Immunologic Allergic/Immunologic: Denies throat swelling [facility] Medical History (Updated 08/28/20 @ 12:46 by Debbie Schaeffer DO) Chronic back pain Surgical History Laceration of left foot with tendon involvement Status post extensor tendon repair left great toe DOS: 11/29/17 Social History Smoking/Tobacco Use Status: Former Tobacco Use Smoking risk assessment performed?: Yes Alcohol Intake: current Alcohol Intake frequency: holidays/special occasions only Drug use: Never Substance use type: does not use Current gender identity: male Do you feel safe at home: Yes Do you feel safe in your relationship?: Yes Exam Const General: cooperative, healthy appearing and no acute distress HENMT Head: normal to inspection Mouth: oral mucosae normal Eyes General: appearance normal, both eyes and all related structures Neck Neck: normal visual inspection Resp Effort & Inspection: normal respiratory effort and able to speak in complete sentences Cardio Rate: regular rate Skin General skin exam: no rashes or lesions noted Neuro General: patient alert, patient awake and patient oriented x3 Motor: muscle tone normal throughout Extrem Ankle/foot/toe images: 1. Tenderness to palpation to right anterior, lateral and medial ankle, worse in anterior aspect. No ecchymosis or deformity. Other: Mild tenderness to palpation overlying dorsal foot. Right DP/PT pulses intact. Motor/sensory grossly intact to right foot and ankle. No foot deformity noted. Psych Appearance: grossly normal Affect: normal affect Course Vital Signs Vital signs: Vital Signs Temperature 97.7 F 08/28/20 11:31 Pulse 98 H 08/28/20 11:31 Respiratory Rate 18 08/28/20 11:31 Blood Pressure 136/66 08/28/20 11:31 Pulse Oximetry 97 08/28/20 11:31 Temperature 97.7 F 08/28/20 11:31 Temperature Source Temporal Artery Scan 08/28/20 11:31 Pulse 98 H 08/28/20 11:31 Respiratory Rate 18 08/28/20 11:31 Respiratory Effort Non-Labored 08/28/20 11:35 Blood Pressure 136/66 08/28/20 11:31 Blood Pressure Position Supine 08/28/20 11:31 Pulse Oximetry 97 08/28/20 11:31 Oxygen Delivery Method Room Air 08/28/20 11:31 Oxygen Flow Rate 0 08/28/20 11:31 Pain Level 10 08/28/20 11:36 Procedures Orthopedic Splinting/Casting Injury #1: Side: right Lower Extremity Injury Location: lower leg Lower Extremity Immobilizer: boot orthosis (walking boot)
[2020-08-28] MEDS: Acetaminophen 325 MG TAB 650 MG PO (11:59)
[2020-08-28] MEDS: oxyCODONE 10 MG TAB PO (11:59)
--- NOTE | 2020-08-28 12:20 | DI.RAD_ITS ---
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 TECHNIQUE: 2D digital imaging was performed. COMPARISON: CR,XR XR FOOT RT COMPLETE from 11/26/2019 FINDINGS: There is no evidence of acute fracture in nor diastasis of the Lisfranc joint. There is dorsal soft tissue swelling but no obvious metatarsal fractures. Alignment is normal. No radiopaque foreign bod y. Small inferior calcaneal spur is noted. There is no evidence of osseous tarsal coalition. Bone density appears normal. IMPRESSION: DATA REPOSITORY: RADIATION DOSE DELIVERED:
--- NOTE | 2020-08-28 12:20 | DI.RAD_ITS ---
Exam(s) XR ANKLE RT COMPLETE EXAM: XR ANKLE RT COMPLETE CLINICAL HISTORY: twisted in a bucket bolt loader, r/o fx. TECHNIQUE: 2D digital imaging was performed. COMPARISON: No exams were available for comparison FINDINGS: Soft tissue swelling noted laterally. No evidence of acute fracture nor widening of the mortise. Sm all accessory ossicles noted subjacent to the medial malleolus. No evidence of avulsion fracture fra gment off the lateral malleolus. Talar dome appears unremarkable. Inferior calcaneal spur measuring 5 millimeters is noted. Base of the 5th metatarsal is intact. IMPRESSION: Soft tissue swelling. No fracture evident. DATA REPOSITORY: RADIATION DOSE DELIVERED:
== END 2020-08-28 13:34 | disposition home or self-care (01) ==
PROVIDERS: Emergency Provider Physician Assistant; PCP Physician Assistant Medical
DX: S93.491A Sprain of other ligament of right ankle, initial encounter (principal); X50.1XXA Overexertion from prolonged static or awkward postures, initial encounter
CPT/HCPCS: 29515; 99284; 73610; 73630; 99283

== ENCOUNTER 2020-11-24 18:49 | Emergency (ER) | payer MEDICAID, SELFPAY ==
[2020-11-24 18:57] VITALS: BP 146/82; PULSE 97; RESP 18; TEMP 36.7; O2SAT 98
--- NOTE | 2020-11-24 19:24 | ED.GENADUL_ITS ---
Discharge Plan Disposition Patient Disposition: HOME Condition: Stable Discharge Details Clinical Impression: Acute bilateral ankle pain Primary Care Provider: Keesha Olsen ED Provider: Asha Elmore Home Meds and New Rx's Prescriptions: Continued Narcan 4 mg/actuation spray,non-aerosol 1 spray JALIL ONCE RF: 0 oxycodone 5 mg capsule 10 mg PO Q6H PRN (Reason: pain) RF: 0 albuterol sulfate 90 mcg/actuation HFA aerosol inhaler 2 puff IH Q6H PRNQty: 8 RF: 0 acetaminophen [Tylenol] 325 mg Tablet 1,300 mg PO DAILY RF: 0 Discharge Instructions Instructions: Leg Pain (ED) Additional Instructions: You are choosing to leave prior to your imaging seeing reported by radiologist. I will call you with the number given once these results are back. Reading prior to these results came back it may mean that I will ask you to come back if there is something unusual noted in the imaging. As we discussed, Shelton wrap may be supportive, use of that you have been sent home, I would encourage you to use these to help with swelling and discomfort. Please encourage rest, ice, elevation. Tylenol and/or ibuprofen as needed for discomfort. Please call primary care tomorrow to schedule follow-up appointment and discuss your medication needs. If you develop any fever/chills, redness, increased pain or other new/worsening symptoms please seek care urgently once again. Referrals: Keesha Olsen [Primary Care Provider] - Discharge Data Discharge Date/Time-TO BE ENTERED AT DEPARTURE: 11/24/20 20:41 Medical Decision Making Patient is a pleasant 35-year-old gentleman presenting today with chief complaint of bilateral ankle pain. States that he recently began a new job where he is on his feet more frequently. With this job, has been having increased discomfort and now states he is having difficulty ambulating secondary to ankle pain for any length of time. He denies any recent injury but does state that he felt a pop when trying to get from the cigarette today at work. Patient was here 2 months ago for ankle sprain. However, he reports that this pain is very different than the pain he experienced in the past and the pain is deeper and much more centrally located. Patient also reports that he can have intermittent swelling in his bilateral lower extremities again, not linked with injuries. On exam, patient appears morbidly obese. He appears comfortable in no acute distress. He has full range of motion of the knee. Calf is soft and nontender. Full range of motion of ankles. No pain over the medial, lateral malleolus. Achilles tendons are palpated to be intact and nontender. 2+ distal pulses. Intact sensation. intact capillary refill. Does have scarring over the left foot associated with recent injury. I do not note any evidence to suggest infection. No swelling appreciated. Patient I discussed differential diagnosis. Primarily concerned that he is now on his legs more and that he is morbidly obese. Encourage weight loss. Also advised if he has any swelling not willing with any type of injury, this could be associated with dietary issues such as sodium retention. I did consider something like CHF although is not hypoxic or endorsing any shortness of breath. I do feel that further evaluation for this discussed his chronic issues, particularly on his weight, would be of benefit for his long-term health with primary care. Out of abundance of caution, will obtain x-rays of his bilateral ankles. Otherwise, I would like to refer him promptly to his primary care to discuss this further. Patient returned from XR. I reviewed XR, I do not appreciate fracture or dislocation. Patient requesting discharge. I advised that the radiologist has not yet reviewed images, asked that he stay for this but he refuses. He is agreeable to me calling when the results are back, he can come back in if abnormality is noted. Patient is requesting pain medication. 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 Last had narcotic 28 hours ago. Offered non narcotic options including Tylenol, topical pain relief, SHELTON or other orthopedic support devise. He declines this. I do not feel that it is appropriate or safe to refill his oxycodone at this time. I advised that he discuss with PCP tomorrow. Will call patient with results. Return precautions discussed. He will call PCP tomorrow. All ofhis questions and concerns were addressed, he is in agreement with this plan. XR reviewed by radiologist: FINDINGS: Bones/joints: The distal tibia and fibula are intact. Ankle mortise is uniform. Talar dome is intact. Calcaneus is intact. Base of the 5th metatarsal is intact. Soft tissues: No evidence of soft tissue air. Negative for radiopaque foreign body. No evidence of joint effusion at the ankle. IMPRESSION: No acute osseous abnormality. FINDINGS: Bones/joints: No evidence of fracture. Normal ankle mortise. No significant joint effusion at the ankle. Small plantar calcaneal spur. Soft tissues: Moderate soft tissue swelling is noted around the midfoot. IMPRESSION: 1. No acute osseous abnormality. 2. Soft tissue swelling at the midfoot/hindfoot. Called patient and relayed results from radiologist. HPI General Mode of arrival: ambulatory . Date/Time Provider Initiated Documentation: 11/24/20 19:24 . Limitations to Documentation: no limitations . Information obtained by: patient, RN notes reviewed and old records reviewed . History of Present Illness 35 year old M presents to the emergency department with the chief complaint of bilateral ankle pain, described as severe, with intensity rated at 9. Quality is described as aching, and is localized to the left, right and lower extremity. Patient reports no radiation. Patient started experiencing this hour(s) and it has been constant. Immobilization improves symptom(s), Movement worsens symptoms . Patient notes no other symptoms.. Patient did receive the following treatments prior to arrival, none Related Data Home Medications Medication Instructions Recorded Confirmed naloxone 4 mg/actuation nasal spray 1 spray JALIL ONCE each 02/26/19 11/24/20 oxycodone 5 mg capsule 10 mg PO Q6H PRN 02/26/19 11/24/20 albuterol sulfate 2 puff IH Q6H PRN #8 gm 07/15/19 11/24/20 acetaminophen [Tylenol] 1,300 mg PO DAILY 11/26/19 11/24/20 Previous Rx's Medication Instructions Recorded albuterol sulfate 2 puff IH Q6H PRN #8 gm 07/15/19 Allergies Allergy/AdvReac Type Severity Reaction Status Date / Time diphenhydramine HCl Allergy Severe Anaphylaxsi Verified 11/24/20 18:59 [From Benadryl] s guaifenesin [From Robitussin] Allergy Unknown Unverified 11/24/20 18:59 ibuprofen [From Advil] Allergy Unknown Verified 11/24/20 18:59 Sulfa (Sulfonamide Allergy Unknown Verified 11/24/20 18:59 Antibiotics) cefuroxime [From Ceftin] Allergy Unverified 11/24/20 18:59 red 40 Allergy Hives Uncoded 11/24/20 18:59 General Stated Complaint: Orthopedic KRIS: 3 Review of Systems Constitutional Constitutional: Reports as per HPI, Denies chills, Denies fever(s) and Denies weakness Cardiovascular Cardiovascular: Reports as per HPI, Denies chest pain and Denies dyspnea Respiratory Respiratory: Reports as per HPI, Denies cough and Denies dyspnea Musculoskeletal Musculoskeletal: Reports as per HPI and Denies tingling Integumentary/Breasts Skin/Breast: Reports as per HPI, Denies rash and Denies wounds Neurologic Neurologic: Reports as per HPI, Denies tingling, Denies paresthesias and Denies weakness [facility] Medical History (Updated 11/24/20 @ 20:29 by CATE Fuentes) Chronic back pain Surgical History Laceration of left foot with tendon involvement Status post extensor tendon repair left great toe DOS: 11/29/17 Social History Smoking/Tobacco Use Status: Former Tobacco Use Smoking risk assessment performed?: Yes Alcohol Intake: current Alcohol Intake frequency: holidays/special occasions only Drug use: Never Substance use type: does not use Current gender identity: male Do you feel safe at home: Yes Do you feel safe in your relationship?: Yes Exam Const General: cooperative, healthy appearing, comfortable, no acute distress, well developed and well groomed Nutritional Appearance: well nourished and obese Orientation: alert and awake Resp Effort & Inspection: normal respiratory effort, able to speak in complete sentences and no respiratory distress Cardio Rate: regular rate Rhythm: regular rhythm Skin General skin exam: no rashes or lesions noted Lesions: no lesions Rashes: no rashes Trauma: no lacerations or abrasions Neuro General: patient alert and patient awake Cognition: normal cognition Speech: speech normal Gait: normal gait Motor: muscle tone normal throughout Sensory Exam: no sensory deficits noted Extrem Right lower extremity: normal to inspection, full ROM, normal capillary refill, no joint enlargement, knee Details: normal to inspection and normal ROM; no tenderness and no swelling, lower leg Details: normal to inspection and no edema; no tenderness, no localized swelling, no palpable cords and no deformity, ankle Details: normal to inspection, no edema and normal ROM; no tenderness (none elicited with palpation), no swelling, no ecchymosis, no crepitus and achilles tendon exam normal and foot Details: normal capillary refill, normal to inspection, no edema, vascular exam Details: dorsalis pedis pulse present and normal capillary refill and motor-sensory exam Details: light-touch normal; no tenderness; no edema Left lower extremity: normal to inspection, full ROM, normal capillary refill, no joint enlargement, lower leg Details: normal to inspection and no edema; no erythema, no tenderness, no localized swelling and no palpable cords, ankle Details: normal to inspection, no edema and normal ROM; no tenderness (none elicited with exam), no swelling, no warmth, no lacerations, no ecchymosis, no crepitus and achilles tendon exam normal and foot Details: normal capillary refill, normal to inspection, vascular exam Details: dorsalis pedis pulse present and normal capillary refill and motor-sensory exam Details: light-touch normal; no tenderness; no edema Psych Appearance: grossly normal and well kempt Mental Status: mental status grossly normal Speech and Movement: speech and movement normal Course Vital Signs Vital signs: Vital Signs Temperature 36.7 C 11/24/20 18:57 Pulse 97 H 11/24/20 18:57 Respiratory Rate 18 11/24/20 18:57 Blood Pressure 146/82 H 11/24/20 18:57 Pulse Oximetry 98 11/24/20 18:57 Temperature 36.7 C 11/24/20 18:57 Temperature Source Skin 11/24/20 18:57 Pulse 97 H 11/24/20 18:57 Respiratory Rate 18 11/24/20 18:57 Respiratory Effort 11/24/20 18:59 Blood Pressure 146/82 H 11/24/20 18:57 Pulse Oximetry 98 11/24/20 18:57 Pain Level 9 11/24/20 18:57
--- NOTE | 2020-11-24 19:30 | DI.RAD_ITS ---
Exam(s) XR ANKLE RT COMPLETE EXAM: XR ANKLE RT COMPLETE CLINICAL HISTORY: central pain with ambulation, felt pop. TECHNIQUE: 2D digital imaging was performed. COMPARISON: No exams were available for comparison FINDINGS: There is significant soft tissue swelling at the medial aspect foot. No evidence of obvious fracture . No widening of the ankle mortise. Talar dome unremarkable. Small inferior calcaneal spur noted. No osseous tarsal coalition. IMPRESSION: DATA REPOSITORY: RADIATION DOSE DELIVERED:
--- NOTE | 2020-11-24 19:30 | DI.RAD_ITS ---
Exam(s) XR ANKLE LT COMPLETE EXAM: XR ANKLE LT COMPLETE CLINICAL HISTORY: central pain with ambulation. TECHNIQUE: 2D digital imaging was performed. COMPARISON: No exams were available for comparison FINDINGS: Soft tissue swelling both sides the ankle. No evidence of acute fracture. No widening of the mortis e. Talar dome unremarkable. Bone density normal. No osseous tarsal coalition IMPRESSION: No fracture evident. DATA REPOSITORY: RADIATION DOSE DELIVERED:
[2020-11-24 20:38] VITALS: BP 163/99; PULSE 89; RESP 20; O2SAT 97
--- NOTE | 2020-11-24 20:41 | DI.VRAD_ITS ---
PROCEDURE INFORMATION: Exam: XR Right Ankle Exam date and time: 11/24/2020 7:33 PM Age: 35 years old Clinical indication: Ankle; Right; Patient HX: Central pain with ambulation TECHNIQUE: Imaging protocol: XR Right ankle. Views: 3 or more views. COMPARISON: No relevant prior studies available. FINDINGS: Bones/joints: No evidence of fracture. Normal ankle mortise. No significant joint effusion at the ankle. Small plantar calcaneal spur. Soft tissues: Moderate soft tissue swelling is noted around the midfoot. IMPRESSION: 1. No acute osseous abnormality. 2. Soft tissue swelling at the midfoot/hindfoot. Dictated and Authenticated by: Corbin Snell MD. Ordering:WANDER Barry MD
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
== END 2020-11-24 20:41 | disposition home or self-care (01) ==
PROVIDERS: Emergency Provider Physician Assistant; PCP Physician Assistant Medical
DX: M25.571 Pain in right ankle and joints of right foot (principal); M25.572 Pain in left ankle and joints of left foot; E66.01 Morbid (severe) obesity due to excess calories; Z68.42 Body mass index [BMI] 45.0-49.9, adult; Z53.29 Procedure and treatment not carried out because of patient's decision for other reasons
CPT/HCPCS: 99284; 73610

== ENCOUNTER 2021-01-10 19:24 | Emergency (ER) | payer MEDICAID, SELFPAY ==
[2021-01-10 19:33] VITALS: BP 141/110; PULSE 104; RESP 23; TEMP 36.8; O2SAT 97
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
--- NOTE | 2021-01-10 20:00 | DI.RAD_ITS ---
Exam(s) XR CHEST 2V PA LATERAL EXAM: XR CHEST 2V PA LATERAL CLINICAL HISTORY: right chest wall pain. TECHNIQUE: 2D digital imaging was performed. COMPARISON: CR,XR XR CHEST 2V PA LATERAL from 07/15/2019 FINDINGS: Heart size is normal. The mediastinum is not widened. Lungs are clear. No infiltrates nor pleural effusions. IMPRESSION: No acute pulmonary findings.No significant change compared to 07/15/2019. DATA REPOSITORY: RADIATION DOSE DELIVERED:
[2021-01-10] MEDS: oxyCODONE 5 mg/Acetaminophen 325 mg TAB 1 TAB PO (20:15)
[2021-01-10] MEDS: diazePAM 5 MG TAB PO (20:15)
--- NOTE | 2021-01-10 21:27 | DI.VRAD_ITS ---
PROCEDURE INFORMATION: Exam: XR Chest Exam date and time: 01/10/2021 9:01 PM Age: 35 years old Clinical indication: Right chest wall pain TECHNIQUE: Imaging protocol: XR of the chest. Views: 2 views. COMPARISON: CT THORAX ABD/PEL CTA 05/18/2020 9:11 PM FINDINGS: Lungs: Unremarkable. No consolidation. Pleural spaces: Unremarkable. No pleural effusion. No pneumothorax. Heart/Mediastinum: Unremarkable. No cardiomegaly. Bones/joints: Unremarkable. IMPRESSION: No acute findings. Dictated and Authenticated by: Reginaldo Padilla MD. Ordering:DEBORAH Walter MD
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
[2021-01-10 22:21] VITALS: BP 129/92; PULSE 88; RESP 20; TEMP 36.8; O2SAT 98
== END 2021-01-10 22:21 | disposition home or self-care (01) ==
PROVIDERS: Emergency Provider Physician Assistant; PCP Physician Assistant Medical
DX: S46.811A Strain of other muscles, fascia and tendons at shoulder and upper arm level, right arm, initial encounter (principal); V47.5XXA Car driver injured in collision with fixed or stationary object in traffic accident, initial encounter; R07.89 Other chest pain
CPT/HCPCS: 99284; 71046; 73030; 99283

== ENCOUNTER 2021-04-15 20:35 | Emergency (ER) | payer MEDICAID, SELFPAY ==
[2021-04-15] VITALS (9 sets, daily range): BP systolic 133–152; BP diastolic 83–100; PULSE 96–117; RESP 18–22; TEMP 36.8; O2SAT 95–98
--- NOTE | 2021-04-15 21:30 | DI.CT_ITS ---
Exam(s) CT LUMBAR SPINE WO CT SACRUM AND COCCYX WO EXAM: CT LUMBAR SPINE WO CLINICAL HISTORY: acute back pain, decreased rectal sensation, weak. TECHNIQUE: Imaging Protocol: Axial computed tomography images with coronal and sagittal reformatted images were created and reviewed CONTRAST MATERIAL: Noncontrast COMPARISON: CT CT THORAX ABD/PEL CTA from 05/18/[address] SACRUM AND COCCYX WO from 04/15/2021 FINDINGS: Bones: The last intervertebral disc space is designated the L5/S1 level for the numbering purpose of this examination. The vertebral body heights are well maintained. Alignment is satisfactory. No frac ture is seen. T12-L1: No disc herniations or bulges are present. L1-2: No disc herniations or bulges are present. L2-3: No disc herniations or bulges are present. L3-4: No disc herniations or bulges are present. L4-5: No disc herniations or bulges are present. L5-S1: Mild narrowing posterior disc space. Mild disc bulging. Vacuum phenomenon in the disc. Min imal endplate osteophytes. Bilateral neural foraminal encroachment by facet degenerative changes, ri ght greater than left. Findings appear stable when compared with previous CT abdomen pelvis. Sacrum and coccyx: Mild symmetric bilateral spurring of the SI joints. Vacuum phenomenon. Soft Tissues: The paraspinal soft tissues are unremarkable. IMPRESSION: Mild degenerative disc changes and facet degenerative changes cause bilateral neural foraminal narrow ing at L5-S1. No focal disc herniation is visible. RADIATION DOSE DELIVERED: Total DLP DATA REPOSITORY: All CT scans at this facility are submitted to the National Radiology Data Registry (NRDR) Dose Index Registry (DIR) with the [employer] (A[employer]). RADIATION OPTIMIZATION: All CT scans at this facility use at least one of these dose optimization te chniques: automated exposure control; mA and/or kV adjustment per patient size (includes targeted exa ms where dose is matched to clinical indication); or iterative reconstruction.
[2021-04-15] MEDS: LORazepam 2 MG/ML VIAL 1 MG IVP (21:59)
[2021-04-15] MEDS: Dexamethasone 10 MG/ML VIAL IVP (21:59)
[2021-04-15] MEDS: MORPHine 4 MG/ML SYR IVP ×2 (22:00→23:32)
[2021-04-15] MEDS: Normal Saline 500 ML 1000 ML IV (22:03)
[2021-04-15] MEDS: Lidocaine 5% Patch 1 PATCH TP (22:08)
[2021-04-15 22:14] LABS: ALT 28 U/L (16-63); AST 28 U/L (15-37); Albumin 3.9 g/dL (3.4-5.0); Alkaline Phosphatase 100 U/L (46-116); Anion Gap 11.3 mmol/L (3-11); BUN 14 mg/dL (7-18); Bilirubin, Total 0.5 mg/dL (0.2-1.0); CO2 25.7 mmol/L (21.0-32.0); CREATININE 1.1 mg/dL (0.70-1.30); Calcium 9.6 mg/dL (8.5-10.1); Chloride 102 mmol/L (98-107); Glucose 112 mg/dL (74-106); Potassium 4.1 mmol/L (3.5-5.1); Sodium 139 mmol/L (136-145); Total Protein 8.4 g/dL (6.4-8.2)
[2021-04-15 22:17] LABS: Abs Immature Grans 0.05 10^3/uL (0.0-0.06); Absolute Basophil Count 0.05 10^3/uL (0.0-0.2); Absolute Eosinophil Count 0.32 10^3/uL (0.0-0.7); Absolute Lymphocyte Count 3.65 10^3/uL (1.2-3.4); Absolute Neutrophil Count 8.36 10^3/uL (1.2-6.7); Basophils % 0.4; Eosinophils % 2.4; HCT 46.5 % (40.0-50.0); HGB 15.5 g/dL (13.5-17.5); Immature Grans % 0.4; Lymphocytes % 27.8; MCH 28.8 pg (27.0-33.0); MCHC 33.3 % (32.0-36.0); MCV 86.3 fL (80-95); MPV 8.7 fL (8.0-11.0); Monocytes % 5.3; Neutrophils % 63.7; Nucleated RBC 0 %; Platelet Count 309 10^3/uL (130-400); RBC 5.39 10^6/uL (4.36-5.78); RDW 12.5 % (11.8-14.1); RDW-SD 39.2 fL; WBC 13.13 10^3/uL (4.4-10.8)
--- NOTE | 2021-04-15 22:27 | W.ED.GENAD ---
Discharge Plan Disposition Patient Disposition: HOME Condition: Improving Discharge Details Clinical Impression: Back pain, Bilateral leg paresthesia, Lumbar degenerative disc disease, Lumbar radiculopathy Primary Care Provider: Noel Burt ED Provider: Debbie Schaeffer Home Meds and New Rx's Prescriptions: New methocarbamol 500 mg tablet 500 mg PO Q6H PRN (Reason: muscle spasm) Qty: 14 0RF prednisone 20 mg tablet See Rx Instructions .ROUTE .COMPLEX Qty: 18 0RF Rx Instructions: Take 3 tabs daily for 3 days, then 2 tabs daily for 3 days, then 1 tab daily for 3 days. oxycodone 5 mg tablet 5 mg PO Q6H PRN (Reason: pain) Qty: 10 0RF Continued albuterol sulfate 90 mcg/actuation HFA aerosol inhaler 2 puff IH Q6H PRNQty: 8 0RF Discharge Instructions Instructions: Lumbar Radiculopathy (ED), Back Pain (ED), Degenerative Disc Disease (ED) Additional Instructions: Alternate ice and heat to the affected area(s) several times daily for 20 minutes at a time. You are being sent home with prescriptions for muscle relaxers, steroids and pain medication. Take the steroids as directed until finished. Take the muscle relaxers and narcotic pain medication as needed directed for pain not relieved with Tylenol. A referral has been placed to the Spine [facility] at [facility]. You will be contacted by them regarding a follow-up appointment. You can also call [facility] at [phone] and ask for the Spine Center. It is also recommended that you obtain an outpatient lumbar spine MRI. This requires primary authorization by your primary care doctor. This plan has been placed on our care management list to help arrange for a follow-up appointment with your primary care doctor and to confirm that this test is ordered. A referral for physical therapy has been placed and likely you will be contacted by them regarding scheduling therapy sessions once your pain improves. Return immediately to the emergency department if you develop any worsening or new concerning symptoms. Stand Alone Forms: Physical Therapy Referral Referrals: Percy Duckworth PT [PHYSICAL THERAPIST] - Discharge Data Discharge Date/Time-TO BE ENTERED AT DEPARTURE: 04/16/21 14:58 Discharge Physician: Debbie Schaeffer Medical Decision Making <Mejia Kang MD - Last Filed: 04/15/21 23:42> 36-year-old male history of prior back injury no prior surgeries presents with acute onset atraumatic lower back pain rating to bilateral lower extremities, associated with acute onset weakness of bilateral lower extremities and decrease in station to light touch right greater than left lower extremity, endorses several days of difficulty since he may need to have a bowel movement and paresthesias in his testicles, on examination no midline spinal tenderness afebrile nontoxic, appears uncomfortable with exacerbation of symptoms when moving lower extremities, has full strength in lower extremities some decrease sensation to light touch around the ankle of his right lower extremity, patient has normal rectal tone and sensation however is not squeezing during examination. Consider bulging disc with spinal cord impingement versus cauda equina versus unlikely spinal epidural abscess or spinal mass. Analgesia anti-inflammatory, we do not have access to MRI at this time will perform stat CT for screening purposes however if symptoms are persistent despite analgesia anti-inflammatory we will highly consider transfer for stat MRI to rule out cauda equina. Slight improvement with of symptomatology with medications, has mobility of bilateral lower extremities, still some decreased sensation to light touch in ankles bilaterally. CT lumbar sacrum showing foraminal narrowing L5-S1. Given symptomatology on arrival and describes symptomatology before arrival, have placed call to [facility] to speak with neurosurgical/spinal service with regards to potentially transferring patient for stat MRI and evaluation. <Allan Cortez DO - Last Filed: 04/16/21 06:57> 36-year-old male history of prior back injury no prior surgeries presents with acute onset atraumatic lower back pain rating to bilateral lower extremities, associated with acute onset weakness of bilateral lower extremities and decrease in station to light touch right greater than left lower extremity, endorses several days of difficulty since he may need to have a bowel movement and paresthesias in his testicles, on examination no midline spinal tenderness afebrile nontoxic, appears uncomfortable with exacerbation of symptoms when moving lower extremities, has full strength in lower extremities some decrease sensation to light touch around the ankle of his right lower extremity, patient has normal rectal tone and sensation however is not squeezing during examination. Consider bulging disc with spinal cord impingement versus cauda equina versus unlikely spinal epidural abscess or spinal mass. Analgesia anti-inflammatory, we do not have access to MRI at this time will perform stat CT for screening purposes however if symptoms are persistent despite analgesia anti-inflammatory we will highly consider transfer for stat MRI to rule out cauda equina. Slight improvement with of symptomatology with medications, has mobility of bilateral lower extremities, still some decreased sensation to light touch in ankles bilaterally. CT lumbar sacrum showing foraminal narrowing L5-S1. Given symptomatology on arrival and describes symptomatology before arrival, have placed call to [facility] to speak with neurosurgical/spinal service with regards to potentially transferring patient for stat MRI and evaluation. Dr Cortez 2:11 AM Case is signed out to me by my colleague Dr. Jorge Morales. Please refer to his HPI, physical exam, assessment and plan. At time of reassessment after transition of care repeat exam continues to demonstrate no bowel or bladder incontinence here. He has been able to urinate here does not show evidence of retaining currently. Repeat exam shows intact sensation for the saddle region, the testicles, intact rectal tone, and intact sensation throughout both lower extremities without any significant diminishment currently. No testicular tenderness on exam. Normal cremasteric reflex bilaterally. Patient does admit to mild subjective weakness in lower extremities, as well as tingling in the lower extremities. Currently the patient does not show clinical evidence of acute cauda equina syndrome. Department did call back and I discussed the case with neurosurgery Dr. Jackson, and at this time he has reviewed the CT images, he sees no significant abnormalities nor evidence of cord compression. He recommends urgent MRI in the morning but does not recommend emergent MRI tonight or transfer for it. Based on exam and imaging he does not feel that the patient would be a candidate for surgery. He recommends continuation of steroids and muscle relaxants as needed. We will keep the patient here tonight, monitor him closely, scheduled MRI early this morning. No beds are currently available at [facility], [facility], or [facility]. We will keep the patient here in the ED for the time being. 6:56 AM Patient remained stable throughout the night. Pain well controlled. Strength present. Post void bladder scan revealed only 60 mL of urine. No evidence of significant retention. Patient will have MRI this morning. Patient will be signed out to oncoming physician for reassessment after MRI. Patient still shows no signs of cauda equina syndrome on repeat exam. FINDINGS: Vertebrae: No acute fracture. Normal alignment. Discs/Spinal canal/Neural foramina: There is a broad-based disc bulge at L5-S1 with mild bilateral facet arthropathy causing mild to moderate bilateral neural foraminal narrowing, similar to prior MRI. No severe spinal canal stenosis. Soft tissues: Unremarkable. IMPRESSION: 1. No acute fracture. 2. Mild to moderate neural foraminal narrowing at L5-S1. Thank you for allowing us to participate in the care of your patient. Dictated and Authenticated by: Nova Brooks FINDINGS: Bones/joints: Unremarkable. No acute fracture. No dislocation. Soft tissues: Unremarkable. IMPRESSION: No acute findings. Thank you for allowing us to participate in the care of your patient. Dictated and Authenticated by: Belén Brooks MD 04/15/2021 11:36 PM Eastern Time ([place] & [place]) <Debbie Schaeffer DO - Last Filed: 04/19/21 08:58> 36-year-old male history of prior back injury no prior surgeries presents with acute onset atraumatic lower back pain rating to bilateral lower extremities, associated with acute onset weakness of bilateral lower extremities and decrease in station to light touch right greater than left lower extremity, endorses several days of difficulty since he may need to have a bowel movement and paresthesias in his testicles, on examination no midline spinal tenderness afebrile nontoxic, appears uncomfortable with exacerbation of symptoms when moving lower extremities, has full strength in lower extremities some decrease sensation to light touch around the ankle of his right lower extremity, patient has normal rectal tone and sensation however is not squeezing during examination. Consider bulging disc with spinal cord impingement versus cauda equina versus unlikely spinal epidural abscess or spinal mass. Analgesia anti-inflammatory, we do not have access to MRI at this time will perform stat CT for screening purposes however if symptoms are persistent despite analgesia anti-inflammatory we will highly consider transfer for stat MRI to rule out cauda equina. Slight improvement with of symptomatology with medications, has mobility of bilateral lower extremities, still some decreased sensation to light touch in ankles bilaterally. CT lumbar sacrum showing foraminal narrowing L5-S1. Given symptomatology on arrival and describes symptomatology before arrival, have placed call to [facility] to speak with neurosurgical/spinal service with regards to potentially transferring patient for stat MRI and evaluation. Dr Cortez 2:11 AM Case is signed out to me by my colleague Dr. Jorge Morales. Please refer to his HPI, physical exam, assessment and plan. At time of reassessment after transition of care repeat exam continues to demonstrate no bowel or bladder incontinence here. He has been able to urinate here does not show evidence of retaining currently. Repeat exam shows intact sensation for the saddle region, the testicles, intact rectal tone, and intact sensation throughout both lower extremities without any significant diminishment currently. No testicular tenderness on exam. Normal cremasteric reflex bilaterally. Patient does admit to mild subjective weakness in lower extremities, as well as tingling in the lower extremities. Currently the patient does not show clinical evidence of acute cauda equina syndrome. Department did call back and I discussed the case with neurosurgery Dr. Jackson, and at this time he has reviewed the CT images, he sees no significant abnormalities nor evidence of cord compression. He recommends urgent MRI in the morning but does not recommend emergent MRI tonight or transfer for it. Based on exam and imaging he does not feel that the patient would be a candidate for surgery. He recommends continuation of steroids and muscle relaxants as needed. We will keep the patient here tonight, monitor him closely, scheduled MRI early this morning. No beds are currently available at [facility], [facility], or [facility]. We will keep the patient here in the ED for the time being. 6:56 AM Patient remained stable throughout the night. Pain well controlled. Strength present. Post void bladder scan revealed only 60 mL of urine. No evidence of significant retention. Patient will have MRI this morning. Patient will be signed out to oncoming physician for reassessment after MRI. Patient still shows no signs of cauda equina syndrome on repeat exam. FINDINGS: Vertebrae: No acute fracture. Normal alignment. Discs/Spinal canal/Neural foramina: There is a broad-based disc bulge at L5-S1 with mild bilateral facet arthropathy causing mild to moderate bilateral neural foraminal narrowing, similar to prior MRI. No severe spinal canal stenosis. Soft tissues: Unremarkable. IMPRESSION: 1. No acute fracture. 2. Mild to moderate neural foraminal narrowing at L5-S1. Thank you for allowing us to participate in the care of your patient. Dictated and Authenticated by: Nova Brooks FINDINGS: Bones/joints: Unremarkable. No acute fracture. No dislocation. Soft tissues: Unremarkable. IMPRESSION: No acute findings. Thank you for allowing us to participate in the care of your patient. Dictated and Authenticated by: Belén Brooks MD 04/15/2021 11:36 PM Eastern Time ([place] & [place]) 0800 -- Dr. Maksim Gibbs endorsed to continue to monitor while awaiting plan for MRI at 11 AM this morning. Patient was to have anxiolytic medication prior to his MRI at 730 but this was inadvertently not given. Plan will be for MRI at 11 AM. Patient has remained stable. 1145 --MRI unable to be completed as patient as pt is too large. Patient did not fit through the MRI scanner and refused to lift his arms up over his head which may assist with this as he stated this would make him too short of breath. Reassessment of patient notes that he has symmetric reflexes and intact sensation and motor to his lower extremities but is complaining of continued midline lower back pain radiating into both legs with tingling and numbness. He had admitted to bowel incontinence for the last 2 days. Discussed with MRI and apparently we have the largest [place] of the [place]. Will determine if there is an open MRI available and will discuss with [facility] and see if they have open MRI or another option available. 1330 --patient was able to ambulate and states his pain is improved and his sensation in his legs is returning. 1400 --discussed with [facility] neurosurgery --as patient symptoms are improving and he has no observable focal deficits with report of normal rectal tone, normal bladder scan, presentation does not appear consistent with acute cauda equina syndrome and thus does not require emergent transfer for MRI. Differential diagnosis includes disc herniation. Recommend patient follow-up with ortho spine at the spine center. A referral has been placed. Recommended he obtain an outpatient MRI and continue symptom management and physical therapy to help with mobilization. Plan discussed with care management and they will follow up with the primary care doctor as this test will require prior authorization. Important notes include that patient has a large BMI and is claustrophobic. Patient was given oxycodone to go as well as a prescription. Usual and customary return precautions given prior to discharge. Medical Records Medical records reviewed: Yes I reviewed the patient's medical records. Lab Data Lab results reviewed: Yes I reviewed the patient's lab results. Labs: Laboratory Tests Range/Units 04/15/21 04/15/21 04/15/21 21:49 21:49 22:10 WBC Cancelled 13.13 H RBC Cancelled 5.39 Hgb Cancelled 15.5 Hct Cancelled 46.5 MCV Cancelled 86.3 MCH Cancelled 28.8 MCHC Cancelled 33.3 RDW Cancelled 12.5 Plt Count Cancelled 309 MPV Cancelled 8.7 Immature Gran % Cancelled 0.4 Neutrophils % Cancelled 63.7 Band Neutrophils % Cancelled Lymphocytes % Cancelled 27.8 Atypical Lymphs % Cancelled Monocytes % Cancelled 5.3 Eosinophils % Cancelled 2.4 Basophils % Cancelled 0.4 Metamyelocytes % Cancelled Myelocytes % Cancelled Promyelocytes % Cancelled Other Cells % Cancelled Nucleated RBC % Cancelled 0 Absolute Neutrophils Cancelled 8.36 H Absolute Lymphocytes Cancelled 3.65 H Absolute Monocytes Cancelled 0.70 Absolute Eosinophils Cancelled 0.32 Absolute Basophils Cancelled 0.05 RBC Morphology Cancelled Polychromasia Cancelled Hypochromasia Cancelled Poikilocytosis Cancelled Basophilic Stippling Cancelled Anisocytosis Cancelled Microcytosis Cancelled Macrocytosis Cancelled Spherocytes Cancelled Tear Drop Cells Cancelled Ovalocytes Cancelled Stomatocytes Cancelled [place] Bodies Cancelled Mónica Cells/Echinocytes Cancelled Acanthocytes (Spur) Cancelled Schistocytes Cancelled Sodium (136-145) mmol/L 139 Potassium (3.5-5.1) mmol/L 4.1 Chloride (98-107) mmol/L 102 Carbon Dioxide (21.0-32.0) mmol/L 25.7 Anion Gap (3-11) mmol/L 11.3 H BUN (7-18) mg/dL 14 Creatinine (0.70-1.30) mg/dL 1.1 Estimated GFR/1.73 m2 (mL/min/1.73m2) >= 60.00 Glucose (74-106) mg/dL 112 H Calcium (8.5-10.1) mg/dL 9.6 Total Bilirubin (0.2-1.0) mg/dL 0.5 AST (15-37) U/L 28 ALT (16-63) U/L 28 Alkaline Phosphatase (46-116) U/L 100 Total Protein (6.4-8.2) g/dL 8.4 H Albumin (3.4-5.0) g/dL 3.9 HPI <Mejia Kang MD - Last Filed: 04/15/21 23:42> General Date/Time Provider Initiated Documentation: 04/15/21 21:29. HPI Narrative: 36-year-old male history of prior lower back injury presents with acute onset atraumatic lower back pain radiating to both legs, associated with acute weakness of bilateral lower extremities causing him to drop to his knees, has had poor sensation in his buttock and genital region over the past several days, has had issues sensing when he needs to have a bowel movement. Denies fevers chills nausea or vomiting. Denies history of back surgery Related Data Home Medications Medication Instructions Recorded Confirmed albuterol sulfate 90 mcg/actuation 2 puff IH Q6H PRN #8 gm 20 04/15/21 aerosol inhaler methocarbamol 500 mg tablet 500 mg PO Q6H PRN #14 tab 04/16/21 oxycodone 5 mg tablet 5 mg PO Q6H PRN #10 tab 04/16/21 prednisone 20 mg tablet See Rx Instructions .ROUTE 04/16/21 .COMPLEX #18 tab Previous Rx's Medication Instructions Recorded albuterol sulfate 90 mcg/actuation 2 puff IH Q6H PRN #8 gm 07/15/19 aerosol inhaler methocarbamol 500 mg tablet 500 mg PO Q6H PRN #14 tab 04/16/21 oxycodone 5 mg tablet 5 mg PO Q6H PRN #10 tab 04/16/21 prednisone 20 mg tablet See Rx Instructions .ROUTE 04/16/21 .COMPLEX #18 tab Allergies Allergy/AdvReac Type Severity Reaction Status Date / Time diphenhydramine HCl Allergy Severe Anaphylaxsi Verified 04/15/21 20:57 [From Benadryl] s guaifenesin [From Robitussin] Allergy Unknown Unverified 04/15/21 20:57 ibuprofen [From Advil] Allergy Unknown Verified 04/15/21 20:57 Sulfa (Sulfonamide Allergy Unknown Verified 04/15/21 20:57 Antibiotics) cefuroxime [From Ceftin] Allergy Unverified 04/15/21 20:57 red 40 Allergy Hives Uncoded 04/15/21 20:57 General Stated Complaint: Nk/Back Pain KRIS: 3 Review of Systems <Mejia Kang MD - Last Filed: 04/15/21 23:42> Narrative: Review of Systems Constitutional: negative Eyes: negative ENT: negative Cardiovascular: negative Respiratory: negative Gastrointestinal: negative : negative Musculoskeletal: Back pain Skin: negative Neurologic: Gluteal anesthesia, leg weakness Psych: negative PFSH <Mejia Kang MD - Last Filed: 04/15/21 23:42> All Active Problems Right ankle sprain (Acute) Acute bilateral ankle pain (Acute) Muscle strain, shoulder region (Acute) Back pain (Acute) Bilateral leg paresthesia (Acute) Lumbar degenerative disc disease (Acute) Lumbar radiculopathy (Acute) Chest pain (Acute) Arm pain (Acute) Posterior tibial tendinitis, right leg (Acute) Sprain of right wrist (Acute) [place] teeth extracted (Acute) jail current use of therapeutic drug (Acute) Therapeutic drug monitoring (Acute) Lower back injury (Acute) Injury of neck (Acute) Low back strain (Acute) Snoring (Acute) Drowsy (Acute) Low back pain (Acute) Lumbago with sciatica (Acute) Pain in thoracic spine (Acute) Neck pain (Acute) Joint pain (Acute) Arthropathy (Acute) Gastritis (Acute) Pharyngitis (Acute) Developmental academic disorder (Acute) Nicotine dependence (Acute) Severe obesity (Acute) Obesity (Chronic) Right knee pain (Acute) Laceration of left foot with tendon involvement (Chronic) Status post extensor tendon repair left great toe DOS: 11/29/17 Medical History (Updated 04/16/21 @ 14:26 by Debbie Schaeffer DO) Chronic back pain Social History Smoking/Tobacco Use Status: Former Tobacco Use Smoking risk assessment performed?: Yes Alcohol Intake: current Alcohol Intake frequency: holidays/special occasions only Drug use: Never Substance use type: does not use Current gender identity: male Do you feel safe at home: Yes Do you feel safe in your relationship?: Yes Exam <Mejia Kang MD - Last Filed: 04/15/21 23:42> Narrative Exam Narrative: Physical Examination General: alert, awake, cooperative, resting comfortably, no acute distress HEENT: normocephalic, atraumatic; PERRL, EOM intact, conjunctiva normal; no nasal discharge; moist mucous membranes, oral and pharyngeal mucosa normal, tolerating secretions Neck: supple, trachea midline; full ROM Chest: normal to inspection Respiratory: normal respiratory effort, speaking in full sentences, clear to auscultation, no wheezing, rales or rhonchi Cardiac: regular rate, regular rhythm, S1S2 intact, no murmurs rubs or gallops GI: abdomen soft, non-tender, non-distended; no palpable mass or hepatosplenomegaly Back: No midline spinal tenderness Skin: no lesions, rashes or trauma appreciated Neuro: AAOx3, normal speech, moving all extremities, 5 out of 5 strength upper extremities, 5 out of 5 strength lower extremities bilaterally however reproduction of pain with extension of right lower extremity, slight decreased sensation to light touch around area of ankle right lower extremity, normal sensation to light touch left ankle, patient has normal rectal tone and sensation however is not squeezing during rectal examination Extremities: No signs of trauma Psych: Appropriate mood and affect Course <Mejia Kang MD - Last Filed: 04/15/21 23:42> Vital Signs Vital signs: Vital Signs Temperature 36.8 C 04/15/21 20:45 Pulse 117 H 04/15/21 20:45 Respiratory Rate 22 04/15/21 20:45 Blood Pressure 152/100 H 04/15/21 20:45 Pulse Oximetry 98 04/15/21 20:45 Temperature 36.8 C 04/15/21 20:45 Temperature Source Temporal Artery Scan 04/15/21 20:45 Pulse 106 H 04/15/21 22:15 Respiratory Rate 22 04/15/21 20:45 Respiratory Effort Non-Labored 04/15/21 20:52 Blood Pressure 136/90 04/15/21 22:15 Blood Pressure Mean 100 04/15/21 22:15 Pulse Oximetry 98 04/15/21 20:46 Oxygen Delivery Method Room Air 04/15/21 20:45 Oxygen Flow Rate 0 04/15/21 20:45 Pain Level 10 04/15/21 20:45 Lab/Test Results Lab/Test Results: Laboratory Tests Range/Units 04/15/21 04/15/21 04/15/21 21:49 21:49 22:10 WBC Cancelled 13.13 H RBC Cancelled 5.39 Hgb Cancelled 15.5 Hct Cancelled 46.5 MCV Cancelled 86.3 MCH Cancelled 28.8 MCHC Cancelled 33.3 RDW Cancelled 12.5 Plt Count Cancelled 309 MPV Cancelled 8.7 Immature Gran % Cancelled 0.4 Neutrophils % Cancelled 63.7 Band Neutrophils % Cancelled Lymphocytes % Cancelled 27.8 Atypical Lymphs % Cancelled Monocytes % Cancelled 5.3 Eosinophils % Cancelled 2.4 Basophils % Cancelled 0.4 Metamyelocytes % Cancelled Myelocytes % Cancelled Promyelocytes % Cancelled Other Cells % Cancelled Nucleated RBC % Cancelled 0 Absolute Neutrophils Cancelled 8.36 H Absolute Lymphocytes Cancelled 3.65 H Absolute Monocytes Cancelled 0.70 Absolute Eosinophils Cancelled 0.32 Absolute Basophils Cancelled 0.05 RBC Morphology Cancelled Polychromasia Cancelled Hypochromasia Cancelled Poikilocytosis Cancelled Basophilic Stippling Cancelled Anisocytosis Cancelled Microcytosis Cancelled Macrocytosis Cancelled Spherocytes Cancelled Tear Drop Cells Cancelled Ovalocytes Cancelled Stomatocytes Cancelled [place] Bodies Cancelled Mónica Cells/Echinocytes Cancelled Acanthocytes (Spur) Cancelled Schistocytes Cancelled Sodium (136-145) mmol/L 139 Potassium (3.5-5.1) mmol/L 4.1 Chloride (98-107) mmol/L 102 Carbon Dioxide (21.0-32.0) mmol/L 25.7 Anion Gap (3-11) mmol/L 11.3 H BUN (7-18) mg/dL 14 Creatinine (0.70-1.30) mg/dL 1.1 Estimated GFR/1.73 m2 (mL/min/1.73m2) >= 60.00 Glucose (74-106) mg/dL 112 H Calcium (8.5-10.1) mg/dL 9.6 Total Bilirubin (0.2-1.0) mg/dL 0.5 AST (15-37) U/L 28 ALT (16-63) U/L 28 Alkaline Phosphatase (46-116) U/L 100 Total Protein (6.4-8.2) g/dL 8.4 H Albumin (3.4-5.0) g/dL 3.9 Sign Out <Mejia Kang MD - Last Filed: 04/15/21 23:42> Sign Out Data: Sign Out Comment: pending consultation with [facility] spine service (ortho covering tonight); MRI here in AM v transfer for stat eval Last updated by Mejia Kang MD at 04/16/21 00:11 Sign Out Comment: Pending MRI this morning. Reevaluate post MRI. Last updated by Allan Cortez DO at 04/16/21 06:57
[2021-04-15] MEDS: Cyclobenzaprine 10 MG TAB PO (23:31)
--- NOTE | 2021-04-15 23:35 | DI.VRAD_ITS ---
PROCEDURE INFORMATION: Exam: CT Lumbar Spine Without Contrast Exam date and time: 04/15/2021 9:43 PM Age: 36 years old Clinical indication: Acute back pain, decreased rectal sensation, weak TECHNIQUE: Imaging protocol: Computed tomography images of the lumbar spine without contrast. Radiation optimization: All CT scans at this facility use at least one of these dose optimization techniques: automated exposure control; mA and/or kV adjustment per patient size (includes targeted exams where dose is matched to clinical indication); or iterative reconstruction. COMPARISON: MRI - LUMBAR SPINE WO CONTRAST 12/03/2016 11:21 AM FINDINGS: Vertebrae: No acute fracture. Normal alignment. Discs/Spinal canal/Neural foramina: There is a broad-based disc bulge at L5-S1 with mild bilateral facet arthropathy causing mild to moderate bilateral neural foraminal narrowing, similar to prior MRI. No severe spinal canal stenosis. Soft tissues: Unremarkable. IMPRESSION: 1. No acute fracture. 2. Mild to moderate neural foraminal narrowing at L5-S1. Dictated and Authenticated by: Belén Hernandez MD. Ordering:THOMAS Ba MD
--- NOTE | 2021-04-15 23:37 | DI.VRAD_ITS ---
PROCEDURE INFORMATION: Exam: CT Pelvis Without Contrast; Skeletal Exam date and time: 04/15/2021 9:43 PM Age: 36 years old Clinical indication: Acute lbp, decreased rectal sensation TECHNIQUE: Imaging protocol: Computed tomography images of the pelvis without contrast. Exam focused on the skeletal structures. Radiation optimization: All CT scans at this facility use at least one of these dose optimization techniques: automated exposure control; mA and/or kV adjustment per patient size (includes targeted exams where dose is matched to clinical indication); or iterative reconstruction. COMPARISON: CT THORAX ABD/PEL CTA 05/18/2020 9:11 PM FINDINGS: Bones/joints: Unremarkable. No acute fracture. No dislocation. Soft tissues: Unremarkable. IMPRESSION: No acute findings. Dictated and Authenticated by: Belén Hernandez MD. Ordering:THOMAS Ba MD
[2021-04-16] MEDS: MORPHine 4 MG/ML SYR IVP ×2 (00:28→06:08)
[2021-04-16 06:07] VITALS: O2SAT 94
[2021-04-16 06:08] VITALS: BP 118/78; PULSE 102; O2SAT 96
[2021-04-16] MEDS: Cyclobenzaprine 10 MG TAB PO (06:08)
[2021-04-16 09:03] VITALS: O2SAT 96
[2021-04-16 09:04] VITALS: BP 120/94; PULSE 92; O2SAT 95
[2021-04-16 09:06] VITALS: TEMP 36.7
[2021-04-16] MEDS: diazePAM 10 MG/2 ML SYR IVP (11:06)
[2021-04-16] MEDS: Lidocaine 5% Patch 1 PATCH TP (12:46)
[2021-04-16] MEDS: oxyCODONE 5 MG TAB PO (14:44)
[2021-04-16] MEDS: predniSONE 20 MG TAB 60 MG PO (14:44)
== END 2021-04-16 14:58 | disposition home or self-care (01) ==
PROVIDERS: Emergency Medicine; Emergency Provider Physician Assistant; PCP Physician Assistant
DX: M51.16 Intervertebral disc disorders with radiculopathy, lumbar region (principal); R20.2 Paresthesia of skin; M54.50 Low back pain, unspecified
CPT/HCPCS: 36415; 80053; 96361; 96374; 96375; 96376; 99284; 72131; 72192; 85025; J1100; J2060; J2270; J3360; J7512

== ENCOUNTER 2021-05-13 10:08 | Outpatient (REF) | payer MEDICAID, SELFPAY ==
[2021-05-13 16:48] LABS: Hemoglobin A1C 5.9 % (<5.7)
[2021-05-13 17:06] LABS: ALT 35 U/L (16-63); AST 19 U/L (15-37); Albumin 3.9 g/dL (3.4-5.0); Alkaline Phosphatase 89 U/L (46-116); Anion Gap 10.8 mmol/L (3-11); BUN 18 mg/dL (7-18); Bilirubin, Total 0.7 mg/dL (0.2-1.0); CO2 25.2 mmol/L (21.0-32.0); CREATININE 1.1 mg/dL (0.70-1.30); Calcium 9.3 mg/dL (8.5-10.1); Chloride 102 mmol/L (98-107); FREE T4 1.01 ng/dL (0.76-1.46); Glucose 121 mg/dL (74-106); Sodium 138 mmol/L (136-145); TSH 1.91 uIU/mL (0.36-3.74); Total Protein 7.4 g/dL (6.4-8.2)
[2021-05-14 15:12] LABS: Calculated LDL 106 mg/dL (<100); Cholesterol 194 mg/dL (<200); HDL Cholesterol 42 mg/dL (40-60); Triglyceride 231 mg/dL (<150)
== END 2021-05-13 10:09 | disposition home or self-care (01) ==
LOC: NCHCN 10:08
PROVIDERS: PCP Physician Assistant; Visit Provider Physician Assistant
DX: E66.01 Morbid (severe) obesity due to excess calories (principal); R73.03 Prediabetes
CPT/HCPCS: 80053; 80061; 83036; 84439; 84443

== ENCOUNTER 2021-08-18 19:33 | Emergency (ER) | payer MEDICAID, SELFPAY ==
[2021-08-18 20:06] VITALS: BP 147/109; PULSE 112; RESP 20; TEMP 36.7; O2SAT 96
[2021-08-18 20:11] VITALS: RESP 19
--- NOTE | 2021-08-18 20:26 | ED.GENADUL_ITS ---
Discharge Plan Disposition Patient Disposition: HOME Condition: Improving Discharge Details Clinical Impression: Lumbago Primary Care Provider: Noel Burt ED Provider: Kimani Hill Home Meds and New Rx's Prescriptions: New prednisone 50 mg tablet 50 mg PO DAILY 5 Days Qty: 5 0RF Discharge Instructions Instructions: Low Back Strain (ED) Additional Instructions: We will refer you to the spine center again for a follow-up appointment. Home to rest today. Small, frequent fluids that you maintain good hydration. Take prednisone as prescribed. Return for recurrent pain that is unresolved by home medications, or any other acute concerns. Medical Decision Making 36-year-old male presents with anxiety regarding what he describes as left facial numbness approximately 5 PM that progressed to arm and leg weakness on the left then arm weakness on the right, followed by low back pain. States he was evaluated for similar in April of this year and states that he has had difficulty controlling his stool since that time. Review of the records reveal CT obtained without significant finding and similar to lumbar spine MRI from 2017. There are instances of an overriding anxiety and some of his presentations. He states that he is unable to fit in our CT and unwilling to try. Patient given IM analgesic and oral steroid. His exam findings are reassuring today. He is unwilling to undergo imaging. There may be a component of anxiety to his presentation. Following medication the patient is significantly improved. He?has no observable focal deficits with normal rectal tone, presentation does not appear consistent with acute process.? Recommend patient follow-up with ortho spine at the spine center.? A referral has been placed.? HPI General Mode of arrival: ambulatory . Date/Time Provider Initiated Documentation: 08/18/21 19:55 . Limitations to Documentation: no limitations . Information obtained by: patient . History of Present Illness 36 year old M presents to the emergency department with the chief complaint of Transient face numbness, low back pain, described as moderate and similar to prior episodes, and is localized to the head and back. and it has been other (improving). No relieving factors improve symptom(s), No exacerbating factors reported . Patient notes other (months of difficuilty with bowels). Patient did receive the following treatments prior to arrival, none Related Data Home Medications Medication Instructions Recorded Confirmed prednisone 50 mg tablet 50 mg PO DAILY 5 days #5 tabs 08/18/21 Previous Rx's Medication Instructions Recorded prednisone 50 mg tablet 50 mg PO DAILY 5 days #5 tabs 08/18/21 Allergies Allergy/AdvReac Type Severity Reaction Status Date / Time diphenhydramine HCl Allergy Severe Anaphylaxsi Verified 08/18/21 20:13 [From Benadryl] s cefuroxime [From Ceftin] Allergy Mild Unverified 08/18/21 20:15 guaifenesin [From Robitussin] Allergy Unknown Unverified 08/18/21 20:13 ibuprofen [From Advil] Allergy Unknown Verified 08/18/21 20:13 Sulfa (Sulfonamide Allergy Unknown Verified 08/18/21 20:13 Antibiotics) red 40 Allergy Mild Hives Uncoded 08/18/21 20:15 General Stated Complaint: GenMedical KRIS: 3 Review of Systems Narrative: see hpi, 6 systems were reviewed PFSH All Active Problems Right ankle sprain (Acute) Acute bilateral ankle pain (Acute) Muscle strain, shoulder region (Acute) Lumbago (Acute) Chest pain (Acute) Arm pain (Acute) Posterior tibial tendinitis, right leg (Acute) Sprain of right wrist (Acute) [place] teeth extracted (Acute) snf current use of therapeutic drug (Acute) Therapeutic drug monitoring (Acute) Lower back injury (Acute) Injury of neck (Acute) Low back strain (Acute) Snoring (Acute) Drowsy (Acute) Low back pain (Acute) Lumbago with sciatica (Acute) Pain in thoracic spine (Acute) Neck pain (Acute) Joint pain (Acute) Arthropathy (Acute) Gastritis (Acute) Pharyngitis (Acute) Developmental academic disorder (Acute) Nicotine dependence (Acute) Severe obesity (Acute) Obesity (Chronic) Right knee pain (Acute) Laceration of left foot with tendon involvement (Chronic) Status post extensor tendon repair left great toe DOS: 11/29/17 Medical History Chronic back pain Social History Smoking/Tobacco Use Status: Former Tobacco Use Smoking risk assessment performed?: Yes Alcohol Intake: current Alcohol Intake frequency: holidays/special occasions only Drug use: Never Substance use type: does not use Current gender identity: male Do you feel safe at home: Yes Do you feel safe in your relationship?: Yes Exam Narrative Exam Narrative: GEN: awake, alert, oriented 3. Pleasant, well groomed, interactive. HEAD: Normocephalic, atraumatic ENT: Mucous membranes moist, oropharynx unremarkable, External ear exam unremarkable EYES: PERRL, EOMI NECK: Full ROM, no AMY, no menigismus CHEST/RESP: Nontender, clear to auscultation bilateral, no wheeze/rhonchi/rales CARDIOVASCULAR: RRR, no murmur, rub tyrone. 2+ Rad pulse bilateral ABDOMEN: Soft, nontender, no mass. +Bowel sounds Back: Diffusely tender without focality EXT: Full ROM, no edema, no rash. Able to move legs independently swing them on and off the bed, ambulate. Neuro: Grossly normal neurologic exam, conversant, interactive. Cranial nerves II through XII are intact. Sensation is intact throughout including saddle distribution. Good rectal tone. Psych: Speech fluent, thoughts congruent, affect anxious Course Vital Signs Vital signs: Vital Signs Temperature 36.7 C 08/18/21 20:06 Pulse 112 H 08/18/21 20:06 Respiratory Rate 20 08/18/21 20:06 Blood Pressure 147/109 H 08/18/21 20:06 Pulse Oximetry 96 08/18/21 20:06 Temperature 36.7 C 08/18/21 20:06 Temperature Source Tympanic 08/18/21 20:06 Pulse 112 H 08/18/21 20:06 Respiratory Rate 19 08/18/21 20:11 Respiratory Effort 08/18/21 20:11 Respiratory Depth Normal 08/18/21 20:11 Respiratory Pattern Normal 08/18/21 20:11 Blood Pressure 147/109 H 08/18/21 20:06 Blood Pressure Position Supine 08/18/21 20:06 Pulse Oximetry 96 08/18/21 20:06 Oxygen Delivery Method Room Air 08/18/21 20:06 Oxygen Flow Rate 0 08/18/21 20:06 Pain Level 10 08/18/21 20:06
[2021-08-18] MEDS: HYDROmorphone 2 MG/ML VIAL IM (20:35)
[2021-08-18] MEDS: predniSONE 20 MG TAB 60 MG PO (20:35)
[2021-08-18 21:43] VITALS: PULSE 369; RESP 22; O2SAT 96
--- NOTE | 2021-08-19 13:35 | PDOC.ERCMACT ---
- If Service Date Differs Date of service: 08/19/21 Time of Service: 13:35 Care Management Activity Note Allan is seen in the ED for low back pain. At the request of ED provider, GILLIAN coordinates a referral to [facility] to assist Allan in obtaining an appointment for further evaluation and treatment. He has [place] Medicaid for insurance.
== END 2021-08-18 21:43 | disposition home or self-care (01) ==
PROVIDERS: Emergency Provider Emergency Medicine; PCP Physician Assistant
DX: M54.50 Low back pain, unspecified (principal); F41.9 Anxiety disorder, unspecified; R20.2 Paresthesia of skin; R53.1 Weakness; Z87.891 Personal history of nicotine dependence
CPT/HCPCS: 96372; 99284; J7512

== ENCOUNTER 2021-08-24 20:14 | Emergency (ER) | payer MEDICAID, SELFPAY ==
--- OUTSIDE RECORDS SUMMARY | 2021-08-24 20:24 | XMS_ITS | Encounter Summary ---
:1985 Author Organization [facility] [place] [address] Care Team Providers Name Role Phone Percy Blanchard MD Primary Care Provider Encounter Details Date Type Department Care Team Description 05/12/2021 Telephone Pain and Spine Christian duong at [facility] [place] [address] Social History Tobacco Use Types Packs/Day Years Used Date Former Smoker Cigarettes 0.5 Quit: 06/01/19 17 Smokeless Tobacco: Never Used Alcohol Use Standard Drinks/Week Comments Yes 0 (1 standard drink = 0.6 oz pure alcoho l) special occasions Alcohol Habits Answer Date Recorded How often do you have a drink containing alcohol? Not asked How many drinks containing alcohol do you have on a Not aske d typical day when you are drinking? How often do you have six or more drinks on one Not asked occasion? Comment: special occasions 10/22/2014 Sex Assigned at Date Recorded Not on file documented as of this encounter Miscellaneous Notes Telephone Encounter - Kayode Lindsey Jr. 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 MRI is scheduled on 06/03. No follow up required. documented in this encounter Plan of Treatment Not on filedocumented as of this encounter Visit Diagnoses Not on filedocumented in this encounter Care Teams Glassie Relationship Specialty Start Date End Date Percy Blanchard MD PCP - General Family Medicine 09/12/15 documented as of this encounter
--- OUTSIDE RECORDS SUMMARY | 2021-08-24 20:24 | XMS_ITS | Encounter Summary ---
:1985 Author Organization [facility] Address [address] [facility] [place] [address] Care Team Providers Name Role Phone Percy Blanchard MD Primary Care Provider Encounter Details Date Type Department Care Team Description 10/28/2020 Hospital Encounter XRay at [facility] Andrew Felder MD Chronic bilateral low back pain without sciatica; [address] [facility] [address] [facility] Myofascial pain syndrome of lumbar spine; [place], [place] CENTER Pars defect of lumbar spine [id number] PAIN MANAGEMENT [phone] [place] [address] Social History Tobacco Use Types Packs/Day Years [...] on file documented as of this encounter Medications at Time of Discharge Medication Sig Dispensed Refills Start Date End Date lidocaine (Xylocaine) 5 % Apply topically 2 50 g 2 OintmentIndications: times daily. Myofascial pain syndrome of lumbar spine naloxone 4 mg/actuation by Nasal route. 0 020 [place], Non-Aerosol cyclobenzaprine (Flexeril) Take by mouth 3 0 04/0 05/2020 10 mg Tablet times daily as needed. acetaminophen (Tylenol) 325 Take by mouth daily 0 11/26/2019 mg Tablet as needed. albuteroL 90 mcg/actuation Inhale into the 0 06/16 HFA Aerosol Inhaler lungs daily as needed. documented as of this encounter Plan of Treatment Not on filedocumented as of this encounter Procedures Procedure Name Priority Date/Time Associated Diagnosis Comme nts XR LUMBAR SPINE MIN Routine 10/28/2020 1:05 PM Chronic bilater al Results for this 4 VIEW EDT low back pain procedure are in without sciatica the results Myofascial pain section. syndrome of lumbar spine Pars defect of lumbar spine documented in this encounter Results XR Lumbar Spine Min 4 view (10/28/2020 1:05 PM EDT) Anatomical Region Laterality Modality L-spine N/A Digital Radiography Specimen (Source) Anatomical Location Collection Method / Collectio n Time Received Time / Laterality Volume Impressions 10/28/2020 1:50 PM EDT Normal study Thank you for letting us participate in the care of this patient. ??If you are a health care provider and have any questi ons regarding this report, please contact the number below. ??For patients who have questions please contact the health critical care paramedic that requested your imaging first. ? Electronically signed by: Corbin caceres MD, [facility] ([phone]), at 10/28/2020 1:50 PM Narrative 10/28/2020 1:50 PM EDT EXAMINATION: XR LUMBAR SPINE MIN 4 VIEW CLINICAL HISTORY: Patient with history o f pars defect with chronic low back pain Please do A/P, Lateral and Flexion and E xtension Xrays TECHNIQUE: 4 views of the lumbar spine COMPARISON: None FINDINGS: No spondylolisthesis with either flexion or extension. Disc spaces preserved. No arthropathy. Procedure Note Corbin Mancini MD - 10/28/2020Form atting of this note might be different from the original. EXAMINATION: XR LUMBAR SPINE MIN 4 VIEW CLINICAL HISTORY: Patient with history o f pars defect with chronic low back pain Please do A/P, Lateral and Flexion and E xtension Xrays TECHNIQUE: 4 views of the lumbar spine COMPARISON: None FINDINGS: No spondylolisthesis with either flexion or extension. Disc spaces preserved. No arthropathy. IMPRESSION Normal study Thank you for letting us participate in the care of this patient. If you are a health care provider and have any questi ons regarding this report, please contact the number below. For patients w ho have questions please contact the health critical care paramedic that requested your imaging first. Electronically signed by: Corbin caceres MD, [facility] ([phone]), at 10/28/2020 1:50 PM Andrew Felder MD IMG DX ORDERABLES documented in this encounter Visit Diagnoses Diagnosis Chronic bilateral low back pain without sciatica Myofascial pain syndrome of lumbar spine Pars defect of lumbar spine Acquired spondylolisthesis documented in this encounter Care Teams Admissions Consultant Relationship Specialty Start Date End Date Percy Blanchard MD PCP - General Family Medicine 09/12/15 documented as of this encounter
--- OUTSIDE RECORDS SUMMARY | 2021-08-24 20:24 | XMS_ITS | Encounter Summary ---
:1985 Author Organization [facility] [place] [address] Care Team Providers Name Role Phone Percy Blanchard MD Primary Care Provider Reason for Visit Diagnostic Test (Routine) - Authorized Specialty Diagnoses / Procedures Referred By Contact Refer red To Contact Radiology Diagnoses Chronic bilateral low back pain without sciatica Radiculopathy of lumbar region Full incontinence of feces Ming Spicer PA [facility] Rad Mri Procedures MRI Lumbar Spine wo Contrast (Generic) [facility] [place] [address] [place] [address] Referral ID Status Reason Start Expiration Visits Visits Date Date Requested Authorized [id number] Authorized Specialty 04/17/2021 10/18/2022 1 1 Service Requested Encounter Details Date Type Department Care Team Description 06/03/2021 Hospital Encounter MRI at [facility] Boy Oquendo Canceled (D-ARRIVED [facility] MD Lupe LATE/NOT SEEN) [place], [place] CENTER [id number] SPINE CENTER [phone] [place] [address] Social History Tobacco Use Types Packs/Day Years [...] 4 mg/actuation by Nasal route. 0 020 [place], Non-Aerosol cyclobenzaprine (Flexeril) Take by mouth 3 0 /0 05/2020 10 mg Tablet times daily as needed. acetaminophen (Tylenol) 325 Take by mouth daily 0 11/26/2019 mg Tablet as needed. albuteroL 90 mcg/actuation Inhale into the 0 06/16 HFA Aerosol Inhaler lungs daily as needed. documented as of this encounter Progress Notes Allan Mcneal RN - 06/03/2021 3:51 PM EDT MRI PRE-SEDATION ASSESSMENT NOTE NAME: Allan John AGE: 36 y.o. : 1985 [address] [place] [id number] Male [phone] (home) Telephone Information: Percy Blanchard MD None Allergies Allergen Reactions ??? Toradol [Ketorolac] Shortness Of Breath ??? Tylenol [Acetaminophen] Shortness Of Breath ??? [place] Nausea Only ??? Cefuroxime ??? Diphenhydramine Hcl ??? Guaifenesin ??? Ibuprofen ??? [place] ??? Sulfa (Sulfonamide Antibiotics) Date/Time of call: May 29, 2021/9:20 AM/ PREVIOUS MRI SCAN? HEIGHT: 5'9 WEIGHT: 350 lb SCHEDULED SCAN: MRI LUMBAR SPINE WITHOUT CONTRAST [[id number]] Order Questions Answers Clinical information / [place] questions for radiologist: Patient with weight of 158.8 kg, was unable tofit in MRI at prior ED visit at [facility]. Requesting large bore exam Where will study be performed? [facility] Radiology [120] GA rationale: Obesity,Anxiety/Claustrophobia 2 pills okay, 40 minutes, head first preferred, supine SUBJECTIVE: CAN YOU LAY FLAT? AIRWAY/BREATHING ISSUES? DO YOU HAVE ANY INVOLUNTARY MOVEMENTS? (explain) DO YOU HAVE ANY PAIN? DO YOU TAKE PAIN MED ON A DAILY BASIS? ASSESSMENT: PLAN: ( ) You must have a equipment driver present when you check in. This patient has been informed that they require a equipment driver to drive them home after this procedure. In the absence of a equipment driver, IR will not be able to sedate for your scan. Pt verbalized understanding of these instructions during the pre-procedure education via phone. Yes [place] of equipment driver: Phone number: PRIOR SCAN DATE/S SEDATION TYPE SUCCESSFUL 06/03/21 No show Revised 07/12/17 documented in this encounter Plan of Treatment Not on filedocumented as of this encounter Visit Diagnoses Not on filedocumented in this encounter Care Teams Street Commissioner Relationship Specialty Start Date End Date Percy Blanchard MD PCP - General Family Medicine 09/12/15 documented as of this encounter
--- OUTSIDE RECORDS SUMMARY | 2021-08-24 20:24 | XMS_ITS | Encounter Summary ---
:1985 Author Organization [facility] [place] [address] Care Team Providers Name Role Phone Percy Blanchard MD Primary Care Provider Reason for Referral Diagnostic Test (Routine) - Authorized Specialty Diagnoses / Procedures Referred By Contact Refer red To Contact Radiology Diagnoses Chronic bilateral low back pain without sciatica Radiculopathy of lumbar region Full incontinence of feces Ming Spicer PA [facility] Rad Mri Procedures MRI Lumbar Spine wo Contrast (Generic) [facility] [address] [place] [address] Referral ID Status Reason Start Expiration Visits Visits Date Date Requested Authorized [id number] Authorized Specialty 04/17/2021 10/18/2022 1 1 Service Requested Reason for Visit Reason Comments Back Pain Lower back/ bilateral legs Encounter Details Date Type Department Care Team Description 04/17/2021 Office Visit [facility] Erickson Spicer bilateral low back pain without sciatica; at [facility] Lai Radiculopathy of lumbar region; [facility] inco ntinence of feces [facility] [address] [place] [facility] [address] [place] [address] [phone] Social History Tobacco Use Types Packs/Day Years [...] on file documented as of this encounter Last Filed Vital Signs Vital Sign Reading Time Taken Comments Blood Pressure 134/92 04/17/2021 12:05 PM EST Pulse 86 04/17/2021 12:05 PM EST Temperature - - Respiratory Rate - - Oxygen Saturation - - Inhaled Oxygen Concentration - - Weight 158.8 kg (350 lb) 04/17/2021 12:05 PM EST Height 175.3 cm (5' 9) 04/17/2021 12:05 PM EST Body Mass Index 51.69 04/17/2021 12:05 PM EST documented in this encounter Progress Notes Ming Spicer PA - 04/17/2021 12:15 PM EST Images from the original note were not included. [facility] Ming Spicer PA-C Dear Colleagues, I had the pleasure of seeing this patient at the [facility] @ [facility] for evaluation. Brief summary and plan: Diagnosis: 1) Acute back pain radiating into bilateral lower Allan is a 36 y.o. year old male who presents to clinic for evaluation of low back pain radiating into bilateral lower extremities and stool incontinence. He was seen at [facility] and worked up for concerns of cauda equina. CT imaging was obtained but MRI was unable to be performed due to patients size. He is clearly in quite a bit of pain. He was given appropriate medications when discharged from the ED, however he has not picked up these medications. These medications should provide some relief and wewill plan to get an MRI of his lumbar spine for further assessment. I do not see signs of cauda equina on exam and at ED had rectal tone and 60cc of PVR further lessening suspicion of cauda equina. We will have him obtain MRI and will follow up to discuss imaging and next treatment steps. 1) MRI lumbar spine 2) Follow up after imaging to discuss next steps. Chief complaint: Back pain, bilateral leg pain, stool incontinence. HPI: Allan is a 36 y.o. old male who presents to clinic for evaluation of acute onset of low back pain and bilateral leg pain with stool incontinence. A few days ago patient was entering a trailer when acute onset of pain came on suddenly that dropped him to his knees. He had significant pain and weakness after being helped up. On his way to emergency department, loss control of bowels. At ED at [facility] CT were obtained. He was scheduled to have MRI, but was unable to due to size. He was referred here for further evaluation. From the ED he was prescribed methocarbamol, prednisone and oxycodone of which he has not picked up yet. He states the pain is so bad that he feels nauseas. He does have sensation of his bowels, but reports that when he has this sensation is there it is too late. He does not have urinary incontinence.He has to use a scooter to get around due to pain and difficulty walking. Current Outpatient Medications Medication Instructions ??? acetaminophen (Tylenol) 325 mg Tablet Oral, DAILY PRN ??? albuteroL 90 mcg/actuation HFA Aerosol Inhaler Inhalation, DAILY PRN ??? cyclobenzaprine (Flexeril) 10 mg Tablet Oral, 3 TIMES DAILY PRN ??? lidocaine (Xylocaine) 5 % Ointment Topical (Top), 2 TIMES DAILY ??? naloxone 4 mg/actuation Theresa, Non-Aerosol Nasal Review of systems: As above in HPI Physical exam: Resting in moderate discomfort. Using scooter for transportation and unable to self ambulate. He hasdecreased sensation down anterolateral thigh, posterior calf. Motor exam is limited due to pain mediation and effort. Reflexes are 2+ at bilateral patellae and achilles. Imaging: Reviewed imaging of CT of lumbar spine. There is no acute fracture or malalignment. There is reported foraminal stenosis at the L5-S1 level Assessment/plan: Allan is a 36 y.o. year old male who presents to clinic for evaluation of low back pain radiating into bilateral lower extremities and stool incontinence. He was seen at [facility] and worked up for concerns of cauda equina. CT imaging was obtained but MRI was unable to be performed due to patients size. He is clearly in quite a bit of pain. He was given appropriate medications when discharged from the ED, however he has not picked up these medications. These medications should provide some relief and wewill plan to get an MRI of his lumbar spine for further assessment. I do not see signs of cauda equina on exam and at ED had rectal tone and 60cc of PVR further lessening suspicion of cauda equina. We will have him obtain MRI and will follow up to discuss imaging and next treatment steps. 1) MRI lumbar spine 2) Follow up after imaging to discuss next steps. Thank you for letting me participate in this patient's care. Sincerely, Ming Spicer PA-C [facility] documented in this encounter Plan of Treatment Scheduled Orders Name Type Priority Associated Diagnoses Order S chedule MRI Lumbar Spine wo Imaging Routine Chronic bilateral low Expected: 04/17/2021, Contrast (Generic) back pain without Expi res: 10/17/2021 sciatica Radiculopathy of lumbar region Full incontinence of feces documented as of this encounter Visit Diagnoses Diagnosis Chronic bilateral low back pain without sciatica Radiculopathy of lumbar region Thoracic or lumbosacral neuritis or radi culitis, unspecified Full incontinence of feces documented in this encounter Care Teams Construction Quality Control Manager Relationship Specialty Start Date End Date Percy Blanchard MD PCP - General Family Medicine 09/12/15 documented as of this encounter
--- OUTSIDE RECORDS SUMMARY | 2021-08-24 20:24 | XMS_ITS | Clinical Summary ---
:1985 Author Organization [facility] [place] [address] Care Team Providers Name Role Phone Percy Blanchard MD Primary Care Provider Allergies Active Allergy Reactions Severity Noted Date Comments Cefuroxime 08/28/2020 Diphenhydramine Hcl Guaifenesin 08/28/2020 Ibuprofen [place] Red Dye Nausea Only Medium 04/17/2021 Sulfa (Sulfonamide Antibiotics) Ketorolac Shortness Of Breath High 04/17/2021 Acetaminophen Shortness Of Breath High 04/17/2021 Medications Medication Sig Dispensed Refills Start Date End Date Status naloxone 4 mg/actuation by Nasal route. 0 02/26/2019 Active [place], Non-Aerosol cyclobenzaprine Take by mouth 3 0 05/18/2020 Active (Flexeril) 10 mg Tablet times daily as needed. acetaminophen (Tylenol) Take by mouth 0 11/26/2019 Active 325 mg Tablet daily as needed. albuteroL 90 Inhale into the 0 07/15/2019 Active mcg/actuation HFA lungs daily as Aerosol Inhaler needed. lidocaine (Xylocaine) 5 Apply topically 2 50 g 2 10/29/19 21 Active % OintmentIndications: times daily. Myofascial pain syndrome of lumbar spine Additional Information Patient not taking. Reported on 04/17/2021 Encounters Date Type Specialty Care Team Description 08/19/2021 Transcribe Orders Primary Care Kimani Hill, Bulmaro francis ck pain without MD sciatica, unspe cified back pain later ality, unspecified chr onicity 06/03/2021 Hospital Encounter Radiology Boy Oquendo Canc eled (D-ARRIVED MD LATE/NOT SEEN) from Last 3 Months Immunizations Name Administration Dates Next Due Influenza Vaccine, Whole 01/14/2009 Family History Medical History Relation Comments Cancer Maternal Uncle Relation Status Comments Maternal Uncle Social History Tobacco Use Types Packs/Day Years Used Date Former Smoker Cigarettes 0.5 Quit: 06/01/19 17 Smokeless Tobacco: Never Used Tobacco Cessation: Ready to Quit: Yes; C ounseling Given: Yes Alcohol Use Standard Drinks/Week Comments Yes 0 [...] Assigned at Date Recorded Not on file Last Filed Vital Signs Vital Sign Reading Time Taken Comments Blood Pressure 134/92 04/17/2021 12:05 PM EST Pulse 86 04/17/2021 12:05 PM EST Temperature 36.4 ??C (97.5 ??F) 08/29/2016 3:28 PM EDT Respiratory Rate 18 08/29/2016 3:28 PM EDT Oxygen Saturation 99% 10/28/2020 10:55 AM EDT Inhaled Oxygen Concentration - - Weight 158.8 kg (350 lb) 04/17/2021 12:48 PM EST Height 175.3 cm (5' 9) 04/17/2021 12:48 PM EST Body Mass Index 51.69 04/17/2021 12:48 PM EST Plan of Treatment Health Maintenance Due Date Last Done Comments Covid-19 Vaccine (#1) 1991 Pneumococcal Vaccine: At-Risk 5-64yrs (1 - PCV) 1992 HIV screen 2004 Hepatitis C Screening 2004 Lipid Screening 2004 Tdap adult 2005 Tetanus vaccine 2005 Influenza (Flu) vaccine (1 of 1 - Influenza standard 10/15/2021 01/14/2009 series) Insurance Payer Benefit Plan / Subscriber ID Effective Dates Phone Addre ss Type Group [place]ID [id number] 2015-Prese [phone] [address] PRIMARY CARE nt [facility] [id number] Advance Directives Documents on File Type Date Recorded 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
--- OUTSIDE RECORDS SUMMARY | 2021-08-24 20:24 | XMS_ITS | Encounter Summary ---
:1985 Author Organization [facility] [address] Care Team Providers Name Role Phone Percy Blanchard MD Primary Care Provider Encounter Details Date Type Department Care Team Description 04/20/2021 Telephone Pain and Spine Christian duong at [facility] [place] [address] Social History Tobacco Use Types Packs/Day Years [...] Telephone Encounter - Kayode Lindsey Jr. - 04/20/2021 7:55 AM EST MRI ORDER HAS BEEN EMAILED TO RADIOLOGY PART OF THE AGREED UPON PROCESS FOR BATCH SCHEDULING. FORDETAILS SEE BELOW: Type of MRI: Lumbar Spine Date e-mail sent to MRI schedulers: April 20, 2021 Ordering Provider: RUBEN Vasquez, PADavyC Follow up needed by: N/A Visit type: No follow up required documented in this encounter Plan of Treatment Not on filedocumented as of this encounter Visit Diagnoses Not on filedocumented in this encounter Care Teams Sugarcane Research Technician Relationship Specialty Start Date End Date Percy Blanchard MD PCP - General Family Medicine 09/12/15 documented as of this encounter
--- OUTSIDE RECORDS SUMMARY | 2021-08-24 20:24 | XMS_ITS | Encounter Summary ---
:1985 [place] [address] Care Team Providers Name Role Phone Percy Blanchard MD Primary Care Provider Encounter Details Date Type Department Care Team Description 07/15/2020 [facility] [place] [address] Social History Tobacco Use Types Packs/Day Years [...] on file documented as of this encounter Plan of Treatment Not on filedocumented as of this encounter Visit Diagnoses Not on filedocumented in this encounter Care Teams Web Solutions Architect Relationship Specialty Start Date End Date Percy Blanchard MD PCP - General Family Medicine 09/12/15 documented as of this encounter
--- OUTSIDE RECORDS SUMMARY | 2021-08-24 20:24 | XMS_ITS | Encounter Summary ---
:1985 Author Organization [facility] [place] [address] Care Team Providers Name Role Phone Percy Blanchard MD Primary Care Provider Reason for Visit Reason Onset Date Comments Advice Only 04/16/2021 Encounter Details Date Type Department Care Team Description 04/16/2021 Telephone Pain and Spine Cente r at [facility] Chely Jimenez, clerk [place] [address] Social History Tobacco Use Types Packs/Day Years [...] this encounter Miscellaneous Notes Telephone Encounter - Chely Jimenez, RN - 04/16/2021 2:10 PM EST Received page via the TC from [facility] Via the TC from Dr Debbie Schaeffer in FU to a ph consult last evening. See Dr Sainz's phone note from nicholas warren. Dr Schaeffer states pt has been in their ED since 9pm last evening; that she is the hospitalist involved in care at present time. Calling to advise that he was unable to get the MRI as suggested earlier given his size/claustrophobia; that technical artist had asked that he raise arms overhead and that positioning combined with hs size/claustrophobia was not tolerated. Pt reported to Dr Lerma that he had had MRI here previously. Upon review of chart, informed Dr Quiroz that I only saw reference to heat MRI a number of yrs ago. Requested Dr Quiroz provide me with a more detailed clinical report; that I could share with attending on tigist to determine appropriate next steps. Caller reports: Pt is 350 lbs, BMI 51, Medical hx includes asthma, gerd,highly claustrophobic, otherwise pretty unremarkable. WBC 13; other labs WNL VSS, tachy Pt reported to ED staff that he was climbing 2-3 steps into a trailer and had immediate onset of severe acute midline low back pain and bilat posterior leg pain to his toes; Back > leg. Pt reports along with acute back and leg pain, he lost sensation in both his legs and has since experienced rectal incontinence- decreased sensation that he needs to move his bowels and no control Pt ambulated int the ED with assistance On exam; Dr Schaeffer reports He is continent of urine; PVR only 60cc; denies saddle anesthesia, Positive rectal tone X2, intact sensation in testicles; Intact sensation to lower extremities on exam. Reflexes symmetrical but decreased; able to lift legs off the exam table. Pt has not a been asked to ambulate since arriving in ED Reviewed above report and available CT with Dr Guerra. Call returned to Dr Schaeffer advising given pt is neurologically intact; there is no concern for caudaequina so urgent emergent MRI is not needed. Offered to have pt scheduled with our surgical PA as anoutpt, explaining that that appt can be arranged w or without MRI., I explained that we would not beable to order the MRI without evaluating pt; and determining it was medically indicated. Advised provider if based on their exam, or pts presentation since last evening, if she wanted to jump start that process and order an external MRI with sedation, making certain to note the pt's size, in the eventlarge bore was needed, to be performed at [facility] that could jump start the imaging process. Informed Dr Schaeffer, that Dr Guerra is suggesting sx mgmt and PT to assess ambulation status and provide ambulatory aids as needed. If sxs change prior to appt we can re-evaluate plan. Requested schedulers try to get [facility] ED notes for Ming's reference. documented in this encounter Plan of Treatment Not on filedocumented as of this encounter Visit Diagnoses Not on filedocumented in this encounter Care Teams Slicing Machine Operator Relationship Specialty Start Date End Date Percy Blanchard MD PCP - General Family Medicine 09/12/15 documented as of this encounter
--- OUTSIDE RECORDS SUMMARY | 2021-08-24 20:24 | XMS_ITS | Encounter Summary ---
:1985 [place] [address] Care Team Providers Name Role Phone Percy Blanchard MD Primary Care Provider Encounter Details Date Type Department Care Team Description 04/16/2021 Ancillary [facility] [address] [address] ORTHOPAEDIC SURGERY [phone] [place] [id number] (Wo rk) Social History Tobacco Use Types Packs/Day Years [...] Name Priority Date/Time Associated Diagnosis Comme nts FILM LIBRARY Routine 04/15/2021 11:54 PM Results for this STORAGE ONLY CT EST procedure ar e in SPINE the results section. documented in this encounter Results Film Library- Storage Only CT Spine (04/15/2021 11:54 PM EST) Specimen (Source) Anatomical Location Collection Method / Collectio n Time Received Time / Laterality Volume Narrative RAD - 04/15/2021 11:54 PM EST This exam is auto-finalizing. It's purpo se is for storage only. Les Dominguez MD IMG FILM LIBRARY ORDERABLES Performing Organization Address City/State/ZIP Code Phon e Number [place], [place] documented in this encounter Visit Diagnoses Not on filedocumented in this encounter Care Teams Marketing Segment Manager Relationship Specialty Start Date End Date Percy Blanchard MD PCP - General Family Medicine 09/12/15 documented as of this encounter
--- OUTSIDE RECORDS SUMMARY | 2021-08-24 20:24 | XMS_ITS | Encounter Summary ---
:1985 [place] [address] Care Team Providers Name Role Phone Percy Blanchard MD Primary Care Provider Encounter Details Date Type Department Care Team Description 04/16/2021 [facility]illary [facility] [place] [address] [address] ORTHOPAEDIC SURGERY [phone] [place] [address] (Wo rk) Social History Tobacco Use Types [...] Diagnosis Comme nts FILM LIBRARY Routine 04/15/2021 11:53 PM Results for this STORAGE ONLY CT EST procedure ar e in PELVIS the results section. documented in this encounter Results Film Library- Storage Only CT Pelvis (04/15/2021 11:53 PM EST) Specimen (Source) Anatomical Location Collection Method / Collectio n Time Received Time / Laterality Volume Narrative RAD - 04/15/2021 11:53 PM EST This exam is auto-finalizing. It's purpo se is for storage only. Les Dominguez MD IMG FILM LIBRARY ORDERABLES Performing Organization Address City/State/ZIP Code Phon e Number [place], [place] documented in this encounter Visit Diagnoses Not on filedocumented in this encounter Care Teams Bore Miner Operator Relationship Specialty Start Date End Date Percy Blanchard MD PCP - General Family Medicine 09/12/15 documented as of this encounter
--- OUTSIDE RECORDS SUMMARY | 2021-08-24 20:24 | XMS_ITS | Encounter Summary ---
:1985 Author Organization [facility] [place] [address] Care Team Providers Name Role Phone Percy Blanchard MD Primary Care Provider Reason for Referral Consultation (Routine) - Authorized Specialty Diagnoses / Procedures Referred By Contact Refer red To Contact Pain and Spine Center Diagnoses Low back pain without sciatica, unspecified back pain laterality, unspecified chronicity Kimani Hill MD [facility] And [address] [place] [address] Spine [facility] [address] [place] [address] Phone: Fax: Referral ID Status Reason Start Expiration Visits Visits Date Date Requested Authorized [id number] Authorized Evaluate and 08/19/2021 08/19/2022 3 3 Treat Encounter Details Date Type Department Care Team Description 08/19/2021 Transcribe Orders eDH Incoming Kimani Hill Low ba ck pain Referrals MD without sciatica, [address] [place] [address] unspecified back [place], [place] [address] unspecified [phone] chronicity (Work) Social History Tobacco Use Types Packs/Day Years [...] as of this encounter Plan of Treatment Scheduled Referrals Name Type Priority Associated Diagnoses Order S damaso Referral to Pain Outpatient Referral Routine Low back pain yulia sutton Ordered: and Spine Center sciatica, unspecified (Internal only) back pain laterality, unspecified chronicity documented as of this encounter Visit Diagnoses Diagnosis Low back pain without sciatica, unspecif ied back pain laterality, unspecified chronicity documented in this encounter Care Teams Tool Dresser Relationship Specialty Start Date End Date Percy Blanchard MD PCP - General Family Medicine 09/12/15 documented as of this encounter
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
--- OUTSIDE RECORDS SUMMARY | 2021-08-24 20:25 | XMS_ITS | Encounter Summary ---
:1985 Author Organization [facility] [place] [address] Care Team Providers Name Role Phone Noel Burt Primary Care Provider Reason for Referral Physical Therapy (Routine) - Closed Specialty Diagnoses / Procedures Referred By Contact Refer red To Contact Physical Therapy Diagnoses Right knee pain Ney Plata PA [facility] Pt Rehab [facility] [place] [address] [place] [address] Phone: Fax: Referral ID Status Reason Start Date Expiration Date Visits V isits Requested Authorized [id number] Closed Evaluate and 10/22/2014 10/22/2015 12 12 Treat Reason for Visit Reason Comments Right Knee Pain Right Leg Pain R quad pain Encounter Details Date Type Department Care Team Description 10/22/2014 Office Visit Orthopaedics at [facility] Ney Plata Right knee pain [facility] CATE Andrade (Primary Dx) [place] [address] ORTHOPAEDIC SURGERY [phone] [place], [place] [address] (Wo rk) Social History Tobacco Use Types Packs/Day Years Used Date Current Every Day Smoker Cigarettes 0.5 Smokeless Tobacco: Never Used Tobacco Cessation: Ready [...] Sign Reading Time Taken Comments Blood Pressure 127/69 10/22/2014 9:19 AM EDT Pulse 79 10/22/2014 9:19 AM EDT Temperature - - Respiratory Rate - - Oxygen Saturation - - Inhaled Oxygen Concentration - - Weight 142 kg (313 lb) 10/22/2014 9:19 AM EDT Height 175.3 cm (5' 9) 10/22/2014 9:19 AM EDT verbal Body Mass Index 46.22 10/22/2014 9:19 AM EDT documented in this encounter Progress Notes Ney Plata PA - 10/22/2014 9:54 AM EDT DATE OF VISIT: 10/22/2014. CHIEF COMPLAINT: Right knee pain. HISTORY OF PRESENT ILLNESS: A 29-year-old male presents today for evaluation of his right knee pain and dysfunction. He has had one to two years of symptoms from the right knee without injury or new activities to precede the onset of symptoms. He feels predominantly anteromedial knee pain. In addition to the pain, he feels like it will give way especially with activity. He finds stairs to be problematic. Squats and transitions are also very painful. He does notice intermittent swelling to the knee that is worse late in the day and in the evening, but is resolved by morning. He has no pain at rest or sitting, though prolonged driving is problematic. 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 He has been using nabumetone and also oxycodone. He has also been doing some independent stretching activities. Aside from the knee, his health is stable. He also has ongoing low back pain. He has never had this evaluated. He denies numbness or tingling to his leg. He does have some tightness to the quad radiating to his hip. PHYSICAL EXAMINATION: Ambulatory without antalgia or assistive devices. Right knee shows no deformity. There is no effusion today. He does have apprehension with patellar mobilization. There is pain with patellar grind. The knee is stable to varus and valgus stress. Negative drawer. Negative Jennifer. Flexion is to 115 degrees with calves without impingement. Hip range of motion is well tolerated without increased pain or apprehension. There is diffuse tenderness throughout the patellofemoral compartment and patellar tendon. Peripheral pulses are intact and equal. IMAGING: X-rays were reviewed today showing well-maintained medial and lateral joint spaces. No evidence for loose body or chondrocalcinosis. On the skyline view, there is increased lateral tilt and lateral tracking of the right patella compared to the left. ASSESSMENT: Right knee patellofemoral dysfunction. PLAN: We discussed his knee. We reviewed his symptoms and correlated his x-rays. My sense is that dysfunction of the patellofemoral compartment is the source of his pain and sense of instability. We discussed stabilization techniques. In the short term, we will use a patella stabilizing brace. I gave him a referral for physical therapy to discuss focused stretching and strengthening techniques. We did discuss the utility of cortisone injection, though I think at this point I would hold off. He will continue his nabumetone and oxycodone under the guidance of his PCP. We will plan to see him back in the clinic again in four to six weeks or sooner as needed. documented in this encounter Plan of Treatment Scheduled Referrals Name Type Priority Associated Diagnoses Order S [facility] Referral to Outpatient Referral Routine Right knee pain Order ed: Physical Therapy 10/22/2014 documented as of this encounter Visit Diagnoses Diagnosis Right knee pain - Primary Pain in joint, lower leg documented in this encounter Care Teams Grid Operator Relationship Specialty Start Date End Date Noel Burt PA PCP - General 04/16/14 09/11/[address] [place] [address] [place] [phone] documented as of this encounter
--- OUTSIDE RECORDS SUMMARY | 2021-08-24 20:25 | XMS_ITS | Encounter Summary ---
:1985 Author Organization [facility] [place] [address] Care Team Providers Name Role Phone Noel Burt Primary Care Provider Encounter Details Date Type Department Care Team Description 09/02/2014 Orders Only Orthopaedics at [facility] Corbin Garcia, Right knee pain [facility] [place] [address] [facility] [phone] ORTHOPAEDIC SURG [place], [place] [address] (Wo rk) Social History Tobacco Use Types Packs/Day Years Used Date Current Every Day Smoker Sex Assigned at Date Recorded Not on file documented as of this encounter Plan of Treatment Not on filedocumented as of this encounter Results XR Sports Team Pts under 25 AP LAT [place] (10/22/2014 8:56 AM EDT) Anatomical Region Laterality Modality Knee N/A Radiographic Imaging Specimen (Source) Anatomical Collection Method Collection Time Re ceived Time Location / / Volume Laterality 10/22/2014 8:56 AM EDT Impressions 10/22/2014 9:53 AM EDT IMPRESSION: 1. No acute fracture, dislocation, or tess int effusion identified. 2. Preservation of the knee joint spaces . Narrative 10/22/2014 9:53 AM EDT EXAMINATION: SPORTS TEAM PTS UNDER 25 AP LAT SKYLINE SCHUSS/RIGHT CLINICAL HISTORY: right knee pain severe TECHNIQUE: 4 views right knee COMPARISON: 04/16/2014 FINDINGS: No acute fracture or dislocation is iden tified. The joint spaces of both knees appear to be maintained. No osteochondra l lesions identified. No appreciable right knee joint effusion. No patellar t ilt or subluxation detected on the sunrise view. Procedure Note Andrew Martínez MD - 10/22/2014Formatti ng of this note might be different from the original. EXAMINATION: SPORTS TEAM PTS UNDER 25 AP LAT SKYLINE SCHUSS/RIGHT CLINICAL HISTORY: right knee pain severe TECHNIQUE: 4 views right knee COMPARISON: 04/16/2014 FINDINGS: No acute fracture or dislocation is iden tified. The joint spaces of both knees appear to be maintained. No osteochondra l lesions identified. No appreciable right knee joint effusion. No patellar t ilt or subluxation detected on the sunrise view. IMPRESSION IMPRESSION: 1. No acute fracture, dislocation, or tess int effusion identified. 2. Preservation of the knee joint spaces . Corbin Garcia MD IMG DX ORDERABLES documented in this encounter Visit Diagnoses Diagnosis Right knee pain Pain in joint, lower leg Right knee pain Pain in joint, lower leg documented in this encounter Care Teams Electronic System Engineer Relationship Specialty Start Date End Date Noel Burt PA PCP - General 04/16/14 09/11/[address] [place] [address] [place] [phone] documented as of this encounter
--- OUTSIDE RECORDS SUMMARY | 2021-08-24 20:25 | XMS_ITS | Encounter Summary ---
:1985 Author Organization [facility] [address] [place] [address] Care Team Providers Name Role Phone Percy Blanchard MD Primary Care Provider Reason for Visit Reason Comments Chest Pain Encounter Details Date Type Department Care Team Description 09/12/2015 - Emergency Emergency Department Paul Marquez, est pain, 09/13/2015 Elizabeth aJin MD unspecified type [place] [address] [phone] [place], [place] (Work) [phone] Social History Tobacco Use Types Packs/Day Years Used Date Current Every Day Smoker Cigarettes 0.5 Smokeless Tobacco: Never Used Alcohol Use Standard [...] Sign Reading Time Taken Comments Blood Pressure 123/91 09/13/2015 2:30 AM EDT Pulse 75 09/13/2015 2:15 AM EDT Temperature 37 ??C (98.6 ??F) 09/13/2015 3:12 AM EDT Respiratory Rate 17 09/13/2015 2:15 AM EDT Oxygen Saturation 99% 09/13/2015 2:15 AM EDT Inhaled Oxygen Concentration - - Weight - - Height - - Body Mass Index - - documented in this encounter Discharge Instructions Discharge InstructionsPaul Marquez MD - 09/13/2015 3:06 AM EDT Images from the original note were not included. [facility] Chest Pain: After Your Visit Your Care Instructions There are many things that can cause chest pain. Some are not serious and will get better on their own in a few days. But some kinds of chest pain need more testing and treatment. Your doctor may have recommended a follow-up visit in the next 8 to 12 hours. If you are not getting better, you may need more tests or treatment. Even though your doctor has released you, you still need to watch for any problems. The doctor carefully checked you, but sometimes problems can develop later. If you have new symptoms or if your symptoms do not get better, get medical care right away. If you have worse or different chest pain or pressure that lasts more than 5 minutes or you passed out (lost consciousness), call 911 or seek other emergency help right away. A medical visit is only one step in your treatment. Even if you feel better, you still need to do what your doctor recommends, such as going to all suggested follow-up appointments and taking medicinesexactly as directed. This will help you recover and help prevent future problems. How can you care for yourself at home? ?? Rest until you feel better. ?? Take your medicine exactly as prescribed. Call your doctor if you think you are having a problem with your medicine. ?? Do not drive after taking a prescription pain medicine. When should you call for help? Call 911 if: ?? You passed out (lost consciousness). ?? You have severe difficulty breathing. ?? You have symptoms of a heart attack. These may include: ?? Chest pain or pressure, or a strange feeling in your chest. ?? Sweating. ?? Shortness of breath. ?? Nausea or vomiting. ?? Pain, pressure, or a strange feeling in your back, neck, jaw, or upper belly or in one or both shoulders or arms. ?? Lightheadedness or sudden weakness. ?? A fast or irregular heartbeat. After you call 911, the railroad crane operator may tell you to chew 1 adult-strength or 2 to 4 low-dose aspirin. Wait for an ambulance. Do not try to drive yourself. Call your doctor today if: ?? You have any trouble breathing. ?? Your chest pain gets worse. ?? You are dizzy or lightheaded, or you feel like you may faint. ?? You are not getting better as expected. ?? You are having new or different chest pain. Where can you learn more? Visit our health information library at [email or web address] You can also view health information on [employer], your personal patient account. Log in or sign up today. Enter A120 in the search box to learn more about Chest Pain: After Your Visit. ?? [id number] [employer]. Care instructions adapted under license by [facility]. This care instruction is for use with your licensed healthcare professional. If you have questionsabout a medical condition or this instruction, always ask your healthcare professional. [employer] disclaims any warranty or liability for your use of this information. Content Version: 10.4.633546; Current as of: July 18, 2013 Try taking the prilosec once daily 30 minutes before breakfast. Call your regular doctor on Tuesday to schedule follow up in the next couple weeks. If the pain is getting worse or you have other new concerning symptoms return to the ER. AttachmentsThe following attachments cannot be sent through Care Everywhere.GERD (BAHAMIAN)documented in this encounter Medications at Time of Discharge Medication Sig Dispensed Refills Start Date End Date omeprazole (PRILOSEC) Take 1 capsule by mouth 30 capsule 0 0 09/13/2015 09/12/2016 20 mg Capsule, daily. Delayed Release(E.C.) oxyCODONE 10 mg Take 10 mg by mouth 0 10/28/2020 Tablet every 4 hours as needed. UNABLE TO FIND Med Name: kamla, 0 0 07/15/2020 anti inflammatory documented as of this encounter ED Notes Paul Marquez MD - 09/13/2015 10:48 PM EDT Chief Complaint Patient presents with ??? Chest Pain HPI Comments: 30 yo male comes in c/o chest pain for a few days. Intermittent, several times a day. Lasts for 30 miutes to a couple hours. Consistently after eating, and often wakes up late at night with the pain. Passes on it's own. Left sided with some radiation to shoulder. No back pain. No worse with walking or exertion. No vomiting. No fevers. Though the medical student reports hemoptysis the patient mentioned nothing about this to me. Moderate in intensity, pressure like in quality. The history is provided by the patient. Allergies Allergen Reactions ??? Diphenhydramine Hcl ??? Ibuprofen ??? [place] Review of Systems Constitutional: Negative. HENT: Negative. Eyes: Negative. Respiratory: Negative. Cardiovascular: Negative. Gastrointestinal: Negative for nausea and vomiting. Endocrine: Negative. Genitourinary: Negative. Musculoskeletal: Negative. Skin: Negative. No diaphoresis Neurological: Negative. Hematological: Negative. Psychiatric/Behavioral: Negative. All other systems reviewed and are negative. History reviewed. No pertinent past medical history. Social History Social History ??? Marital status: Single Spouse name: N/A ??? Number of children: N/A ??? Years of education: N/A Social History Main Topics ??? Smoking status: Current Every Day Smoker Packs/day: 0.50 Types: Cigarettes ??? Smokeless tobacco: Never Used ??? Alcohol use Yes Comment: special occasions ??? Drug use: No ??? Sexual activity: Not Asked Other Topics Concern ??? None Social History Narrative Family History Problem Relation Age of Onset ??? Cancer Maternal Uncle Physical Exam Constitutional: He is oriented to person, place, and time. He appears well- developed and well-nourished. obese HENT: Head: Normocephalic and atraumatic. Eyes: Conjunctivae are normal. Pupils are equal, round, and reactive to light. Neck: Normal range of motion. Neck supple. Cardiovascular: Normal rate and regular rhythm. Pulmonary/Chest: Effort normal and breath sounds normal. Abdominal: Soft. He exhibits no distension. There is no tenderness. Musculoskeletal: Normal range of motion. He exhibits no tenderness. Neurological: He is alert and oriented to person, place, and time. Skin: Skin is warm and dry. Psychiatric: He has a normal mood and affect. His behavior is normal. Nursing note and vitals reviewed. Allan John #[id number] ??(30 y.o. M) ED15 ? Lab Results ? Basic Metabolic Panel (non-fasting) (Final result)?Abnormal Component (Lab Inquiry) ? Collection Time Result Time GLUCOSE BUN CREATININE NA K ?? 09/13/15 01:00:00 09/13/15 02:16:56 94 Diabetes: >=200 mg/dL plus symptoms 13 Please note that the pediatric reference intervals supplied above were not validated at [facility]. Results from pediatric patients should be interpreted in conjunction to the patient's age, height and muscle mass. ' data-bubble=IP_HOVER_BUBBLE_SERVICE>1.05 Please note that the p... 140 Please note: Patients with WBC >100,000 may have falsely elevated Potassium levels. For accurate Potassium quantification in these patients send serum separator tube (gold top) for subsequent determinations. Contact the Clinical Chemistry Laboratory if there are any questions. ' data-bubble=IP_HOVER_BUBBLE_SERVICE>3.8 Please note: ??Patients... ? Collection Time Result Time CL CO2 ANION GAP CALCIUM Estimated GFR ?? 09/13/15 01:00:00 09/13/15 02:16:56 100 23 17 (H) 9.1 This estimated GFR (eGFR) value was calculated using the MDRD equation which has been validated on patients between the ages of 18 and 70. The MDRD should not be used to assess kidney function in patients < 18 years of age or in patients with extremes of body mass, or in patients with acute kidney failure. This value should be multiplied by 1.2 for patients. For further information please copy and paste the following links into your internet browser. [email or web address]/DHnkdep [email or web address].Adyen/DHMCnkf ' data-bubble=IP_HOVER_BUBBLE_SERVICE>>60 This estimated GFR (eG... ? CBC (with Diff) (Final result) Result time: 09/13/15 01:44:26 ? Cardiac Enzymes (Final result) Component (Lab Inquiry) ? Collection Time Result Time Troponin-T CK, Total ?? 09/13/15 01:00:00 09/13/15 02:16:53 0.03 ng/mL: Represents the 99th percentile upper reference limit for normals. >0.03 ng/mL: Elevated cardiac troponin T level indicative of myocardial damage. Diagnosis of acute, evolving or recent ID requires a typical rise and gradual fall of cTnT with at least ONE of the following: a) Ischemic symptoms b) Development of pathologic Q waves on the ECG c) ECG changes indicative of eschemia (S-T segment elevation/depression) d) Coronary artery intervention Serial bloods should be obtained for testing on admission, at 6 to 9 hrs and again at 12 to 24 hrs if earlier samples are negative and the clinical index of suspicion is high. Reference: [Myocardial infarction redefined--a consensus document of the Joint Society of Cardiology/[place] College of Cardiology Committee for the redefinition of myocardial infarction. Journal of the [place] College of Cardiology 2000; 36: 959-969] ' data-bubble=IP_HOVER_BUBBLE_SERVICE><0.03 0.03 ng/mL: Represents... 101 ? Hemogram (Final result)?Abnormal Component (Lab Inquiry) ? Collection Time Result Time WBC RBC HGB HCT MCV ?? 09/13/15 01:00:00 09/13/15 01:51:05 12.3 (H) 5.08 14.8 44.1 86.8 ? Collection Time Result Time MCH MCHC Platelets RDWSD RDWCV ?? 09/13/15 01:00:00 09/13/15 01:51:05 29.1 33.6 287 39.1 12.3 ? Collection Time Result Time MPV nRBC % Auto nRBC Abs Auto ?? 09/13/15 01:00:00 09/13/15 01:51:05 9.5 0.0 0.000 ? Differential, Automated (Final result)?Abnormal Component (Lab Inquiry) ? Collection Time Result Time NEUTRO PCT NEUTRO ABS LYMPHO PCT Lymphocytes Abs MONO PCT ?? 09/13/15 01:00:00 09/13/15 01:51:06 57.4 7.05 (H) 34.5 4.2 (H) 5.4 ? Collection Time Result Time Monocyte Abs Eosinophils % Eosinophils Abs BASOS PCT Basophils Abs ?? 09/13/15 01:00:00 09/13/15 01:51:06 0.7 2.0 0.2 0.4 0.0 ? Collection Time Result Time Immature Gran % Cece Gran Abs ?? 09/13/15 01:00:00 09/13/15 01:51:06 Immature granulocytes(IG's)percentage and absolute count will include metamyelocytes, myelocytes, and promyelocytes. Blood smears from CBCs yielding IG's will be scanned manually for concordance. If this scan disagrees with the automated IG or if promyelocytes are noted, a manual differential will be performed. ' data-bubble=IP_HOVER_BUBBLE_SERVICE>0.30 Immature granulocytes(... 0.04 ? Blue Tube HOLD (Final result) Component (Lab Inquiry) ? Collection Time Result Time Blue Hold ?? 09/13/15 01:00:00 09/13/15 01:45:04 Sample in lab. ? Gold Tube HOLD (Final result) Component (Lab Inquiry) ? Collection Time Result Time Gold Hold ?? 09/13/15 01:00:00 09/13/15 01:45:05 Sample in lab. ? Imaging Results ? XR Chest PA & Lateral (Generic) (Final result) Result time: 09/13/15 02:12:41 ?? Final result by Department, Radiology (09/13/15 02:12:41) ?? Impression: ?? No acute cardiopulmonary process seen. I have personally reviewed the image(s) and the residents interpretation and agree with the findings, Neftaly Stacy at 09/13/2015 2:07 AM ?? Narrative: ?? EXAMINATION: XR CHEST ROUTINE PA AND LATERAL CLINICAL HISTORY: chest pain, hemoptysis TECHNIQUE: PA and lateral standing upright chest radiographs COMPARISON: Chest radiographs April 16, 2009 FINDINGS: Lungs are symmetrically expanded appear clear. There is no pneumothorax or pleural effusion identified. Cardiac silhouette, esther and pulmonary vasculature are within normal limits. No interval osseous abnormality seen. ? ECG Results ? EKG 12 Lead (Final result) Component (Lab Inquiry) ? Collection Time Result Time theo mcintosh printerval qrsduratio qtinterval ?? 09/12/15 23:11:35 09/13/15 10:31:56 91 91 146 96 346 ? Collection Time Result Time qtccalc paxcaitie racherrys taxis DIAGLINE ?? 09/12/15 23:11:35 09/13/15 10:31:56 425 31 27 17 Normal sinus rhythm Normal ECG No previous ECGs available Confirmed by MD Morales Douglas ([id number]) on 09/13/2015 10:31:53 AM ? Procedures MDM Number of Diagnoses or Management Options Chest pain, unspecified type: Diagnosis management comments: Young male with neg ecg. CP for several days intermittent. Seems consistently related to food intake so seems likely GI. Trop negative. PERC neg. Pulses normal. Cxr normal. OK for d/c with f/u PCP for improvement. Started on PPI Dx: Chest pain Cond: Stable Dispo: home Paul Marquez MD 09/17/15 [id number] Paul Marquez MD 09/17/15 [id number] Eric Massey NRP - 09/13/2015 12:40 AM EDT at the bedside documented in this encounter Miscellaneous Notes Med Student Progress Note - Ming Nieves - 09/13/2015 12:29 AM EDT CC: Chest Pain HPI: Pt is a 30 y/o male complaining of chest pain for the last 3 days. He states there is no pain when he wakes up, but once he eats something the pain starts 10-15 minutes later and remains constant throughout the day. He describes it as pressure around his heart. He states the pain radiates to his arms some times, usually his right. He also has sob associated with the pain. He has a decreased appetite from nausea, but denies vomiting. He also has episodes of excessive sweating. He also reports coughing up about a shot of blood every morning for the past 3 months. After it clears, there is no more during the day. Medical Hx - Chronic back pain Surgical Hx - none Social Hx - Smokes 1 ppd x 12 years, drinks occasionally, smokes marijuana for back pain Family Hx - Father had ID at 30, mother of cancer Meds - Oxycodone 10 mg TID Allergies - Benadryl, ibuprofen, lithium. Unknown reactions VS - BP 115/87, HR 85, Resp 15, Temp 36.8, O2 98% PE - Gen: Pt is seated comfortably in bed, NAD Cardiac - RRR no murmur, distant heart sounds due to habitus Resp - Full and clear b/l Abd - obese, soft, nontender. BS present MSK - diffuse tenderness to palpation on anterior chest. Worse around sternum. Assessment - Ddx: 1) Costochondritis. Sharp pain to palpation around costochondral joints, w/ negative ekg makesthis likely. 2) GERD. Pain begins with food, makes a GI pathology likely. This could be a combination of GERD and costochondritis as symptoms do not fit into any one pathology. 3) Pneumonia. Pt has had no signs or symptoms of infection, however sob and hemoptysis is concerning. 4) NSTEMI. Pt has been having pain atypical for ID. Given lifestyle and family hx, this is something to consider. 5) Lung Cancer. This is unlikely given the patient's age. Although his hx of smoking and symptoms are concerning. ED Triage - Vijay Ramon NRP - 09/12/2015 11:13 PM EDT Patient presents today with a 3 day history of CP that got worse today after eating. The patient hasno cardiac Hx. Says the pain goes to his left arm, and increased dramatically when he moves his arms. Skin WPD. NAD. Breathing normal. documented in this encounter Plan of Treatment Not on filedocumented as of this encounter Procedures Procedure Name Priority Date/Time Associated Diagnosis Comme nts XR CHEST PA AND STAT 09/13/2015 1:33 AM Result s for this LATERAL EDT procedure are i n the results section. HEMOGRAM STAT 09/13/2015 1:00 AM Results f or this EDT procedure are i n the results section. DIFFERENTIAL, STAT 09/13/2015 1:00 AM Results for this AUTOMATED EDT procedure are i n the results section. GOLD TUBE HOLD STAT 09/13/2015 1:00 AM Results for this EDT procedure are i n the results section. BLUE TUBE HOLD STAT 09/13/2015 1:00 AM Results for this EDT procedure are i n the results section. CARDIAC ENZYMES STAT 09/13/2015 1:00 AM Result s for this ([facility]) EDT procedure are i n the results section. CBC (WITH DIFF) STAT 09/13/2015 1:00 AM EDT BASIC METABOLIC STAT 09/13/2015 1:00 AM Result s for this PANEL (NON-FASTING) EDT procedur e are in the results section. EKG 12-LEAD STAT 09/12/2015 11:11 PM Results for this EDT procedure are i n the results section. documented in this encounter Results XR Chest PA & Lateral (Generic) (09/13/2015 1:33 AM EDT) Anatomical Region Laterality Modality Chest N/A Digital Radiography Specimen (Source) Anatomical Location Collection Method / Collectio n Time Received Time / Laterality Volume Impressions 09/13/2015 2:07 AM EDT No acute cardiopulmonary process seen. I have personally reviewed the image(s) and the residents interpretation and agree with the findings, Neftaly Stacy at 09/13/2015 2:07 AM Narrative 09/13/2015 2:07 AM EDT EXAMINATION: XR CHEST ROUTINE PA AND LATERAL CLINICAL HISTORY: chest pain, hemoptysis TECHNIQUE: PA and lateral standing uprig ht chest radiographs COMPARISON: Chest radiographs April 16 FINDINGS: Lungs are symmetrically expanded appear clear. There is no pneumothorax or pleural effusion identified. Cardiac quinn houette, esther and pulmonary vasculature are within normal limits. No interval os seous abnormality seen. Procedure Note Neftaly Stacy MD - 09/13/2015 EXAMINATION: XR CHEST ROUTINE PA AND LAT ERAL CLINICAL HISTORY: chest pain, hemoptysis TECHNIQUE: PA and lateral standing uprig ht chest radiographs COMPARISON: Chest radiographs April 16 FINDINGS: Lungs are symmetrically expanded appear clear. There is no pneumothorax or pleural effusion identified. Cardiac quinn houette, esther and pulmonary vasculature are within normal limits. No interval os seous abnormality seen. IMPRESSION No acute cardiopulmonary process seen. I have personally reviewed the image(s) and the residents interpretation and agree with the findings, Neftaly Stacy at 09/13/2015 2:07 AM Paul Marquez MD IMG DX ORDERABLES Gold Tube HOLD (09/13/2015 1:00 AM EDT) athologist Signature Gold Hold Sample in [facility] LABORATORY Specimen Anatomical Collection Method Collection Time Receive d Time (Source) Location / / Volume Laterality Blood specimen Venous Draw / 09/13/2015 1:00 AM 2015 1:44 (specimen) Unknown EDT AM EDT Paul Marquez MD CHEMISTRY ORDERABLES Performing Organization Address City/[facility]/[place] [address] Blue Tube HOLD (09/13/2015 1:00 AM EDT) athologist Signature Blue Hold Sample in [facility] LABORATORY Specimen Anatomical Collection Method Collection Time Receive d Time (Source) Location / / Volume Laterality Blood specimen Venous Draw / 09/13/2015 1:00 AM 2015 1:44 (specimen) Unknown EDT AM EDT Paul Marquez MD HEMATOLOGY ORDERABLES Performing Organization Address City/[facility]/[place] [address] (ABNORMAL) Differential, Automated (09/13/2015 1:00 AM EDT) [facility] gist Method Time Signature Neutrophils % 57.4 % [facility] Neutr Abs (ANC) 7.05 (H) 1.50 - [facility] 6.30 [facility] x10(3)/[facility] L LABORATORY Lymphocytes % 34.5 % [facility] LAB[facility] Lymphocytes Abs 4.2 (H) 1.0 - 3.[address] [facility] x10(3)/[facility] LABORATORY Monocytes % 5.4 % [facility] LABOR[facility]ORY Monocyte Abs 0.7 0.2 - 1.[address] [facility] x10(3)/[facility] LABORATORY Eosinophils % 2.0 % [facility] LAB[facility] Eosinophils Abs 0.2 0.0 - 0.[address] [facility] x10(3)/[facility] LABORATORY Basophils % 0.4 % [facility] LAB[facility] Basophils Abs 0.0 0.0 - 0.[address] [facility] x10(3)/[facility] LABORATORY Immature Gran % 0.30 % [facility] Comment: Immature granulocytes(IG's)percentage an d absolute count will include metamyelocytes, myelocytes, and promyelo cytes. Blood smears from CBCs yielding IG's will be scanned manually for concor dance. If this scan disagrees with the automated IG or if promyelocytes are not ed, a manual differential will be performed. Cece Gran Abs 0.04 0.00 - 0.05 x10(3)/[facility] LABORATORY Specimen Anatomical Collection Method Collection Time Receive d Time (Source) Location / / Volume Laterality Blood specimen 09/13/2015 1:00 AM 016 1:44 (specimen) EDT AM EDT Resulting Agency Comment Spec In Lab Paul Marquez MD HEMATOLOGY ORDERABLES Performing Organization Address City/State/[place] [address] (ABNORMAL) Hemogram (09/13/2015 1:00 AM EDT) Analysis Performed At Patho logist Time Signature WBC 12.3 (H) 4.0 - 10.[address] [facility] x10(3)/[facility] LABORATORY RBC 5.08 4.63 - [facility] 6.08 [facility] x10(6)/[facility] LABORATORY Hemoglobin 14.8 13.7 - [facility] 17.5 gm/dL [facility] LABORATORY Hematocrit 44.1 40.0 - [facility] 51.0 % [facility] LABORATORY MCV 86.8 79.0 - [facility] SUNGCK 92.0 [facility] LABORATORY MCH 29.1 25.6 - [facility]ETH SNUGCK 32.2 pg [facility] LABORATORY MCHC 33.6 32.0 - [facility] JAIN 36.5 gm/dL [facility] LABORATORY Platelets 287 145 - 370 ELIZABETH MILES x10(3)/[facility] LABORATORY RDWSD 39.1 35.0 - ELIZABETH JAIN 46.0 [facility] LABORATORY RDWCV 12.3 10.9 - ELIZABETH JAIN 14.4 % [facility] LABORATORY MPV 9.5 9.0 - 12.0 ELIZABETH MILES [facility] LABORATORY nRBC % Auto 0.0 % [facility] LABORATORY nRBC Abs Auto 0.000 0.000 - ELIZABETH JAIN 0.012 [facility] x10(3)/[facility] LABORATORY Specimen Anatomical Collection Method Collection Time Receive d Time (Source) Location / / Volume Laterality Blood specimen 09/13/2015 1:00 AM 016 1:44 (specimen) EDT AM EDT Resulting Agency Comment Spec In Lab Paul Marquez MD HEMATOLOGY ORDERABLES Performing Organization Address City/State/[place] [address] Cardiac Enzymes (09/13/2015 1:00 AM EDT) P athologist Signature Troponin-T <0.03 <=0.03 [facility] ng/mL [facility] LABORATORY Comment: 0.03 ng/mL: Represents the 99th percenti le upper reference limit for normals. >0.03 ng/mL: Elevated cardiac troponin T level indicative of myocardial damage. Diagnosis of acute, evolving or recent M I requires a typical rise and gradual fall of cTnT with at least ONE of the fo llowing: a) Ischemic symptoms b) Development of pathologic Q waves on the ECG c) ECG changes indicative of eschemia (S -T segment elevation/depression) d) Coronary artery intervention Serial bloods should be obtained for tim ting on admission, at 6 to 9 hrs and again at 12 to 24 hrs if earlier samples are negative and the clinical index of suspicion is high. Reference: [Myocardial infarction redefined? a consensus document of the Joint Society of Cardiology/[place] [employer] Committee for the redefinition of myocardial infarction. ? ?Journal of the [place] [employer] 2000; 36: 959-969] CK, Total 101 0 - 200 unit/L [facility] Specimen Anatomical Collection Method Collection Time Receive d Time (Source) Location / / Volume Laterality Blood specimen 09/13/2015 1:00 AM 016 1:44 (specimen) EDT AM EDT Resulting Agency Comment Spec In Lab Paul Marquez MD CHEMISTRY ORDERABLES Performing Organization Address City/State/[place] [address] (ABNORMAL) Basic Metabolic Panel (non-fasting) (09/13/2015 1:00 AM EDT) athologist Signature Glucose Lvl 94 65 - [address] [facility] mg/dL [facility] Comment: Diabetes: >=200 mg/dL plus symp toms BUN 13 10 - 20 mg/dL [facility] Creatinine 1.05 0.80 - 1.50 mg/dL [facility] Comment: Please note that the pediatric reference intervals supplied above were not validated at [facility]. Results from pediatri c patients should be interpreted in conjunction to the patient's age, height and muscle mass. Sodium 140 135 - 145 mmol/L [facility] Potassium 3.8 3.5 - 5.0 mmol/L [facility] Comment: Please note: ??Patients with WBC >100,00 0 may have falsely elevated Potassium levels. ??For accurate Potassium quantif ication in these patients send serum separator tube (gold top) for subsequent determinations. ??Contact the Clinical Chemistry Laboratory if there are any qu estions. Chloride 100 98 - 107 mmol/L [facility] CO2 23 22 - 31 mmol/L [facility] Anion Gap 17 (H) 5 - 15 mmol/L [facility] Calcium 9.1 8.5 - 10.5 mg/dL [facility] Estimated GFR >60 >=[address] [facility] [address] Comment: This estimated GFR (eGFR) value was calc ulated using the MDRD equation which has been validated on patients between t he ages of 18 and 70. The MDRD should not be used to assess kidney function in patients < 18 years of age or in patients with extremes of body mass, or in patients with acute kidney failure. This value should be multiplied by 1.2 f or patients. For further information please copy and past e the following links into your internet browser. [email or web address] [email or web address] Specimen Anatomical Collection Method Collection Time Receive d Time (Source) Location / / Volume Laterality Blood specimen 09/13/2015 1:00 AM 016 1:44 (specimen) EDT AM EDT Resulting Agency Comment Spec In Lab Paul Marquez MD CHEMISTRY ORDERABLES Performing Organization Address City/[facility]/[place] [address] EKG 12 Lead (09/12/2015 11:11 PM EDT) [facility] gist Method Time Signature Ventricular rate 91 BPM MUSE SYSTEM Atrial Rate 91 BPM MUSE SYSTEM P-R Interval 146 ms MUSE SYSTEM QRS Duration 96 ms MUSE SYSTEM Q-T Interval 346 ms MUSE SYSTEM QTC Calculated 425 ms MUSE SYSTEM (Bezet) Calculated P [place] 31 degrees MUSE SYSTEM Calculated R [place] 27 degrees MUSE SYSTEM Calculated T [place] 17 degrees MUSE SYSTEM INTERPRETATION Normal sinus rhythm MUSE SYSTEM Normal ECG No previous ECGs available Confirmed by MD Morales Douglas ([id number]) on 09/13/2015 10:31:53 A M Specimen Anatomical Collection Method Collection Time Receive d Time (Source) Location / / Volume Laterality 09/12/2015 11:11 09/13/2015 PM EDT 10:31 AM EDT Narrative This result has an attachment that is no t available. Paul Marquez MD ECG ORDERABLES Performing Organization Address City/State/ZIP Code Phon e Number MUSE SYSTEM documented in this encounter Visit Diagnoses Diagnosis Chest pain, unspecified type documented in this encounter Care Teams Logistics Specialist Relationship Specialty Start Date End Date Percy Blanchard MD PCP - General Family Medicine 09/12/15 documented as of this encounter
--- OUTSIDE RECORDS SUMMARY | 2021-08-24 20:25 | XMS_ITS | Continuity of Care Document ---
:1985 Author Organization [facility] Address [address] [place] [address] Care Team Providers Name Role Phone Percy Blanchard Primary Care Physician Unavailable Allergies, Adverse Reactions, Alerts No allergy information available. Medications No medication information available. Problem List No problem information available. Procedures No known history of procedures. Relevant Diagnostic Tests and/or Laboratory Data No known relevant diagnostic tests, laboratory data, and/or discharge summary. Advance Directives Advance Directive Response Recorded Date/Time Does the patient have a living will? No Nov 3:05am Does the patient have an advanced directive? No December 14, 2015 3:05am Power of Die Cleaner? No December 14, 2015 3:0 5am Hospital Discharge Instructions No known hospital discharge instructions. Encounters Encounter Facility Location Admit Date Discharge Date Attending Provider Departed [facility] Emergency March 01March 01, [facility] 2016 4:22am 2016 5:13am Departed [facility] Emergency December 13December 13, [facility] 2015 2:55am 2015 3:10am Functional Status No known functional status. Immunizations No known immunizations. Payers Payer Name Policy Type Covered Covered Relationship Subscriber Sub scriber Id Alliance Party Alliance Party Id [place] MEDICAID Medicaid SHANIA [id number] SELF/SAME SHANIA [id number] KENNEDY PATIENT KENNEDY Plan of Care No known plan of care. Social History No known social history. Vital Signs No known vital signs results.
--- OUTSIDE RECORDS SUMMARY | 2021-08-24 20:25 | XMS_ITS | Encounter Summary ---
:1985 Author Organization [facility] [place] [address] Care Team Providers Name Role Phone Noel Burt Primary Care Provider Encounter Details Date Type Department Care Team Description 10/22/2014 Hospital Encounter XRay at [facility] Right knee pain [address] [facility] [place] [address] [place] [id number] Social History Tobacco Use Types Packs/Day Years [...] Sig Dispensed Refills Start Date End Date oxyCODONE 10 mg Tablet Take 10 mg by mouth 0 10/28/2020 every 4 hours as needed. UNABLE TO FIND Med Name: nubetone, 0 0 07/15/2020 anti inflammatory documented as of this encounter Plan of Treatment Not on filedocumented as of this encounter Procedures Procedure Name Priority Date/Time Associated Diagnosis Comme nts XR SPORTS TEAM PTS Routine 10/22/2014 8:56 AM Right knee pain Results for this UNDER 25 AP LAT EDT procedure ar e in [place] the result s BILATERAL section. documented in this encounter Results XR Sports Team Pts under 25 AP LAT [place] (10/22/2014 8:56 AM EDT) Anatomical Region [...] leg documented in this encounter Care Teams Nut Processing Supervisor Relationship Specialty Start Date End Date Noel Burt PA PCP - General 04/16/14 09/11/[address] [place] [address] [place] [phone] documented as of this encounter
--- OUTSIDE RECORDS SUMMARY | 2021-08-24 20:25 | XMS_ITS | Encounter Summary ---
:1985 Author Organization [facility] [place] [address] Care Team Providers Name Role Phone Noel Burt Primary Care Provider Encounter Details Date Type Department Care Team Description 02/10/2014 Orders Only Internal Medicine at Jorge Rubi MD [facility] DR Andrade Barros [facility] [place] [address] [place], [place] [id number] [phone] (Wo rk) Social History Tobacco Use Types Packs/Day Years Used Date Never Assessed Sex Assigned at Date Recorded Not on file documented as of this encounter Plan of Treatment Not on filedocumented as of this encounter Procedures Procedure Name Priority Date/Time Associated Diagnosis Comme [facility] FILM LIBRARY Routine 02/10/2014 10:43 AM Results for this STORAGE ONLY DX EST procedure ar e in KNEE the results section. documented in this encounter Results Film Library- Storage only DX Knee (02/10/2014 10:43 AM EST) Anatomical Region Laterality Modality Other Specimen (Source) Anatomical Collection Method Collection Time Re ceived Time Location / / Volume Laterality 02/10/2014 10:43 AM EST Narrative 04/17/2014 10:43 AM EST This is a Non-reportable exam Procedure Note ASTON, UNSIGNED REPORT - 04/17/2014Formatt ing of this note might be different from the original. This is a Non-reportable exam Leah Rubi MD [place] FILM LIBRARY ORDERABLES documented in this encounter Visit Diagnoses Not on filedocumented in this encounter Care Teams Director Organizational Relationship Specialty Start Date End Date Noel Burt PA PCP - General 04/16/14 09/11/[address] [place] [address] [place] [phone] documented as of this encounter
--- OUTSIDE RECORDS SUMMARY | 2021-08-24 20:25 | XMS_ITS | Encounter Summary ---
:1985 Author Organization [place] [address] Care Team Providers Name Role Phone Noel Burt Primary Care Provider Reason for Referral Surgical (Routine) - Closed Specialty Diagnoses / Procedures Referred By Contact Refer red To Contact Orthopaedics Sky Jimenez DO [facility] [address] [place] [address] [place] [address] Referral ID Status Reason Start Date Expiration Date Visits V isits Requested Authorized [id number] Closed Assume 04/16/2014 04/16/2015 3 3 Subset of Care Reason for Visit Reason Comments Leg Pain Encounter Details Date Type Department Care Team Description 04/16/2014 Emergency Emergency Department Hoang Vicente MD [facility] [place] [address] Right knee pain [facility] Neris Silverio MD [facility] [place] [address] [place] [address] Social History Tobacco Use Types Packs/Day Years Used Date Current Every Day Smoker Sex Assigned at Date Recorded Not on file documented as of this encounter Last Filed Vital Signs Vital Sign Reading Time Taken Comments Blood Pressure 140/72 04/16/2014 7:00 PM EST Pulse 97 04/16/2014 7:00 PM EST Temperature 36.7 ??C (98.1 ??F) 04/16/2014 7:00 PM EST Respiratory Rate 18 04/16/2014 7:00 PM EST Oxygen Saturation 99% 04/16/2014 7:00 PM EST Inhaled Oxygen Concentration - - Weight 137.4 kg (303 lb) 04/16/2014 5:00 PM EST Height - - Body Mass Index - - documented in this encounter Discharge Instructions Discharge InstructionsSky Jimenez - 04/16/2014 6:55 PM EST You were seen in the ER for knee pain. We believe it is safe for you to go home now, but no evaluation is perfect. It is very important that if you are becoming more ill, have new or worsening symptoms, or any other concerns you should return to the Emergency Department ( or the nearest Emergency Department ) for evaluation. You should follow up with your doctor in 3 days. documented in this encounter ED Notes Sky Jimenez - 04/16/2014 6:13 PM EST Chief Complaint Patient presents with ??? Leg Pain HPI Allan John is a 29 y.o. male who presents with right knee pain. The patient reports that this began 2 days prior to this presentation. He reports that when he stood up from a seated position he hadsudden onset pain in his right quadricep. Since then he reports that his been unable to walk. When asked if this was secondary to pain versus inability he reports that it was secondary to his inability. Reports exacerbation with movement and palpation with rest. Denies alleviation with ibuprofen. Reports that he is unable to extend his knee. Denies fevers, weakness, and numbness. Allergies Allergen Reactions ??? Diphenhydramine Hcl ??? Ibuprofen ??? [place] Review of Systems Constitutional: Negative for fever. Respiratory: Negative for shortness of breath. Cardiovascular: Negative for chest pain. Gastrointestinal: Negative for nausea and vomiting. Musculoskeletal: Positive for back pain. Right knee pain Chronic back pain Physical Exam Constitutional: He is oriented to person, place, and time. He appears well- developed. No distress. HENT: Head: Normocephalic and atraumatic. Eyes: Conjunctivae are normal. Right eye exhibits no discharge. Left eye exhibits no discharge. Neck: Neck supple. Cardiovascular: Normal rate. No murmur heard. Pulmonary/Chest: Effort normal. No respiratory distress. He has no wheezes. Musculoskeletal: Patient was unable to extend or flex his right knee. However, no effort noted when palpating his quadricep. Neurological: He is alert and oriented to person, place, and time. Skin: Skin is warm and dry. He is not diaphoretic. Psychiatric: He has a normal mood and affect. His behavior is normal. Nursing note and vitals reviewed. Procedures CONTRERAS John is a 29 y.o. male with a PMH significant for chronic back pain who presents with right knee pain. On exam his vitals are within normal limits. Physical exam significant for patient's lack of effort to extend or flex his knee. I considered quadriceps tendon rupture. He was given 0.5 mg of Dilaudid as well as 800 mg of ibuprofen in the Emergency Department. I reviewed the patient's knee x-ray which showed no evidence of acute fracture or high riding patella. Patient was placed in a brace and given crutches for comfort. I suspect secondary gains as the patient persistent about pain medication. He was felt to be safe for discharge with return precautions and followup with orthopedics. Ou tpatient referral to orthopedics has been made on his behalf. He was advised to take ibuprofen for pain. Sky Jimenez DO Resident 04/16/142128 Associated attestation - Hoang Kirk MD - 04/17/2014 6:08 PM EST ED ATTENDING ATTESTATION NOTE The patient was seen in conjunction with Dr. Jimenez, the resident physician. I have independently performed the bingham portions of the history and physical exam. I have reviewed the nursing notes, vital signs, and all diagnostic studies personally including labs, imaging studies and EKGs. I have discussed the details of the case with the resident and agree with the assessment and plan as described in the resident note above unless noted otherwise below. Brief Summary: 29 yo c/o R knee pain and difficulty walking since standing up 2 d ago. No trauma. Nosystemic complaints. No findings on exam except diffuse quad/anterior knee tenderness. Unable to assess quad function as patient will not make any effort to contract quads. Final Assessment: R knee pain - no fx/infx. Doubt quad rutpure by mechanism or exam but unable to fully assess. Home as above to f/u with ortho if not improving. documented in this encounter Miscellaneous Notes ED Triage - Ramsey Antunez RN - 04/16/2014 5:01 PM EST Pt presents to the ED with Rt leg pain. He states this pain has been recurrent several times over the last two years. In the past 48 hours he noted a sudden onset of pain in the area of his Rt knee butalso above the knee joint. He denies trauma of any kind. Distally his foot tingly, and the pain worsens with weight bearing. documented in this encounter Plan of Treatment Scheduled Referrals Name Type Priority Associated Order Schedule Diagnoses Referral to Outpatient Referral Routine Ordered: Orthopaedics 04/16/2014 documented as of this encounter Procedures Procedure Name Priority Date/Time Associated Comments Diagnosis XR KNEE DIAGNOSTIC 1 STAT 04/16/2014 6:45 PM R esults for this OR 2 VIEW EST procedure are i n the results section. GOLD TUBE HOLD STAT 04/16/2014 6:26 PM Results for this EST procedure are i n the results section. BLUE TUBE HOLD STAT 04/16/2014 6:26 PM Results for this EST procedure are i n the results section. GREEN TUBE HOLD STAT 04/16/2014 6:26 PM Result s for this EST procedure are i n the results section. LAVENDER TUBE HOLD STAT 04/16/2014 6:26 PM Res ults for this EST procedure are i n the results section. documented in this encounter Results XR knee diagnostic 1 or 2 view (04/16/2014 6:45 PM EST) Anatomical Region Laterality Modality Knee N/A Radiographic Imaging Specimen (Source) Anatomical Collection Method Collection Time Re ceived Time Location / / Volume Laterality 04/16/2014 6:45 PM EST Impressions 04/16/2014 7:00 PM EST IMPRESSION: No acute findings are identified. Narrative 04/16/2014 7:00 PM EST EXAMINATION: KNEE 1 OR 2 VIEWS/RIGHT CLINICAL HISTORY: pain and unable to ext end knee ? high riding pattella ? fx ? effusion TECHNIQUE: AP and crosstable lateral vie ws of the right knee. COMPARISON: Lower extremity radiographs that include portions of the right knee from 01/31/2009. FINDINGS: The osseous structures appear normally mineralized and aligned. No fracture is identified. No definite join t effusion is seen. The patella appears in normal position for and unchanged, al lowing for differences in radiographic projection and patient positioning, comp ared to 2008 Procedure Note Pema Conner MD - 04/16/2014Formatt ing of this note might be different from the original. EXAMINATION: KNEE 1 OR 2 VIEWS/RIGHT CLINICAL HISTORY: pain and unable to ext end knee ? high riding pattella ? fx ? effusion TECHNIQUE: AP and crosstable lateral vie ws of the right knee. COMPARISON: Lower extremity radiographs that include portions of the right knee from 01/31/2009. FINDINGS: The osseous structures appear normally mineralized and aligned. No fracture is identified. No definite join t effusion is seen. The patella appears in normal position for and unchanged, al lowing for differences in radiographic projection and patient positioning, comp ared to 2008 IMPRESSION IMPRESSION: No acute findings are identified. Hoang Kirk MD IMG DX ORDERABLES Lavender Tube HOLD (04/16/2014 6:26 PM EST) [facility] gist Method Time Signature Lavender Hold Sample in [employer] Shoto Specimen Anatomical Collection Method Collection Time Receive d Time (Source) Location / / Volume Laterality Blood specimen 04/16/2014 6:26 PM 015 6:42 (specimen) EST PM EST Hoang Kirk MD HEMATOLOGY ORDERABLES Performing Organization Address City/State/[place] [address] [facility] [employer] Green Tube HOLD (04/16/2014 6:26 PM EST) athologist Signature Green Hold Sample in [employer] Shoto Specimen Anatomical Collection Method Collection Time Receive d Time (Source) Location / / Volume Laterality Blood specimen 04/16/2014 6:26 PM 015 6:42 (specimen) EST PM EST Hoang Kirk MD CHEMISTRY ORDERABLES Performing Organization Address City/[facility]/[place] [address] [facility] [employer] Blue Tube HOLD (04/16/2014 6:26 PM EST) P athologist Signature Blue Hold Sample in [facility] lab. [facility] Specimen Anatomical Collection Method Collection Time Receive d Time (Source) Location / / Volume Laterality Blood specimen 04/16/2014 6:26 PM 015 6:42 (specimen) EST PM EST Hoang Kirk MD HEMATOLOGY ORDERABLES Performing Organization Address City/[facility] [place] [address] [facility] [employer] Gold Tube HOLD (04/16/2014 6:26 PM EST) athologist Signature Gold Hold Sample in [facility]. [facility] Specimen Anatomical Collection Method Collection Time Receive d Time (Source) Location / / Volume Laterality Blood specimen 04/16/2014 6:26 PM 015 6:42 (specimen) EST PM EST Hoang Kirk MD CHEMISTRY ORDERABLES Performing Organization Address City/[facility] [place] [address] [facility] documented in this encounter Visit Diagnoses Diagnosis Right knee pain Pain in joint, lower leg documented in this encounter Administered Medications Inactive Administered Medications - up to 3 most recent administrations Medication Order MAR Action Action Date Dose Rate Site HYDROmorphone (DILAUDID) injection Given 04/16/2014 6:22 PM EST 0.5 mg 0.5 mg 0.5 mg, Intravenous, ONCE, 1 dose, On Tue04/16/14 at 1815, STAT ibuprofen (ADVIL;MOTRIN) tablet 800 mg Given 04/16/2014 7:34 PM EST 800 mg 800 mg, Oral, ONCE, 1 dose, On Tue04/16/14 at 1934, Administer orally with milk or food to minimize GI irritation, STAT documented in this encounter Active and Recently Administered Medications Times are shown in EST. Scheduled Medication Order 04/14/2014 04/15/2014 04/16/2014 HYDROmorphone (DILAUDID) injection 0.5 mg (COMPLETED) 1821 (Given - Provider: Mackenzie Chaudhry, THONG) 0.5 mg, Intravenous, ONCE, 1 dose, 04/16/14 at 1815, STAT ibuprofen (ADVIL;MOTRIN) tablet 800 mg (COMPLETED) 1933 (Given - Provider: Mackenzie Chaudhry RN) 800 mg, Oral, ONCE, 1 dose, 04/16/14 a t 1933, Administer orally with milk or food to minimize GI irritation, STAT documented in this encounter Care Teams Information Systems Security Developer Relationship Specialty Start Date End Date Noel Burt PA PCP - General 04/16/14 09/11/[address] [place] [address] [place] [phone] documented as of this encounter
--- OUTSIDE RECORDS SUMMARY | 2021-08-24 20:25 | XMS_ITS | Encounter Summary ---
:1985 Author Organization [facility] [place] [address] Care Team Providers Name Role Phone Percy Blanchard MD Primary Care Provider Encounter Details Date Type Department Care Team Description 09/11/2017 Telehealth notes only TeleHealth Telehealth, [facility] [place] [address] [address] Social History Tobacco Use Types Packs/Day [...] on filedocumented in this encounter Care Teams Laborer Hide House Relationship Specialty Start Date End Date Percy Blanchard MD PCP - General Family Medicine 09/12/15 documented as of this encounter
--- OUTSIDE RECORDS SUMMARY | 2021-08-24 20:25 | XMS_ITS | Continuity of Care Document ---
:1985 Author Organization [facility] Address [address] [place] [address] Care Team Providers Name Role Phone Percy [...] No December 14, 2015 3:05am Power of Communications Operator? No December 14, 2015 3:0 5am Hospital Discharge Instructions No known hospital discharge instructions. Encounters Encounter Facility Location Admit Date Discharge Date Attending Provider Departed [facility] Emergency December 13, December 13, [facility] 2015 2:55am 2015 3:10am Functional Status No known functional status. Immunizations No known immunizations. Payers Payer Name Policy Type Covered Covered Relationship Subscriber Sub scriber Id Democrat Democrat Id [place] Medicaid SHANIA [id number] SELF/SAME SHANIA [id number] KENNEDY PATIENT KENNEDY Plan of Care No known plan of care. Social History No known social history. Vital Signs No known vital signs results.
[2021-08-24 20:31] VITALS: BP 143/82; PULSE 103; RESP 18; TEMP 36.9; O2SAT 95
--- NOTE | 2021-08-24 20:41 | W.ED.GENAD ---
Discharge Plan Disposition Patient Disposition: HOME Condition: Stable Discharge Details Clinical Impression: Acute bacterial conjunctivitis of both eyes, URI (upper respiratory infection) Primary Care Provider: Noel Burt ED Provider: Khushbu Stauffer Home Meds and New Rx's Prescriptions: New azithromycin 250 mg tablet See Rx Instructions .ROUTE .COMPLEX 6 Days Qty: 6 0RF Rx Instructions: For 250 mg dose pack: take 500 mg today (day 1), then 250 mg for 4 days (days 2-5) Discharge Instructions Instructions: Upper Respiratory Infection (ED), Conjunctivitis (ED) Additional Instructions: At this time it appears that you have bilateral bacterial pinkeye. Pinkeye is extremely contagious use a warm washcloth and dab at your eyes try not to rub them or touch her eyes without washing your hands. Wash pillows and towels in hot water. Please take the eyedrops as directed 1-2 drops to both eyes x5 to 7 days. Please take the antibiotic as directed. 2 tablets on the first day and then 1 a day for the next 4 days after that. Please take Tylenol or Ibuprofen with food every 4-6 hours as needed for pain and swelling. Stand Alone Forms: Work Release Referrals: Noel Burt [Primary Care Provider] - 1 week Discharge Data Discharge Date/Time-TO BE ENTERED AT DEPARTURE: 08/24/21 21:34 Medical Decision Making Findings consistent with bilateral bacterial conjunctivitis. There is purulent drainage noted to the left side. Patient also reports that he has had a URI and what he presumes is bronchitis for the last couple of weeks. He has not been seen for this. He does have a cough posterior oropharynx is erythemic no obvious exudate. We will give patient Polytrim eyedrops and instructions on use and place patient on [facility]er[facility] Given instructions on home care verbalized understanding. This text was generated using [employer] dictation system, please disregard any oddities of phrase or misspellings. HPI General Mode of arrival: ambulatory. Date/Time Provider Initiated Documentation: 08/24/21 20:18. Limitations to Documentation: no limitations. Information obtained by: patient, RN notes reviewed and old records reviewed. HPI Narrative: 36-year-old male presents to the ER with chief complaint of bilateral eye redness, itching and drainage over the last couple of days. He also notes sore throat and cough and URI type symptoms over the last couple weeks which he has not been seen for. He reports having a recent negative rapid home COVID test. Past medical history includes severe obesity, former smoker, chronic back pain. Related Data Home Medications Medication Instructions Recorded Confirmed azithromycin 250 mg tablet See Rx Instructions PO .COMPLEX 6 08/24/21 days #6 tabs Previous Rx's Medication Instructions Recorded azithromycin 250 mg tablet See Rx Instructions PO .COMPLEX 6 08/24/21 days #6 tabs Allergies Allergy/AdvReac Type Severity Reaction Status Date / Time diphenhydramine HCl Allergy Severe Anaphylaxsi Verified 08/18/21 20:13 [From Benadryl] s cefuroxime [From Ceftin] Allergy Mild Unverified 08/18/21 20:15 guaifenesin [From Robitussin] Allergy Unknown Unverified 08/18/21 20:13 ibuprofen [From Advil] Allergy Unknown Verified 08/18/21 20:13 Sulfa (Sulfonamide Allergy Unknown Verified 08/18/21 20:13 Antibiotics) NSAIDS (Non-Steroidal Allergy Swelling/Ed Unverified 08/24/21 20:36 Anti-Inflamma anisha red 40 Allergy Mild Hives Uncoded 08/18/21 20:15 General Stated Complaint: EyeProblem KRIS: 4 Review of Systems Eyes Eyes: Reports as per HPI, Reports eye discharge, Reports irritation and Reports itchy eyes Respiratory Respiratory: Reports cough Gastrointestinal Gastrointestinal: Denies diarrhea, Denies nausea and Denies vomiting Allergic/Immunologic Allergic/Immunologic: Reports itchy eyes PFSH All Active Problems Right ankle sprain (Acute) Acute bilateral ankle pain (Acute) Muscle strain, shoulder region (Acute) Lumbago (Acute) Acute bacterial conjunctivitis of both eyes (Acute) URI (upper respiratory infection) (Acute) Chest pain (Acute) Arm pain (Acute) Posterior tibial tendinitis, right leg (Acute) Sprain of right wrist (Acute) [place] teeth extracted (Acute) 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) Therapeutic drug monitoring (Acute) Lower back injury (Acute) Injury of neck (Acute) Low back strain (Acute) Snoring (Acute) Drowsy (Acute) Low back pain (Acute) Lumbago with sciatica (Acute) Pain in thoracic spine (Acute) Neck pain (Acute) Joint pain (Acute) Arthropathy (Acute) Gastritis (Acute) Pharyngitis (Acute) Developmental academic disorder (Acute) Nicotine dependence (Acute) Severe obesity (Acute) Obesity (Chronic) Right knee pain (Acute) Laceration of left foot with tendon involvement (Chronic) Status post extensor tendon repair left great toe DOS: 11/29/17 Medical History Chronic back pain Social History Smoking/Tobacco Use Status: Former Tobacco Use Smoking risk assessment performed?: Yes Alcohol Intake: current Alcohol Intake frequency: holidays/special occasions only Drug use: Never Substance use type: does not use Current gender identity: male Do you feel safe at home: Yes Do you feel safe in your relationship?: Yes Exam Eyes Alignment and Position: alignment normal Periorbital: periorbital findings normal Eyelids: eyelids normal Conjunctivae: conjunctival abnormality bilaterally conjunctival injection diffuse and discharge purulent Sclera: sclerae normal Cornea: corneas normal Resp Effort & Inspection: normal respiratory effort, able to speak in complete sentences, cough Quality of cough: actively coughing, not labored and no pursed lip breathing Auscultation: clear to auscultation bilaterally and no wheezes Cardio Rate: regular rate Rhythm: regular rhythm Heart Sounds: S1 normal and S2 normal Course Vital Signs Vital signs: Vital Signs Temperature 36.9 C 08/24/21 20:31 Pulse 103 H 08/24/21 20:31 Respiratory Rate 18 08/24/21 20:31 Blood Pressure 143/82 H 08/24/21 20:31 Pulse Oximetry 95 08/24/21 20:31 Temperature 36.9 C 08/24/21 20:31 Temperature Source Oral 08/24/21 20:31 Pulse 103 H 08/24/21 20:31 Respiratory Rate 18 08/24/21 20:31 Respiratory Effort Non-Labored 08/24/21 20:33 Blood Pressure 143/82 H 08/24/21 20:31 Blood Pressure Position Sitting 08/24/21 20:31 Pulse Oximetry 95 08/24/21 20:31 Oxygen Delivery Method Room Air 08/24/21 20:31 Oxygen Flow Rate 0 08/24/21 20:31 Pain Level 3 08/24/21 20:31
[2021-08-24] MEDS: Polymyxin B/Trimethoprim Ophth Soln 10 ML BTL OU (21:16)
[2021-08-24 21:25] VITALS: BP 140/78; PULSE 88; RESP 18; TEMP 36.7; O2SAT 95
[2021-08-26 11:04] LABS: COVID-19 RT-PCR UVMMC Result Negative (Negative)
== END 2021-08-24 21:34 | disposition home or self-care (01) ==
PROVIDERS: Emergency Provider Registered Nurse Emergency; PCP Physician Assistant
DX: H10.33 Unspecified acute conjunctivitis, bilateral (principal); J06.9 Acute upper respiratory infection, unspecified; B96.89 Other specified bacterial agents as the cause of diseases classified elsewhere; Z87.891 Personal history of nicotine dependence
CPT/HCPCS: 99283; U0003; 99284

== ENCOUNTER 2021-09-03 06:39 | Emergency (ER) | payer MEDICAID, SELFPAY ==
[2021-09-03 06:46] VITALS: BP 105/67; PULSE 102; RESP 20; TEMP 37.1; O2SAT 96
--- NOTE | 2021-09-03 07:56 | DI.RAD_ITS ---
Exam(s) XR SHOULDER LT COMPLETE 2+V EXAM: XR SHOULDER LT COMPLETE 2+V CLINICAL HISTORY: injury. TECHNIQUE: 2D digital imaging was performed. COMPARISON: CR,XR XR SHOULDER RT COMPLETE 2+V from 01/10/2021 FINDINGS: Four views No evidence of fracture or dislocation. No abnormal soft tissue calcifications Bone density normal. No osseous lesions. IMPRESSION: No fracture. DATA REPOSITORY: RADIATION DOSE DELIVERED:
--- NOTE | 2021-09-03 07:57 | NUR.NOTE ---
pt is requesting pain medication for shoulder. provider notified.
--- NOTE | 2021-09-03 08:34 | PDOC.ERCMPRO ---
- If Service Date Differs Date of service: 09/03/21 Time of Service: 08:34 Care Management Progress Note SBIRT screen negative. Minimal alcohol and no nicotine, substance use or mental health symptoms reported.
--- NOTE | 2021-09-03 08:36 | ED.GENADUL_ITS ---
Discharge Plan Disposition Patient Disposition: HOME Condition: Stable Discharge Details Chief Complaint: Orthopedic Clinical Impression: Injury of left shoulder Primary Care Provider: Noel Burt ED Provider: Corbin Birch Discharge Instructions Instructions: Shoulder Sprain (ED) Additional Instructions: Call orthopedics tomorrow for an appointment if you have severe worsening pain or new pain such as chest pain or abdominal pain return to the emergency department Stand Alone Forms: Work Release Referrals: Rip Velasquez MD [ [facility] STAFF PHYSICIAN] - Medical Decision Making 36 yo male was throwing heavy bags in his barn onto an upper level. He threw a 60 pound bag and had immediate pain in the posterior shoulder. Denies falls or other trauma. He has pain localized to the posterior shoulder, no visual or palpable deformity. He has limited rom due to the pain and has a positive drop arm test. Normal distal sensation and pulses. Xray taken prior to my exam show no acute findings. Suspect rotator cuff injury based on mechanism and exam. Will place in sling for comfort and have him f/u with ortho within a week for reassessment, Return precautions given Differential Diagnosis Differential Diagnosis: rotator cuff injury, strain, sprain Imaging Data Radiologic Study: Attestation: I personally reviewed and interpreted this imaging study as follows: Imaging: X-Ray Radiologist's impression: no acute findings HPI General Mode of arrival: ambulatory . Date/Time Provider Initiated Documentation: 09/03/21 07:00 . Limitations to Documentation: no limitations . Information obtained by: patient . History of Present Illness 36 year old M presents to the emergency department with the chief complaint of left shoulder pain, described as moderate, and is localized to the left and upper extremity. Patient started experiencing this hour(s) (1) and it has been constant. Rest improves symptom(s), Movement worsens symptoms . Patient notes no other symptoms.. Related Data Allergies Allergy/AdvReac Type Severity Reaction Status Date / Time diphenhydramine HCl Allergy Severe Anaphylaxsi Verified 09/03/21 06:54 [From Benadryl] s cefuroxime [From Ceftin] Allergy Mild Unverified 09/03/21 06:54 guaifenesin [From Robitussin] Allergy Unknown Unverified 09/03/21 06:54 ibuprofen [From Advil] Allergy Unknown Verified 09/03/21 06:54 Sulfa (Sulfonamide Allergy Unknown Verified 09/03/21 06:54 Antibiotics) NSAIDS (Non-Steroidal Allergy Swelling/Ed Unverified 09/03/21 06:54 Anti-Inflamma anisha red 40 Allergy Mild Hives Uncoded 09/03/21 06:54 General Stated Complaint: GenMedical KRIS: 4 Review of Systems All systems reviewed & are unremarkable except as noted in HPI and below Constitutional Constitutional: Denies chills and Denies fever(s) ENT Ears, Nose, Mouth, and Throat: Denies change in voice Cardiovascular Cardiovascular: Denies chest pain and Denies dyspnea Respiratory Respiratory: Denies cough and Denies dyspnea Gastrointestinal Gastrointestinal: Denies abdominal pain, Denies nausea and Denies vomiting Musculoskeletal Musculoskeletal: Denies joint swelling Integumentary/Breasts Skin/Breast: Denies rash PFSH All Active Problems Right ankle sprain (Acute) Acute bilateral ankle pain (Acute) Muscle strain, shoulder region (Acute) Lumbago (Acute) Acute bacterial conjunctivitis of both eyes (Acute) URI (upper respiratory infection) (Acute) Injury of left shoulder (Acute) Chest pain (Acute) Arm pain (Acute) Posterior tibial tendinitis, right leg (Acute) Sprain of right wrist (Acute) [place] teeth extracted (Acute) 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) Therapeutic drug monitoring (Acute) Lower back injury (Acute) Injury of neck (Acute) Low back strain (Acute) Snoring (Acute) Drowsy (Acute) Low back pain (Acute) Lumbago with sciatica (Acute) Pain in thoracic spine (Acute) Neck pain (Acute) Joint pain (Acute) Arthropathy (Acute) Gastritis (Acute) Pharyngitis (Acute) Developmental academic disorder (Acute) Nicotine dependence (Acute) Severe obesity (Acute) Obesity (Chronic) Right knee pain (Acute) Laceration of left foot with tendon involvement (Chronic) Status post extensor tendon repair left great toe DOS: 11/29/17 Medical History Chronic back pain Social History Smoking/Tobacco Use Status: Former Tobacco Use Smoking risk assessment performed?: Yes Alcohol Intake: current Alcohol Intake frequency: holidays/special occasions only Drug use: Never Substance use type: does not use Current gender identity: male Do you feel safe at home: Yes Do you feel safe in your relationship?: Yes Exam Const General: no acute distress Orientation: alert HENMT Head: normal to inspection Ears: external ears normal General nose exam: external nose normal Mouth: moist mucous membranes Eyes General: appearance normal, both eyes and all related structures Neck Neck: normal visual inspection Resp Effort & Inspection: normal respiratory effort and able to speak in complete sentences Cardio Rate: regular rate Skin General skin exam: no rashes or lesions noted Neuro General: patient alert and patient oriented x3 Extrem General: capillary refill normal Psych Mental Status: mental status grossly normal Course Vital Signs Vital signs: Vital Signs Temperature 37.1 C 09/03/21 06:46 Pulse 102 H 09/03/21 06:46 Respiratory Rate 20 09/03/21 06:46 Blood Pressure 105/67 09/03/21 06:46 Pulse Oximetry 96 09/03/21 06:46 Temperature 37.1 C 09/03/21 06:46 Temperature Source Skin 09/03/21 06:46 Pulse 102 H 09/03/21 06:46 Respiratory Rate 20 09/03/21 06:46 Respiratory Effort 09/03/21 06:55 Blood Pressure 105/67 09/03/21 06:46 Pulse Oximetry 96 09/03/21 06:46 Oxygen Delivery Method Room Air 09/03/21 06:46 Oxygen Flow Rate 0 09/03/21 06:46 Pain Level 8 09/03/21 07:29
[2021-09-03] MEDS: HYDROmorphone 2 MG/ML VIAL 1 MG IM (08:44)
[2021-09-03 08:46] VITALS: BP 142/77; PULSE 77; RESP 16; O2SAT 99
== END 2021-09-03 08:50 | disposition home or self-care (01) ==
PROVIDERS: Emergency Provider Emergency Medicine; PCP Physician Assistant
DX: S49.92XA Unspecified injury of left shoulder and upper arm, initial encounter (principal); Z87.891 Personal history of nicotine dependence; X50.0XXA Overexertion from strenuous movement or load, initial encounter
CPT/HCPCS: 96372; 99284; 73030

== ENCOUNTER 2021-09-12 19:59 | Emergency (ER) | payer MEDICAID, SELFPAY ==
[2021-09-12 20:08] VITALS: BP 131/95; PULSE 112; RESP 18; TEMP 36.4; O2SAT 96
--- NOTE | 2021-09-12 20:15 | DI.RAD_ITS ---
Exam(s) XR TIB/FIB RT EXAM: XR TIB/FIB RT CLINICAL HISTORY: pain s/p fall TECHNIQUE: COMPARISON: No exams were available for comparison FINDINGS: Two views were obtained. There is no evidence of acute fracture or dislocation. IMPRESSION: RADIATION DOSE DELIVERED: Total DLP
--- NOTE | 2021-09-12 20:25 | ED.GENADUL_ITS ---
Discharge Plan Disposition Patient Disposition: HOME Condition: Stable Discharge Details Chief Complaint: Orthopedic Clinical Impression: Contusion of leg, right Primary Care Provider: Noel Burt ED Provider: Corbin Birch Home Meds and New Rx's Prescriptions: No Action No Known Home Meds Discharge Instructions Instructions: Contusion in Adults (ED) Additional Instructions: if pain continues in a week follow up with your primary care provider if you feel more ill, have severe worsening pain or new pain such as chest pain return to the emergency department Medical Decision Making 36 yo male comes in after a fall. He was walking up the steps of his porch, slipped and hit his right tibia. He denies hitting his head or loc. He has no head pain, neck pain, chest pain, abdomen pain, back pain. He localizes the pain to the mid lateral tibia. There is no gross abnormalities, has a 2cm abrasion in the area. Has normal distal sensation no pain or tenderness of the ankle or knee with full rom. Suspect contusion but will xray to evaluate for fracture. Muscles are soft and no swelling so doubt entities such as compartment syndrome. He does appear mildly anxious on exam so will also treat with small dose of valium and reassess. xray unremarkable and he remains stable, no new pain elsewhere. He is stable for d/c and advised to f/u with pcp if pain continues and return precautions given Differential Diagnosis Differential Diagnosis: contusion, hematoma, fracture Imaging Data Radiologic Study: Attestation: I personally reviewed and interpreted this imaging study as f trever: Imaging: X-Ray My impression: no acute findings HPI General Mode of arrival: ambulatory . Date/Time Provider Initiated Documentation: 09/12/21 20:01 . Limitations to Documentation: no limitations . Information obtained by: patient . History of Present Illness 36 year old M presents to the emergency department with the chief complaint of right tibia pain, described as moderate, Quality is described as aching, and is localized to the right and lower extremity. Patient reports no radiation. Patient started experiencing this hour(s) (1) and it has been constant. No relieving factors improve symptom(s), No exacerbating factors reported . Patient notes no other symptoms.. Patient did receive the following treatments prior to arrival, none Related Data Home Medications Medication Instructions Recorded Confirmed Unknown [No Known Home Meds] 09/12/21 09/12/21 Allergies Allergy/AdvReac Type Severity Reaction Status Date / Time diphenhydramine HCl Allergy Severe Anaphylaxsi Verified 09/12/21 20:11 [From Benadryl] s cefuroxime [From Ceftin] Allergy Mild Unverified 09/12/21 20:11 guaifenesin [From Robitussin] Allergy Unknown Unverified 09/12/21 20:11 ibuprofen [From Advil] Allergy Unknown Verified 09/12/21 20:11 Sulfa (Sulfonamide Allergy Unknown Verified 09/12/21 20:11 Antibiotics) NSAIDS (Non-Steroidal Allergy Swelling/Ed Unverified 09/12/21 20:11 Anti-Inflamma anisha red 40 Allergy Mild Hives Uncoded 09/12/21 20:11 General Stated Complaint: Orthopedic KRIS: 4 Review of Systems All systems reviewed & are unremarkable except as noted in HPI and below Constitutional Constitutional: Denies chills, Denies fever(s) and Denies weakness Eyes Eyes: Denies loss of vision Cardiovascular Cardiovascular: Denies chest pain and Denies dyspnea Respiratory Respiratory: Denies cough and Denies dyspnea Gastrointestinal Gastrointestinal: Denies abdominal pain, Denies nausea and Denies vomiting Genitourinary Genitourinary: Denies dysuria Musculoskeletal Musculoskeletal: Denies joint swelling Integumentary/Breasts Skin/Breast: Denies rash Neurologic Neurologic: Denies loss of vision and Denies weakness PFSH All Active Problems Right ankle sprain (Acute) Acute bilateral ankle pain (Acute) Muscle strain, shoulder region (Acute) Lumbago (Acute) Acute bacterial conjunctivitis of both eyes (Acute) URI (upper respiratory infection) (Acute) Injury of left shoulder (Acute) Contusion of leg, right (Acute) Chest pain (Acute) Arm pain (Acute) Posterior tibial tendinitis, right leg (Acute) Sprain of right wrist (Acute) [place] teeth extracted (Acute) shelter 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 use of therapeutic drug (Acute) Therapeutic drug monitoring (Acute) Lower back injury (Acute) Injury of neck (Acute) Low back strain (Acute) Snoring (Acute) Drowsy (Acute) Low back pain (Acute) Lumbago with sciatica (Acute) Pain in thoracic spine (Acute) Neck pain (Acute) Joint pain (Acute) Arthropathy (Acute) Gastritis (Acute) Pharyngitis (Acute) Developmental academic disorder (Acute) Nicotine dependence (Acute) Severe obesity (Acute) Obesity (Chronic) Right knee pain (Acute) Laceration of left foot with tendon involvement (Chronic) Status post extensor tendon repair left great toe DOS: 11/29/17 Medical History Chronic back pain Social History Smoking/Tobacco Use Status: Former Tobacco Use Smoking risk assessment performed?: Yes Alcohol Intake: current Alcohol Intake frequency: holidays/special occasions only Drug use: Never Substance use type: does not use Current gender identity: male Do you feel safe at home: Yes Do you feel safe in your relationship?: Yes Exam Const General: no acute distress Orientation: alert HENMT Head: normal to inspection Ears: external ears normal General nose exam: external nose normal Mouth: moist mucous membranes Eyes General: appearance normal, both eyes and all related structures Neck Neck: normal visual inspection Resp Effort & Inspection: normal respiratory effort and able to speak in complete sentences Cardio Rate: regular rate Skin General skin exam: no rashes or lesions noted Neuro General: patient alert and patient oriented x3 Extrem General: full ROM and capillary refill normal Psych Mental Status: mental status grossly normal Course Vital Signs Vital signs: Vital Signs Temperature 36.4 C L 09/12/21 20:08 Pulse 112 H 09/12/21 20:08 Respiratory Rate 18 09/12/21 20:08 Blood Pressure 131/95 H 09/12/21 20:08 Pulse Oximetry 96 09/12/21 20:08 Temperature 36.4 C L 09/12/21 20:08 Temperature Source Skin 09/12/21 20:08 Pulse 112 H 09/12/21 20:08 Respiratory Rate 18 09/12/21 20:08 Respiratory Effort Non-Labored 09/12/21 20:12 Blood Pressure 131/95 H 09/12/21 20:08 Pulse Oximetry 96 09/12/21 20:08 Pain Level 10 09/12/21 20:08
[2021-09-12] MEDS: diazePAM 5 MG TAB PO (20:42)
--- NOTE | 2021-09-12 21:12 | DI.VRAD_ITS ---
PROCEDURE INFORMATION: Exam: XR Right Tibia and Fibula Exam date and time: 09/12/2021 20:54 Age: 36 years old Clinical indication: Other: Pain S/P fall TECHNIQUE: Imaging protocol: Radiologic exam of the Right tibia and fibula. Views: 2 views. COMPARISON: CR XR ANKLE RT COMPLETE 11/24/2020 19:45 FINDINGS: Bones/joints: The tibia and fibula are intact. No acute fracture or subluxation. Soft tissues: Evidence of probable chronic ligamentous injury in the medial ankle. IMPRESSION: The tibia and fibula are intact. Dictated and Authenticated by: Josefina Fatima MD. Ordering:CAIN Alaniz MD
== END 2021-09-12 21:35 | disposition home or self-care (01) ==
PROVIDERS: Emergency Provider Emergency Medicine; PCP Physician Assistant
DX: S80.11XA Contusion of right lower leg, initial encounter (principal); Z87.891 Personal history of nicotine dependence; W10.8XXA Fall (on) (from) other stairs and steps, initial encounter; Y93.01 Activity, walking, marching and hiking; W22.8XXA Striking against or struck by other objects, initial encounter
CPT/HCPCS: 99283; 73590; 99284

== ENCOUNTER 2021-12-23 01:05 | Emergency (ER) | payer MEDICAID, SELFPAY ==
--- NOTE | 2021-12-23 01:00 | RT.EKG_ITS ---
APPROVED REPORT Exam: Resting ECG Reason for Exam: Patient Location: E HR:89 bpm ECG Measurements Heart Rate 89 AXIS SD 144 P 19 QRSd 98 QRS 40 QT 347 T 4 QTc 423 Conclusion Sinus rhythm...normal P axis, V-rate 60- 99
[2021-12-23 01:13] VITALS: BP 150/87; PULSE 94; RESP 15; TEMP 36.7; O2SAT 97
--- NOTE | 2021-12-23 01:15 | DI.CT_ITS ---
Exam(s) CT BRAIN NECK CTA EXAM: CT BRAIN NECK CTA CLINICAL HISTORY: slurred speech, hand weakness. TECHNIQUE: Imaging Protocol: Axial CT angiography was performed with multi-slice acquisition and mu lti-planar and/or 3D reconstructions. CONTRAST MATERIAL: Intravenous: Omnipaque 350 contrast volume:85 mL COMPARISON: CT HEAD WITHOUT CONTRAST from 10/31/2016 FINDINGS: Examination limited by patient body habitus. CT Head W/O and W: Ventricles and Extra axial spaces: Normal in size and morphology for the patient's age. Hemorrhage: None. Cerebral parenchyma: Normal. Midline shift: None. Brainstem/Cerebellum: Normal. Calvarium: Normal. Visualized Paranasal sinuses/Mastoids: There is a mucous retention cyst or polyp in the right maxilla ry sinus. There is mild mucosal thickening in the left maxillary sinus. The remaining visualized pa ranasal sinuses and mastoid air cells are clear. Soft Tissues: Unremarkable. Enhancement: Unremarkable. CTA Neck W: Common Carotid: Right: No dissection, occlusion or significant stenosis. Left: No dissection, occlusion or significant stenosis. External Carotid: Right: No occlusion or significant stenosis. Left: No occlusion or significant stenosis. Internal Carotid: Right: No dissection, occlusion or significant stenosis. Left: No dissection, occlusion or significant stenosis. Vertebral Artery: Right: No dissection, occlusion or significant stenosis. Left: No dissection, occlusion or significant stenosis. Lung Apices: Normal. Bones: Within normal limits for the patient's age. Soft Tissues: Normal. Thyroid gland: Unremarkable. CTA Brain W: Internal Carotid Arteries: Normal. Anterior Cerebral Arteries: Right: No aneurysm, occlusion or significant stenosis. Left: No aneurysm, occlusion or significant stenosis. Middle Cerebral Arteries: Right: No aneurysm, occlusion or significant stenosis. Left: No aneurysm, occlusion or significant stenosis. Posterior Cerebral Arteries: Right: No aneurysm, occlusion or significant stenosis. Left: No aneurysm, occlusion or significant stenosis. Vertebral Arteries: Right: No aneurysm, occlusion or significant stenosis. Left: No aneurysm, occlusion or significant stenosis. Basilar Artery: No aneurysm, occlusion or significant stenosis. IMPRESSION: 1. No large vessel occlusion or significant stenosis on the CT angiography of the head. 2. No acute intracranial process. 3. No occlusion or significant stenosis on the CT angiography of the neck. RADIATION DOSE DELIVERED: 2,738.88mGy.cm Total DLP DATA REPOSITORY: All CT scans at this facility are submitted to the National Radiology Data Registry (NRDR) Dose Index Registry (DIR) with the [employer] ([employer]). RADIATION OPTIMIZATION: All CT scans at this facility use at least one of these dose optimization te chniques: automated exposure control; mA and/or kV adjustment per patient size (includes targeted exa ms where dose is matched to clinical indication); or iterative reconstruction.
--- NOTE | 2021-12-23 01:30 | W.ED.GENAD ---
Discharge Plan Disposition Patient Disposition: HOME Condition: Stable Discharge Details Clinical Impression: Facial paresthesia Primary Care Provider: Noel Burt ED Provider: Corbin Birch Home Meds and New Rx's Prescriptions: No Action No Known Home Meds Discharge Instructions Additional Instructions: your blood work and cat scan did not show concerning findings at this time follow up with your primary care provider as soon as possible if you feel more ill, have worsening weakness or changes in vision or speech return to the emergency department Medical Decision Making 36 yo male with no chronic medical problems comes in with an episode of slurred speech and having tremors in his hands. 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 He states he was feeling well all day and was at work and around 1130pm started to notice the left side of his face felt different and started to have slurring of his words and felt his hands were weak and started to shake. He denies loc, did have drooling, no tongue biting or urinary incontinence. He states this lasted about 4-5 minutes and resolved, arrives asymptomatic. He does note he has had two seizures in the past but they were years ago. He denies any fevers, chills, chest pain, headache, abdominal pain, drug or alcohol use. He arrives with normal gait, caox4 with clear speech, cnii-xii intact, no focal motor or sensation deficits, and nih of 0 so doubt cva especially since symptoms resolve. suspect this was a possible partial seizure and less likely tia. Will obtain cbc, cmp, and obtain ct/cta to further evaluate. pt stable, still no deficits on exam and no complaints. labs and imaging unremarkable. Discussed with patient. He does state he didn't eat much so is not sure if his sugar could have been low as he did drink juice and felt better. Discussed possiblity of seizure and less likely tia but that he should follow up with his pcp july. Advised to not drive or bathe/swim by himself as well until he follows up Differential Diagnosis Differential Diagnosis: tia, seizure, electrolyte abnormality Medical Records Medical records reviewed: Yes I reviewed the patient's medical records. Imaging Data Radiologic Study: Attestation: I personally reviewed and interpreted this imaging study as follows: Imaging: CT Scan Radiologist's impression: no acute findings Lab Data Lab results reviewed: Yes I reviewed the patient's lab results. ECG Data Attestation: I personally reviewed and interpreted this ECG (s) as follows: Prior ECG tracings: available for review Interpretation: sinus, rate of 89, pr 144, no acute st t wave ischemic findings HPI General Mode of arrival: ambulatory. Date/Time Provider Initiated Documentation: 12/23/21 01:05. Limitations to Documentation: no limitations. Information obtained by: patient. History of Present Illness 36 year old M presents to the emergency department with the chief complaint of slurred speech, described as moderate, Patient started experiencing this hour(s) (2) and it has been now resolved. No relieving factors improve symptom(s), No exacerbating factors reported . Patient did receive the following treatments prior to arrival, none Related Data Home Medications Medication Instructions Recorded Confirmed Unknown [No Known Home Meds] 09/12/21 09/12/21 Allergies Allergy/AdvReac Type Severity Reaction Status Date / Time diphenhydramine HCl Allergy Severe Anaphylaxsi Verified 12/23/21 02:33 [From Benadryl] s cefuroxime [From Ceftin] Allergy Mild Unverified 12/23/21 02:33 guaifenesin [From Robitussin] Allergy Unknown Unverified 12/23/21 02:33 ibuprofen [From Advil] Allergy Unknown Verified 12/23/21 02:33 Sulfa (Sulfonamide Allergy Unknown Verified 12/23/21 02:33 Antibiotics) NSAIDS (Non-Steroidal Allergy Swelling/Ed Unverified 12/23/21 02:33 Anti-Inflamma anisha red 40 Allergy Mild Hives Uncoded 12/23/21 02:33 General Stated Complaint: GenMedical KRIS: 3 Review of Systems All systems reviewed & are unremarkable except as noted in HPI and below Constitutional Constitutional: Denies chills and Denies fever(s) Cardiovascular Cardiovascular: Denies chest pain and Denies dyspnea Respiratory Respiratory: Denies cough and Denies dyspnea Gastrointestinal Gastrointestinal: Denies abdominal pain, Denies nausea and Denies vomiting Musculoskeletal Musculoskeletal: Denies joint swelling Integumentary/Breasts Skin/Breast: Denies rash PFSH All Active Problems Right ankle sprain (Acute) Acute bilateral ankle pain (Acute) Muscle strain, shoulder region (Acute) Facial paresthesia (Acute) Chest pain (Acute) Arm pain (Acute) Posterior tibial tendinitis, right leg (Acute) Sprain of right wrist (Acute) [place] teeth extracted (Acute) 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) Therapeutic drug monitoring (Acute) Lower back injury (Acute) Injury of neck (Acute) Low back strain (Acute) Snoring (Acute) Drowsy (Acute) Low back pain (Acute) Lumbago with sciatica (Acute) Pain in thoracic spine (Acute) Neck pain (Acute) Joint pain (Acute) Arthropathy (Acute) Gastritis (Acute) Pharyngitis (Acute) Developmental academic disorder (Acute) Nicotine dependence (Acute) Severe obesity (Acute) Obesity (Chronic) Right knee pain (Acute) Laceration of left foot with tendon involvement (Chronic) Status post extensor tendon repair left great toe DOS: 11/29/17 Medical History Chronic back pain Social History Smoking/Tobacco Use Status: Former Tobacco Use Smoking risk assessment performed?: Yes Alcohol Intake: current Alcohol Intake frequency: holidays/special occasions only Drug use: Never Substance use type: does not use Current gender identity: male Do you feel safe at home: Yes Do you feel safe in your relationship?: Yes Exam Const General: no acute distress Orientation: alert HENMT Head: normal to inspection Ears: external ears normal General nose exam: external nose normal Mouth: moist mucous membranes Eyes General: appearance normal, both eyes and all related structures Neck Neck: normal visual inspection Resp Effort & Inspection: normal respiratory effort and able to speak in complete sentences Cardio Rate: regular rate GI Palpation: soft and nontender Skin General skin exam: no rashes or lesions noted Neuro General: patient alert and patient oriented x3 Extrem General: normal to inspection Psych Mental Status: mental status grossly normal Course Vital Signs Vital signs: Vital Signs Temperature 36.7 C 12/23/21 01:13 Pulse 94 H 12/23/21 01:13 Respiratory Rate 15 12/23/21 01:13 Blood Pressure 150/87 H 12/23/21 01:13 Pulse Oximetry 97 12/23/21 01:13 Temperature 36.7 C 12/23/21 01:13 Temperature Source Oral 12/23/21 01:13 Pulse 94 H 12/23/21 01:13 Respiratory Rate 15 12/23/21 01:13 Blood Pressure 150/87 H 12/23/21 01:13 Blood Pressure Position Sitting 12/23/21 01:13 Pulse Oximetry 97 12/23/21 01:13 Oxygen Delivery Method Room Air 12/23/21 01:13 Oxygen Flow Rate 0 12/23/21 01:13 Pain Level 0 12/23/21 01:13
[2021-12-23] MEDS: Omnipaque 350 MG/ML 100 ML BTL IJ (01:43)
[2021-12-23] MEDS: Normal Saline Flush 10 ML SYR IVP (01:44)
[2021-12-23 01:48] LABS: Abs Immature Grans 0.02 10^3/uL (0.0-0.06); Absolute Basophil Count 0.06 10^3/uL (0.0-0.2); Absolute Eosinophil Count 0.29 10^3/uL (0.0-0.7); Absolute Lymphocyte Count 3.58 10^3/uL (1.2-3.4); Absolute Monocyte Count 0.59 10^3/uL (0.1-0.8); Absolute Neutrophil Count 6.26 10^3/uL (1.2-6.7); Basophils % 0.6; Eosinophils % 2.7; HCT 45.3 % (40.0-50.0); HGB 15.2 g/dL (13.5-17.5); Immature Grans % 0.2; Lymphocytes % 33.1; MCH 28.1 pg (27.0-33.0); MCHC 33.6 % (32.0-36.0); MCV 84 fL (80-95); MPV 8.9 fL (8.0-11.0); Monocytes % 5.5; Neutrophils % 57.9; Platelet Count 279 10^3/uL (130-400); RDW 12.8 % (11.8-14.1); RDW-SD 39.3 fL
[2021-12-23 02:09] LABS: ALT 29 U/L (16-63); AST 17 U/L (15-37); Albumin 3.8 g/dL (3.4-5.0); Alkaline Phosphatase 93 U/L (46-116); Anion Gap 10.4 mmol/L (3-11); BUN 14 mg/dL (7-18); Bilirubin, Total 0.5 mg/dL (0.2-1.0); CO2 26.6 mmol/L (21.0-32.0); CREATININE 1.1 mg/dL (0.70-1.30); Calcium 9.4 mg/dL (8.5-10.1); Chloride 103 mmol/L (98-107); Estimated GFR 89.78 (mL/min/1.73m2); Glucose 101 mg/dL (74-106); Potassium 3.9 mmol/L (3.5-5.1); Sodium 140 mmol/L (136-145); Total Protein 8.2 g/dL (6.4-8.2); Troponin I < 50 ng/L (<or=60)
--- NOTE | 2021-12-23 02:36 | DI.VRAD_ITS ---
PROCEDURE INFORMATION: Exam: CTA Head With Contrast, Arteriography Exam date and time: 12/23/2021 1:42 AM Age: 36 years old Clinical indication: Stroke-like symptoms; Dizziness / giddiness and speech disturbance; Slurred speech, hand weakness TECHNIQUE: Imaging protocol: Computed tomographic angiography of the head with contrast. Exam focused on the arteries. 3D rendering (Not supervised by radiologist): MIP and/or 3D reconstructed images were created by the technologist. Radiation optimization: All CT scans at this facility use at least one of these dose optimization techniques: automated exposure control; mA and/or kV adjustment per patient size (includes targeted exams where dose is matched to clinical indication); or iterative reconstruction. Contrast material: OMNIPAQUE 350; Contrast volume: 85 ml; Contrast route: INTRAVENOUS (IV); COMPARISON: CT HEAD WITHOUT CONTRAST 10/31/2016 11:02 PM FINDINGS: ANTERIOR CIRCULATION: Right internal carotid artery: Intracranial segment is patent with no significant stenosis. No aneurysm. Right middle cerebral artery: No occlusion or significant stenosis. No aneurysm. Right anterior cerebral artery: No occlusion or significant stenosis. No aneurysm. Left internal carotid artery: Intracranial segment is patent with no significant stenosis. No aneurysm. Left middle cerebral artery: No occlusion or significant stenosis. No aneurysm. Left anterior cerebral artery: No occlusion or significant stenosis. No aneurysm. POSTERIOR CIRCULATION: Right vertebral artery: No occlusion or significant stenosis. No aneurysm. Left vertebral artery: No occlusion or significant stenosis. No aneurysm. Basilar artery: No occlusion or significant stenosis. No aneurysm. Right posterior cerebral artery: No occlusion or significant stenosis. No aneurysm. Left posterior cerebral artery: No occlusion or significant stenosis. No aneurysm. Brain: No definite mass, mass effect, or midline shift. Cerebral ventricles: No ventriculomegaly. Bones/joints: Unremarkable. No acute fracture. Soft tissues: Unremarkable. IMPRESSION: 1. No acute intracranial findings on initial unenhanced images. 2. CTA head within normal limits. No large vessel occlusion. No aneurysm. PROCEDURE INFORMATION: Exam: CTA Neck With Contrast Exam date and time: 12/23/2021 1:42 AM Age: 36 years old Clinical indication: Stroke-like symptoms; Dizziness / giddiness and speech disturbance; Slurred speech, hand weakness TECHNIQUE: Imaging protocol: Computed tomographic angiography of the neck with contrast. 3D rendering (Not supervised by radiologist): MIP and/or 3D reconstructed images were created by the technologist. Radiation optimization: All CT scans at this facility use at least one of these dose optimization techniques: automated exposure control; mA and/or kV adjustment per patient size (includes targeted exams where dose is matched to clinical indication); or iterative reconstruction. Contrast material: OMNIPAQUE 350; Contrast volume: 85 ml; Contrast route: INTRAVENOUS (IV); COMPARISON: CT NECK WITH CONTRAST 10/31/2016 11:16 PM FINDINGS: Right common carotid artery: No stenosis. No dissection or occlusion. Right internal carotid artery: No stenosis of the extracranial segment. No dissection or occlusion. Right external carotid artery: No occlusion or stenosis of the origin. Left common carotid artery: No stenosis. No dissection or occlusion. Left internal carotid artery: No stenosis of the extracranial segment. No dissection or occlusion. Left external carotid artery: No occlusion or stenosis of the origin. Right vertebral artery: No stenosis. No dissection or occlusion. Left vertebral artery: No stenosis. No dissection or occlusion. Soft tissues: No significant soft tissue swelling. Bones/joints: No acute fracture. IMPRESSION: CTA neck within normal limits. No arterial dissection, arterial occlusion, or arterial stenosis. REFERENCES: NASCET CRITERIA. The degree of stenosis in the cervical segment of the internal carotid artery is based on NASCET criteria. Normal is no stenosis. Mild is less than 50% stenosis. Moderate is 50-69% stenosis. Severe is 70% to 99% stenosis. Total occlusion is no detectable patent lumen. Dictated and Authenticated by: Jimmie Coleman MD. Ordering:CAIN Alaniz MD
[2021-12-23 02:41] VITALS: RESP 20
[2021-12-23 02:49] VITALS: BP 128/83; PULSE 84; RESP 15; O2SAT 96
== END 2021-12-23 02:56 | disposition home or self-care (01) ==
PROVIDERS: Emergency Provider Emergency Medicine; PCP Physician Assistant
DX: R20.2 Paresthesia of skin (principal); R47.81 Slurred speech; R25.1 Tremor, unspecified
CPT/HCPCS: 70496; 70498; 80053; 93005; 99285; 84484; 85025; 93010; J3490

== ENCOUNTER 2022-09-20 14:36 | Emergency (ER) | payer MEDICAID, SELFPAY ==
[2022-09-20 14:42] VITALS: BP 129/87; PULSE 113; RESP 20; TEMP 36.7; O2SAT 94
--- NOTE | 2022-09-20 15:15 | DI.RAD_ITS ---
Exam(s) XR PELVIS AP XR FEMUR LT EXAM: XR PELVIS AP and XR femur LT CLINICAL HISTORY: left hip pain. TECHNIQUE: 2D digital imaging was performed. Seven views were obtained. COMPARISON: No priors for comparison. FINDINGS: BONES: No acute fracture is present. No bony destructive lesion is seen. JOINTS: No dislocation present. No joint space narrowing is present. The sacroiliac joints and symphy sis pubis are unremarkable. SOFT TISSUE: Normal. IMPRESSION: No acute abnormality of the pelvis or left femur. DATA REPOSITORY: RADIATION DOSE DELIVERED:
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
== END 2022-09-20 17:24 | disposition home or self-care (01) ==
PROVIDERS: Emergency Provider Student in an Organized Health Care Education/Training Program; PCP Physician Assistant
DX: M79.652 Pain in left thigh (principal); S70.12XA Contusion of left thigh, initial encounter; V03.99XA Pedestrian with other conveyance injured in collision with car, pick-up truck or van, unspecified whether traffic or nontraffic accident, initial encounter
CPT/HCPCS: 73552; 99284; 72170; 99283

== ENCOUNTER 2022-11-18 10:28 | Emergency (ER) | payer MEDICAID, SELFPAY ==
[2022-11-18 10:37] VITALS: BP 132/94; PULSE 90; RESP 18; O2SAT 100
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
[2022-11-18] MEDS: Clindamycin 150 MG CAP, 12 CAPS/BTL 450 MG PO (10:55)
--- NOTE | 2022-11-18 11:45 | NUR.NOTE ---
Dr. Ha, dental office called stating patient presented to them saying that he had a life threatening abscess and needed to go to [facility] to have it fixed. I entered this chart and read the discharge instructions word for word to them so that they are aware of what we found and offered to the patient and that he declined the procedure. They stated that they are going to refer him back to the ED. Nursing Note:
== END 2022-11-18 10:59 | disposition home or self-care (01) ==
LOC: ER 10:55
PROVIDERS: Emergency Provider Student in an Organized Health Care Education/Training Program; PCP Physician Assistant
DX: K04.7 Periapical abscess without sinus (principal)
CPT/HCPCS: 99283; 99284

== ENCOUNTER 2023-06-11 17:20 | Emergency (ER) | payer MEDICAID, SELFPAY ==
[2023-06-11 17:24] VITALS: BP 140/69; PULSE 102; RESP 30; TEMP 37.1; O2SAT 100
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
[2023-06-11] MEDS: Dexamethasone 10 MG/ML VIAL IVP (18:32)
[2023-06-11] MEDS: ACETAMINOPHEN 1,000 MG/100 ML BTL 400 MG IVPB (18:34)
[2023-06-11] MEDS: HYDROmorphone 2 MG/ML SYR 1 MG IVP ×3 (18:35→20:45)
[2023-06-11] MEDS: Normal Saline 1,000 ML 1000 ML IV (18:36)
[2023-06-11 18:46] LABS: Abs Immature Grans 0.05 10^3/uL (0.0-0.06); Absolute Basophil Count 0.06 10^3/uL (0.0-0.2); Absolute Eosinophil Count 0.19 10^3/uL (0.0-0.7); Absolute Lymphocyte Count 2.51 10^3/uL (1.2-3.4); Absolute Monocyte Count 0.53 10^3/uL (0.1-0.8); Absolute Neutrophil Count 9.52 10^3/uL (1.2-6.7); Basophils % 0.5; Eosinophils % 1.5; HCT 46.2 % (40.0-50.0); HGB 15.2 g/dL (13.5-17.5); Immature Grans % 0.4; Lymphocytes % 19.5; MCHC 32.9 % (32.0-36.0); MCV 85 fL (80-95); MPV 8.6 fL (8.0-11.0); Monocytes % 4.1; Platelet Count 296 10^3/uL (130-400); RBC 5.43 10^6/uL (4.36-5.78); RDW 13.2 % (11.8-14.1); RDW-SD 40.8 fL; WBC 12.86 10^3/uL (4.4-10.8)
--- NOTE | 2023-06-11 18:48 | NUR.NOTE ---
Nursing Note: this curriculum writer provided editorial director for rectal exam.
[2023-06-11 19:01] LABS: ALT 36 U/L (16-63); AST 18 U/L (15-37); Albumin 3.9 g/dL (3.4-5.0); Alkaline Phosphatase 106 U/L (46-116); Anion Gap 7.9 mmol/L (3-11); BUN 13 mg/dL (7-18); Bilirubin, Total 0.4 mg/dL (0.2-1.0); CO2 28.1 mmol/L (21.0-32.0); CREATININE 1.2 mg/dL (0.70-1.30); Calcium 9.4 mg/dL (8.5-10.1); Chloride 105 mmol/L (98-107); Estimated GFR 79.88 (mL/min/1.73m2); Glucose 133 mg/dL (74-106); Potassium 3.8 mmol/L (3.5-5.1); Sodium 141 mmol/L (136-145); Total Protein 8.1 g/dL (6.4-8.2)
[2023-06-11 19:52] VITALS: RESP 24; O2SAT 96
[2023-06-11 19:59] LABS: PTT Activated 24.6 sec (23.6-32.8); Prothrombin Time 9.8 sec (9.1-11.1)
== END 2023-06-11 20:37 | disposition short-term general hospital (02) ==
PROVIDERS: Emergency Provider Emergency Medicine
DX: G83.4 Cauda equina syndrome (principal); M47.816 Spondylosis without myelopathy or radiculopathy, lumbar region; Z87.891 Personal history of nicotine dependence
CPT/HCPCS: 36415; 80053; 96374; 96375; 96376; 99285; 85025; 85610; 85730; J0131; J1100; J1170

== ENCOUNTER 2023-11-01 19:23 | Emergency (ER) | payer MEDICAID, SELFPAY ==
[2023-11-01 19:30] VITALS: BP 149/94; PULSE 99; RESP 20; TEMP 37; O2SAT 98
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
[2023-11-01] MEDS: predniSONE 20 MG TAB 60 MG PO (20:18)
[2023-11-01] MEDS: diazePAM 10 MG/2 ML SYR 5 MG IM (20:18)
--- NOTE | 2023-11-01 20:35 | DI.CT_ITS ---
Exam(s) CT THORACIC LUMBAR SPINE WO EXAM: CT THORACIC LUMBAR SPINE WO CLINICAL HISTORY: Fall, Radiculopathy. TECHNIQUE: Imaging Protocol: Axial computed tomography images with coronal and sagittal reformatted images were created and reviewed. CONTRAST MATERIAL: Intravenous: None COMPARISON: Prior CT scan April 2021. FINDINGS: THORACIC SPINAL COLUMN: No evidence of fracture or listhesis nor disc space narrowing. Facet joints unremarkable. No facet malalignment. No acute compromise the spinal canal. No canal stenosis LUMBO SACRAL SPINAL COLUMN: No evidence of fracture nor listhesis. No pars defects. No significant facet arthropathy nor facet malalignment. Slight there is a small central subligamentous disc bulge at L5-S1 level. There is no central canal stenosis at this level. This does not impinge upon the thecal sac. This disc protrus ion does not extend into the exiting neural foramen. There is no foraminal stenosis on the left side . There is mild foraminal stenosis on the right side at this level which is related slight asymmetri c disc height loss on the right side. IMPRESSION: 1. No significant acute osseous findings in the thoracic and lumbar spinal column. 2. Chronic degenerative disc disease at L5-S1 level. There is mild central subligamentous disc bul ge at this level. No prominent central canal stenosis. Mild right-sided foraminal stenosis at this level noted. RADIATION DOSE DELIVERED: 4,182.39mGy.cm Total DLP DATA REPOSITORY: All CT scans at this facility are submitted to the National Radiology Data Registry (NRDR) Dose Index Registry (DIR) with the [employer] (ACR). RADIATION OPTIMIZATION: All CT scans at this facility use at least one of these dose optimization te chniques: automated exposure control; mA and/or kV adjustment per patient size (includes targeted exa ms where dose is matched to clinical indication); or iterative reconstruction.
[2023-11-01] MEDS: MORPHine 10 MG/ML VIAL 6 MG IM (20:43)
--- NOTE | 2023-11-01 21:49 | DI.VRAD_ITS ---
PROCEDURE INFORMATION: Exam: CT Thoracic Spine Without Contrast Exam date and time: 11/01/2023 8:19 PM Age: 38 years old Clinical indication: Injury or trauma; Blunt trauma (contusions or hematomas); Injury date: 11/01/23; Patient HX: Fall, lower back pain TECHNIQUE: Imaging protocol: Computed tomography of the thoracic spine without contrast. Radiation optimization: All CT scans at this facility use at least one of these dose optimization techniques: automated exposure control; mA and/or kV adjustment per patient size (includes targeted exams where dose is matched to clinical indication); or iterative reconstruction. COMPARISON: CT LUMBAR SPINE WO 04/15/2021 10:34 PM FINDINGS: Bones/joints: No acute fracture. Normal alignment. No significant disc bulge or herniation. No severe spinal canal stenosis. No significant neural foraminal narrowing. Soft tissues: Unremarkable. IMPRESSION: Unremarkable CT Spine. PROCEDURE INFORMATION: Exam: CT Lumbar Spine Without Contrast Exam date and time: 11/01/2023 8:19 PM Age: 38 years old Clinical indication: Injury or trauma; Blunt trauma (contusions or hematomas); Injury date: 11/01/23; Patient HX: Fall, lower back pain TECHNIQUE: Imaging protocol: Computed tomography of the lumbar spine without contrast. Radiation optimization: All CT scans at this facility use at least one of these dose optimization techniques: automated exposure control; mA and/or kV adjustment per patient size (includes targeted exams where dose is matched to clinical indication); or iterative reconstruction. COMPARISON: CT LUMBAR SPINE WO 04/15/2021 10:34 PM FINDINGS: Bones/joints: No acute fracture. Normal alignment. No significant disc bulge or herniation. No severe spinal canal stenosis. No significant neural foraminal narrowing. Soft tissues: Unremarkable. IMPRESSION: No acute findings. Dictated and Authenticated by: Donnie Wadsworth MD. Ordering:TERESA Ríos MD
[2023-11-01] MEDS: Lidocaine 5% Patch 1 PATCH TP (22:13)
[2023-11-01 22:27] LABS: Bilirubin Negative (Negative); Blood Negative (Negative); Clarity Clear (Clear); Glucose Negative (Negative); Ketones Negative (Negative); Leukocyte Esterase Negative (Negative); Nitrite Negative (Negative); Specific Gravity 1.025 (1.005-1.025); Urobilinogen 0.2 mg/dL (Up to 0.2)
== END 2023-11-01 22:10 | disposition home or self-care (01) ==
PROVIDERS: Emergency Provider Registered Nurse Emergency; PCP Family Medicine
DX: M54.50 Low back pain, unspecified (principal)
CPT/HCPCS: 96372; 99284; 72128; 72131; 81003; J2270; J3360; J7512

== ENCOUNTER 2024-02-27 18:44 | Emergency (ER) | payer MEDICAID, SELFPAY ==
[2024-02-27 18:49] VITALS: BP 160/88; PULSE 96; RESP 16; TEMP 36.6; O2SAT 97
--- NOTE | 2024-02-27 19:15 | DI.CT_ITS ---
Exam(s) CT FACIAL W EXAM: CT FACIAL W CLINICAL HISTORY: right facial swelling, ttp below eye, dental infec. TECHNIQUE: Imaging Protocol: Axial computed tomography images with coronal and sagittal reformatted images were created and reviewed CONTRAST MATERIAL: Intravenous: Omnipaque 350 Contrast volume:100 ml contrast route:IV - COMPARISON: CT CT BRAIN NECK CTA from 12/23/2021 FINDINGS: Facial Bones: No fracture is noted in the facial bones. Sinuses and Mastoids: Partial opacification of the right maxillary sinus. Globes, extraocular muscles, optic nerves and retrobulbar fat: Normal. Upper aerodigestive tract: Normal. Dental: Multiple dental caries. Periapical lucencies are noted in the mandible and maxilla may repre sent periapical abscesses. lucency measuring 10 millimeters in the anterior right maxilla. Bilateral temporomandibular joints: Normal. Soft tissues: No evidence of abscess. Visualized portions of the brain: Unremarkable. IMPRESSION: Multiple dental caries. Periapical lucencies in both mandible and maxilla, the largest in the right anterior maxilla which shows significant cortical destruction. No drainable soft tissue abscess.. RADIATION DOSE DELIVERED: 1,168.11mGy.cm Total DLP DATA REPOSITORY: All CT scans at this facility are submitted to the National Radiology Data Registry (NRDR) Dose Index Registry (DIR) with the [employer] (ACR). RADIATION OPTIMIZATION: All CT scans at this facility use at least one of these dose optimization te chniques: automated exposure control; mA and/or kV adjustment per patient size (includes targeted exa ms where dose is matched to clinical indication); or iterative reconstruction.
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
[2024-02-27] MEDS: oxyCODONE 10 MG TAB PO (19:37)
[2024-02-27] MEDS: ACETAMINOPHEN 1,000 MG/100 ML BAG 400 MG IVPB (19:38)
[2024-02-27] MEDS: CLINDAMYCIN 600 MG/50 ML BAG 100 MG IVPB (19:58)
[2024-02-27] MEDS: Omnipaque 350 MG/ML 100 ML BTL IJ (20:04)
[2024-02-27] MEDS: Normal Saline - Diluent 50 ML VIAL IJ (20:05)
[2024-02-27] MEDS: Normal Saline Flush 10 ML SYR IVP (20:06)
--- NOTE | 2024-02-27 21:24 | DI.[facility]_ITS ---
PROCEDURE INFORMATION: Exam: CT Maxillofacial With Contrast Exam date and time: 02/27/2024 8:02 PM Age: 38 years old Clinical indication: Maxilla pain; Prior surgery; Surgery date: 6+ months; Surgery type: [place] teeth; Patient HX: Right facial swelling, ttp below eye, dental infec TECHNIQUE: Imaging protocol: Computed tomography of the face with contrast. Radiation optimization: All CT scans at this facility use at least one of these dose optimization techniques: automated exposure control; mA and/or kV adjustment per patient size (includes targeted exams where dose is matched to clinical indication); or iterative reconstruction. Contrast material: OMNIPAQUE 350; Contrast volume: 100 ml; Contrast route: INTRAVENOUS (IV); COMPARISON: CT BRAIN NECK CTA 12/23/2021 1:42 AM FINDINGS: Paranasal sinuses: Mucoperiosteal thickening in the right maxillary sinus may represent sinusitis Orbital cavities: Orbits are normal. Globes are unremarkable. Teeth: Periapical lucencies in the maxilla and mandible may represent periapical abscess. Multiple caries of teeth in the maxilla and mandible. Bones: Large lucency in the right maxilla 10 x 10 mm series 2, image 87 . Bone loss may indicate osteomyelitis in this region. Soft tissues: Unremarkable. Other findings: No drainable fluid collection. IMPRESSION: 1. Periapical lucencies in the maxilla and mandible may represent periapical abscess. 2. Large lucency in the right maxilla 10 x 10 mm series 2, image 87 . Bone loss may indicate osteomyelitis in this region. 3. Multiple caries of teeth in the maxilla and mandible. 4. No drainable fluid collection. Dictated and Authenticated by: Cindy Martin MD. Ordering:ZARINA Rothman MD
[2024-02-27 21:47] VITALS: BP 171/111; PULSE 96; O2SAT 95
[2024-02-27] MEDS: Clindamycin 150 MG CAP, 12 CAPS/BTL 450 MG PO (21:56)
== END 2024-02-27 21:59 | disposition left against medical advice (07) ==
PROVIDERS: Emergency Provider Student in an Organized Health Care Education/Training Program; PCP Family Medicine
DX: K02.9 Dental caries, unspecified; Z53.29 Procedure and treatment not carried out because of patient's decision for other reasons; K04.7 Periapical abscess without sinus
CPT/HCPCS: 96365; 96366; 96367; 99285; 70487; 99284; J0131; J0737; J3490

== ENCOUNTER 2024-07-07 18:07 | Emergency (ER) | payer MEDICAID, SELFPAY ==
[2024-07-07] VITALS (46 sets, daily range): BP systolic 110–152; BP diastolic 58–96; PULSE 77–104; RESP 6–27; TEMP 36.7; O2SAT 90–98
--- NOTE | 2024-07-07 18:30 | RT.EKG_ITS ---
APPROVED REPORT Exam: Resting ECG Reason for Exam: sternal pain Patient Location: E HR:86 bpm ECG Measurements Heart Rate 86 AXIS IA 143 P 33 QRSd 105 QRS 44 QT 360 T 24 QTc 430 Conclusion Sinus rhythm, rate 86 No interval abnormalities No STEMI Q wave and T wave inversion lead III, new from prior
--- NOTE | 2024-07-07 18:30 | DI.CT_ITS ---
Exam(s) CT CHEST/ABD/PEL W CT THORACIC LUMBAR SPINE REC EXAM: CT CHEST/ABD/PEL W CLINICAL HISTORY: Fall 12 feet, neck/back pain, numbness. TECHNIQUE: Imaging Protocol: Axial computed tomography images with coronal and sagittal reformatted images were created and reviewed. Computer aided detection (CAD) was utilized. CONTRAST MATERIAL: Intravenous: Omnipaque 350 Contrast volume:100 ml Oral: / no COMPARISON: CT CT THORAX ABD/PEL CTA from 05/18/[address] BRAIN NECK CTA from 12/23/[address] THORACIC LUMBAR SPINE WO from 11/01/[address] THORACIC LUMBAR SPINE REC from 07/07/2024 FINDINGS: CHEST: There is artifact related to patient body habitus and arm positioning. The patient's was not able to raise his arms. Pulmonary parenchyma: No consolidation. No dominant measurable mass. Tracheobronchial tree: No bronchiectasis. No mucous plugging.No bronchial wall thickening. Pleura: No effusion or pneumothorax. Mediastinum: Within normal limits. Pulmonary arteries: No visible emboli. Cardiovascular: No pericardial effusion. Thoracic aorta non-dilated. Bones: Unremarkable for age. No lytic or blastic lesions.No spinal compression fractures or rib fra ctures. Soft tissues: Unremarkable. ABDOMEN and PELVIS: Liver: Normal density. No suspicious mass. Gallbladder and biliary tract: No evidence of stones or wall thickening. No biliary dilatation. Pancreas: Normal density, no abnormal calcifications or inflammatory process. Spleen: Normal. Kidneys: Normal size, contour and axis. No radiodense stones. No obstructive uropathy. No suspicious masses seen. Adrenal glands: No masses seen. Aorta: Abdominal portion non-dilated. Lymph nodes: Within normal limits. Soft tissues: Unremarkable. Bladder: Unremarkable. Bowel: No obstruction or bowel wall thickening. Duodenal diverticulum. Appendix normal. Normal pablo tity of stool. Peritoneal cavity: No ascites. No focal collection. No mesenteric inflammatory response. No free ai r. Bones: Unremarkable for age. No evidence of pelvic or lumbar spine fracture. Reproductive organs: Unremarkable for age. IMPRESSION: No acute abnormality in the chest, abdomen or pelvis. No evidence of thoracic or lumbar spine fractures. The preliminary [facility] report was reviewed. RADIATION DOSE DELIVERED: Total DLP DATA REPOSITORY: All CT scans at this facility are submitted to the National Radiology Data Registry (NRDR) Dose Index Registry (DIR) with the [employer] [place] [employer] (ACR). RADIATION OPTIMIZATION: All CT scans at this facility use at least one of these dose optimization te chniques: automated exposure control; mA and/or kV adjustment per patient size (includes targeted exa ms where dose is matched to clinical indication); or iterative reconstruction.
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
[2024-07-07 18:43] LABS: Abs Immature Grans 0.03 10^3/uL (0.0-0.06); Absolute Basophil Count 0.05 10^3/uL (0.0-0.2); Absolute Lymphocyte Count 3.33 10^3/uL (1.2-3.4); Absolute Monocyte Count 0.56 10^3/uL (0.1-0.8); Basophils % 0.4 %; Eosinophils % 3.1 %; HCT 46.7 % (40.0-50.0); HGB 15.6 g/dL (13.5-17.5); Immature Grans % 0.3 %; Lymphocytes % 29.1 %; MCH 27.6 pg (27.0-33.0); MCHC 33.4 % (32.0-36.0); MCV 83 fL (80-95); MPV 8.7 fL (8.0-11.0); Monocytes % 4.9 %; Neutrophils % 62.2 %; Platelet Count 319 10^3/uL (130-400); RBC 5.65 10^6/uL (4.36-5.78); RDW 12.7 % (11.8-14.1); RDW-SD 38.4 fL; WBC 11.44 10^3/uL (4.4-10.8)
[2024-07-07] MEDS: HYDROmorphone 2 MG/ML SYR 1 MG IVP ×3 (18:44→20:05)
[2024-07-07] MEDS: Ondansetron 4 MG/2 ML VIAL IVP (18:44)
[2024-07-07 18:45] LABS: Absolute Eosinophil Count 0.35 10^3/uL (0.0-0.7); Absolute Neutrophil Count 7.12 10^3/uL (1.2-6.7)
[2024-07-07] MEDS: Omnipaque 350 MG/ML 100 ML BTL IJ (18:53)
[2024-07-07] MEDS: Normal Saline - Diluent 50 ML VIAL IJ (18:53)
[2024-07-07 19:00] LABS: Prothrombin Time 9.9 sec (9.1-11.1)
--- NOTE | 2024-07-07 19:03 | DI.CT_ITS ---
Exam(s) CT HEAD CERVICAL SPINE WO EXAM: CT HEAD CERVICAL SPINE WO CLINICAL HISTORY: Fall 12 feet, neck/back pain, numbness. TECHNIQUE: Imaging Protocol: Axial computed tomography images with coronal and sagittal reformatted images were created and reviewed COMPARISON: CT HEAD WITHOUT CONTRAST from 10/31/[address] FACIAL W from 02/27/2024 FINDINGS: Head CT Ventricles and Extra axial spaces: Normal in size and morphology for the patient's age. Hemorrhage: None. Cerebral parenchyma: No evidence of mass or acute infarct. Midline shift: None. Brainstem/Cerebellum: Normal. Calvarium: Normal. Visualized Paranasal sinuses/Mastoids: Clear. Soft tissues: Unremarkable. Cervical Spine CT There is artifact related to patient body habitus. BONES: Vertebral body heights are maintained. Alignment is normal. There is no evidence of acute frac ture. No significant degenerative disc changes and facet degenerative changes are seen . SOFT TISSUES: No paraspinal hematoma. The airway appears intact. No pneumothorax is seen at the lung apices. IMPRESSION: Head CT: No acute abnormality. C-spine CT: No acute abnormality. The preliminary [facility] report was reviewed. RADIATION DOSE DELIVERED: Total DLP DATA REPOSITORY: All CT scans at this facility are submitted to the National Radiology Data Registry (NRDR) Dose Index Registry (DIR) with the [employer] (ACR). RADIATION OPTIMIZATION: All CT scans at this facility use at least one of these dose optimization te chniques: automated exposure control; mA and/or kV adjustment per patient size (includes targeted exa ms where dose is matched to clinical indication); or iterative reconstruction.
--- NOTE | 2024-07-07 19:07 | DI.VRAD_ITS ---
PROCEDURE INFORMATION: Exam: CT Head Without Contrast Exam date and time: 07/07/2024 6:38 PM Age: 39 years old Clinical indication: Other: Fall 12 ft, neck/back pain, numbness TECHNIQUE: Imaging protocol: Computed tomography of the head without contrast. COMPARISON: CT BRAIN NECK CTA 12/23/2021 1:42 AM FINDINGS: Brain: Normal. No hemorrhage. Unremarkable white matter. No mass effect. Cerebral ventricles: No ventriculomegaly. Paranasal sinuses: Visualized sinuses are unremarkable. No fluid levels. Mastoid air cells: Visualized mastoid air cells are well aerated. Bones: Unremarkable. No acute fracture. Soft tissues: Unremarkable. IMPRESSION: No evidence for acute intracranial abnormality. PROCEDURE INFORMATION: Exam: CT Cervical Spine Without Contrast Exam date and time: 07/07/2024 6:38 PM Age: 39 years old Clinical indication: Other: Fall 12 ft, neck/back pain, numbness TECHNIQUE: Imaging protocol: Computed tomography of the cervical spine without contrast. COMPARISON: CT BRAIN NECK CTA 12/23/2021 1:42 AM FINDINGS: Bones: No acute fracture. Normal alignment. No significant disc bulge or herniation. No severe spinal canal stenosis. No significant neural foraminal narrowing. Lungs: Lung apices are normal. Soft tissues: Unremarkable. IMPRESSION: No evidence for acute posttraumatic abnormality. Dictated and Authenticated by: Tonja Dumas MD. Orderin [address] MD
[2024-07-07 19:08] LABS: ALT 29 U/L (16-63); AST 18 U/L (15-37); Albumin 3.8 g/dL (3.4-5.0); Alkaline Phosphatase 112 U/L (46-116); Anion Gap 7.8 mmol/L (3-11); BUN 8 mg/dL (7-18); Bilirubin, Total 0.6 mg/dL (0.2-1.0); CO2 27.2 mmol/L (21.0-32.0); CREATININE 1.1 mg/dL (0.70-1.30); Calcium 9.4 mg/dL (8.5-10.1); Chloride 103 mmol/L (98-107); Estimated GFR 88.12 (mL/min/1.73m2); Glucose 103 mg/dL (74-106); Magnesium 2.2 mg/dL (1.8-2.4); Sodium 138 mmol/L (136-145)
[2024-07-07 19:10] LABS: Troponin I < 4 ng/L (<or=76)
[2024-07-07 19:18] LABS: ETHANOL BLOOD < 3.0 mg/dL (<10)
--- NOTE | 2024-07-07 19:25 | DI.VRAD_ITS ---
PROCEDURE INFORMATION: Exam: CT Chest With Contrast; Diagnostic Exam date and time: 07/07/2024 6:49 PM Age: 39 years old Clinical indication: Other: Fall 12 feet, neck/back pain, numbness TECHNIQUE: Imaging protocol: Diagnostic computed tomography of the chest with contrast. Contrast material: OMNIPAQUE 350; Contrast volume: 100 ml; Contrast route: INTRAVENOUS (IV); COMPARISON: CT THORAX ABD/PEL CTA 05/18/2020 9:11 PM FINDINGS: Lungs: Unremarkable. No consolidation. No masses. Pleural spaces: Unremarkable. No pneumothorax. No pleural effusion. Heart: Unremarkable. No cardiomegaly. No pericardial effusion. Lymph nodes: Unremarkable. No enlarged lymph nodes. Vasculature: Unremarkable. No aortic aneurysm. Bones/joints: Unremarkable. No acute fracture. Soft tissues: Unremarkable. IMPRESSION: No evidence for acute posttraumatic abnormality. PROCEDURE INFORMATION: Exam: CT Abdomen And Pelvis With Contrast Exam date and time: 07/07/2024 6:49 PM Age: 39 years old Clinical indication: Other: Fall 12 feet, neck/back pain, numbness TECHNIQUE: Imaging protocol: Computed tomography of the abdomen and pelvis with contrast. Contrast material: OMNIPAQUE 350; Contrast volume: 100 ml; Contrast route: INTRAVENOUS (IV); COMPARISON: CT THORAX ABD/PEL CTA 05/18/2020 9:11 PM FINDINGS: Liver: Normal. No mass. Gallbladder and biliary ducts: Normal. No calcified stones. No ductal dilation. Pancreas: Normal. No ductal dilation. Spleen: Normal. No splenomegaly. Adrenal glands: Normal. No mass. Kidneys and ureters: Normal. No hydronephrosis. Stomach and bowel: Incidental note made of duodenal diverticulum. No obstruction. No mucosal thickening. Appendix: No evidence of appendicitis. Intraperitoneal space: Unremarkable. No free air. No significant fluid collection. Vasculature: Unremarkable. No abdominal aortic aneurysm. Lymph nodes: Unremarkable. No enlarged lymph nodes. Urinary bladder: Unremarkable as visualized. Reproductive: Unremarkable as visualized. Bones/joints: Mild lower lumbar spondylosis. Soft tissues: Unremarkable. IMPRESSION: No evidence for acute posttraumatic abnormality. Dictated and Authenticated by: Tonja Dumas MD. Orderin [address] MD
--- NOTE | 2024-07-07 19:37 | DI.VRAD_ITS ---
PROCEDURE INFORMATION: Exam: CT Thoracic Spine Without Contrast Exam date and time: 07/07/2024 6:49 PM Age: 39 years old Clinical indication: Other: Fall 12 feet, neck/back pain, numbness TECHNIQUE: Imaging protocol: Computed tomography of the thoracic spine without contrast. COMPARISON: CT THORACIC LUMBAR SPINE WO 11/01/2023 8:19 PM FINDINGS: Bones/joints: No acute fracture. Normal alignment. No significant disc bulge or herniation. No severe spinal canal stenosis. No significant neural foraminal narrowing. Soft tissues: Unremarkable. IMPRESSION: No evidence for fracture. PROCEDURE INFORMATION: Exam: CT Lumbar Spine Without Contrast Exam date and time: 07/07/2024 6:49 PM Age: 39 years old Clinical indication: Other: Fall 12 feet, neck/back pain, numbness TECHNIQUE: Imaging protocol: Computed tomography of the lumbar spine without contrast. COMPARISON: CT THORACIC LUMBAR SPINE WO 11/01/2023 8:19 PM FINDINGS: Bones/joints: No acute fracture. Normal alignment. No significant disc bulge or herniation. No severe spinal canal stenosis. No significant neural foraminal narrowing. Soft tissues: Unremarkable. IMPRESSION: No evidence for acute posttraumatic abnormality. Dictated and Authenticated by: Tonja Dumas MD. Orderin [address] MD
[2024-07-07 20:47] LABS: Bilirubin Negative (Negative); Blood Negative (Negative); Clarity Clear (Clear); Glucose Negative (Negative); Ketones Negative (Negative); Leukocyte Esterase Negative (Negative); Nitrite Negative (Negative); Specific Gravity 1.015 (1.005-1.025); Urobilinogen 0.2 mg/dL (Up to 0.2)
[2024-07-07 21:13] LABS: *AMPHETAMINES SCREEN URINE Negative (Negative); *BARBITURATES SCREEN URINE Negative (Negative); *BENZODIAZEPINES SCREEN URINE Negative (Negative); Cannabinoids THC Negative (Negative); Cocaine Screen,Urine Negative (Negative); METHADONE URINE SCREEN Negative (Negative); OPIATES URINE SCREEN Positive (Negative)
[2024-07-07 21:15] LABS: Tricyclic Antidepressants Negative (Negative)
[2024-07-08] VITALS (47 sets, daily range): BP systolic 101–143; BP diastolic 44–90; PULSE 73–97; RESP 7–24; O2SAT 87–99
[2024-07-08] MEDS: HYDROmorphone 2 MG/ML SYR 1 MG IVP ×4 (00:47→06:54)
[2024-07-08] MEDS: Ondansetron 4 MG/2 ML VIAL IVP (05:41)
--- NOTE | 2024-07-08 06:44 | ED.PROG_ITS ---
Date of service: 07/08/24 Time of Service: 06:44 Medical Decision Making Patient was signed out to me pending transfer availability at 7 AM for ED to ED transfer. Transfer was already accepted by [facility], we are just waiting on transport itself. Patient remained stable throughout the night. He was notably noncompliant with request for him to maintain neck stability. He was not amendable to wearing a c-collar. He required multiple redosing's of IV narcotic medication. He also demanded eggs and toast in the morning to eat, however we have asked to hold off on this for the time being out of concern for potential n.p.o. status post MRI. Otherwise patient has remained stable. He will be transferred to [facility] at this time At time of transfer the patient was reassessed and continued to demonstrate No signs of acute respiratory distress requiring intubation, hemodynamic instability requiring pressor support, or rapidly declining mental status. Quality:[facility] Health Related Social Needs: No Data to Display Discharge Plan Disposition Patient Disposition: Transfer-Acute Inpatient Care Specific Acute Inpt Facility: [facility] Condition: Fair Discharge Details Clinical Impression: Fall from building, Paresthesia and pain of right extremity, Acute neck pain, Back pain Primary Care Provider: Percy Blanchard ED Provider: Allan Cortez Home Meds and New Rx's Prescriptions: No Action albuterol sulfate 90 mcg/actuation HFA aerosol inhaler 2 puff inhalation Q6H PRN acetaminophen [Tylenol Arthritis Pain] 650 mg tablet extended release 650 mg PO Q8H oxycodone 10 mg tablet 10 mg PO Q6H PRN Patient Comments: TAKE 1 TABLET BY MOUTH EVERY 6 HOURS NEEDED FOR SEVERE PAIN *MAX 4 DAILY*
[2024-07-08] MEDS: HYDROmorphone 2 MG/ML SYR ×3 (07:28→08:26)
== END 2024-07-08 07:22 | disposition short-term general hospital (02) ==
PROVIDERS: Emergency Medicine; Emergency Provider Student in an Organized Health Care Education/Training Program; PCP Family Medicine
DX: M54.2 Cervicalgia; M54.9 Dorsalgia, unspecified; W17.89XA Other fall from one level to another, initial encounter; R20.2 Paresthesia of skin
CPT/HCPCS: 99285 ×2; 96374; 96375; 96376 ×2; 36415; 00123; 74177; 80053; 80307; 86850; 86900; 86901; 93005; 70450; 71260; 72125; 80320; 81003; 83735; 84484; 85025; 85610; 93010; J1171; J2405; J3490

== ENCOUNTER 2024-07-12 14:20 | Inpatient (IN) | payer MEDICAID, SELFPAY ==
--- NOTE | 2024-07-12 11:43 | W.PC.ACHO ---
Registration Status: Primary Language: Preferred Language: Medical / Surgical History (Last Reviewed 11/01/23 @ 20:04 by Khushbu Stauffer NP) TBI (traumatic brain injury) Developmental academic disorder Closed head injury Morbid obesity Asthma, intermittent Pre-diabetes Anxiety disorder Chronic back pain Allergies cefuroxime (From Ceftin) Allergy (Severe, Verified 07/07/24 18:20) Anaphylaxis diphenhydramine HCl (From Benadryl) Allergy (Severe, Verified 07/07/24 18:20) Anaphylaxsis guaifenesin (From Robitussin) Allergy (Severe, Verified 07/07/24 18:20) Anaphylaxis ibuprofen (From Advil) Allergy (Severe, Verified 07/07/24 18:20) Anaphylaxis Sulfa (Sulfonamide Antibiotics) Allergy (Severe, Verified 07/07/24 18:20) Anaphylaxis NSAIDS (Non-Steroidal Anti-Inflamma Allergy (Verified 07/07/24 18:20) Swelling/Edema red 40 Allergy (Mild, Uncoded 07/07/24 18:20) Hives v v v v v v v v v Sending and/or Receiving Nurses: Please use comment section below to note any information pertinent to the patient hand-off not included above. Information / Comments: Pt reported to be AOx3, VSS, RA. C/o back pain, IV dilaudid q3h for pain control with good effect. awaiting for pt Report received from: Justyna BENITO
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
[2024-07-12 17:16] VITALS: BP 155/91; PULSE 87; RESP 12; TEMP 36; O2SAT 98
[2024-07-12] MEDS: Enoxaparin 40 MG/0.4 ML SYR SC (17:34)
[2024-07-12] MEDS: HYDROmorphone 2 MG/ML SYR IVP ×2 (17:34→21:10)
[2024-07-12 20:35] VITALS: BP 146/82; PULSE 94; RESP 20; TEMP 36.3; O2SAT 96
[2024-07-12] MEDS: Acetaminophen 500 MG TAB 1000 MG PO (20:55)
[2024-07-12] MEDS: Sennosides/Docusate Sodium TAB 1 TAB PO (20:55)
[2024-07-13] MEDS: HYDROmorphone 2 MG/ML SYR IVP ×6 (00:18→18:36)
[2024-07-13] MEDS: Acetaminophen 500 MG TAB 1000 MG PO ×3 (07:15→20:04)
[2024-07-13] MEDS: Sennosides/Docusate Sodium TAB 1 TAB PO (07:15)
[2024-07-13 07:44] VITALS: BP 129/87; PULSE 73; RESP 16; TEMP 36.8; O2SAT 95
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
[2024-07-13 10:40] LABS: HCT 41.7 % (40.0-50.0); HGB 13.8 g/dL (13.5-17.5); MCH 27.7 pg (27.0-33.0); MCHC 33.1 % (32.0-36.0); MCV 84 fL (80-95); MPV 8.9 fL (8.0-11.0); Platelet Count 230 10^3/uL (130-400); RBC 4.99 10^6/uL (4.36-5.78); RDW 12.8 % (11.8-14.1); RDW-SD 38.6 fL; WBC 7.43 10^3/uL (4.4-10.8)
[2024-07-13 10:49] LABS: Anion Gap 5.8 mmol/L (3-11); BUN 14 mg/dL (7-18); CO2 31.2 mmol/L (21.0-32.0); CREATININE 0.8 mg/dL (0.70-1.30); Calcium 9.4 mg/dL (8.5-10.1); Chloride 101 mmol/L (98-107); Estimated GFR 116.17 (mL/min/1.73m2); Glucose 125 mg/dL (74-106); Potassium 3.7 mmol/L (3.5-5.1); Sodium 138 mmol/L (136-145)
[2024-07-13] MEDS: oxyCODONE 10 MG TAB PO (12:22)
--- NOTE | 2024-07-13 12:50 | IN_ITS ---
PT Notes Visit Reasons: Intractable Pain, Spinal Contusion Inpatient Physical Therapy Evaluation Date: 07/13/2024 Referring Doctor: Dr. Campo PT Orders: PT CONSULT: fall with pulmonary contusion Precautions: intractable pain Patient Profile/Admitting Diagnosis: intractable pain, spinal contusion PMHX: TBI in 2013, wasn't able to walk for about 6 months - per patient Social History/Home Situation: Lives in [place] with his and 2 dogs Current Functional Limitations: normally fully independent Equipment Owned/DME: has a walker from TBI Subjective: Pt states he fell about 14 ft onto his back and head on Tuesday. He did not want to go to the hospital at first but his friends made him. He states he lives with his in [place]. He normally is fully independent. He drives. 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 He has a ramp to enter his home. Objective: General Observation: sitting up at EOB, seems comfortable Mental Status: A+Ox4 Pain: Describes pain throughout his body Vital Signs: monitored by nursing ROM: Limited UE flexion and abduction bilaterally as he is only able to raise his arms to 90 degrees Strength: 3/5 observed throughout bilateral LEs with movements - unable to hold against any resistance, unsure if this is due to pain, fear, or weakness Bed Mobility/Transfers: sit to stand w/CGA stand to sit w/CGA stand pivot w/CGA Gait: ambulates 30 ft w/RW and CGA, needed multiple rest breaks and needed some cues to breath throughout, he did experience significant leg fatigued but was educated on how to use the RW to decrease pressure on his legs Balance: able to perform static stance w/o UE support Special Tests: Mobility Limitations Standardized Measure [facility] AM-PAC 6 clicks Basic Mobility Inpatient Short Form: Raw Score: 14 CMS Score: 61.29 Informed Consent/Education: Patient instructed in purpose of PT consult and plan of care. Assessment: Patient is currently below his baseline functional levels as he requires a RW for mobility. He is likely mostly limited due to pain. He did not have much strength during MMTs today but this may be due to pain and fear with movement. He did fatigue very quickly with ambulation but he has a ramp and a RW already at home. He has a supportive that will be able to help him manage his home. It is recommended he be d/c'd home with an outpatient PT referral. He is safe to be d/c'd home when medically cleared with the support of his family. Patient is assessed as a Low 52704 complexity based on the following: History: Low Examination: Low Presentation: Low Decision Making: Low Goals: Goals X1 week 1. Supine-Sit w/SBA 2. Sit-Supine w/SBA 3. Sit-Stand w/SBA 4. Stand-Sit w/SBA 5. Gait - ambulates >100 ft w/RW and CGA Plan of Care/Treatment Plan: 1-2x/day, 7 days/week x 1 week. Plan of care has been reviewed with the WEB APPLICATION DEVELOPER providing the service under Physical Therapy direction. Initiate Physical Therapy intervention for strengthening, bed mobility, transfers, gait, stairs, balance training, use of assistive device. DISCHARGE RECOMMENDATIONS: [x] Home with outpatient PT TREATMENT CODE/TIME: Bulmaro raines x1 - [id number] - 27 min
--- NOTE | 2024-07-13 13:07 | PHA.REVIEW2 ---
Pharmacy Admission Review Admission Clinical Review Admission Pharmacy Review: DVT prophylaxis (Acute) Chronic, continuous use of opioids (Acute) Intractable pain (Acute) Contusion of cervical spinal region (Acute) cefuroxime (From Ceftin) Allergy (Severe, Verified 07/07/24 18:20) Anaphylaxis diphenhydramine HCl (From Benadryl) Allergy (Severe, Verified 07/07/24 18:20) Anaphylaxsis guaifenesin (From Robitussin) Allergy (Severe, Verified 07/07/24 18:20) Anaphylaxis ibuprofen (From Advil) Allergy (Severe, Verified 07/07/24 18:20) Anaphylaxis Sulfa (Sulfonamide Antibiotics) Allergy (Severe, Verified 07/07/24 18:20) Anaphylaxis NSAIDS (Non-Steroidal Anti-Inflamma Allergy (Verified 07/07/24 18:20) Swelling/Edema red 40 Allergy (Mild, Uncoded 07/07/24 18:20) Hives Resuscitation Status Full Code Height 5 ft 9 in Weight 168.963 kg Pharmacy Admission Review Renal Dosing Renal Dosing: BUN 14 mg/dL (7-18) 07/13/24 10:10 Creatinine 0.8 mg/dL (0.70-1.30) 07/13/24 10:10 Medications needing adjustments: Reviewed (CrCl 194.8 mL/min) Anticoagulation Anticoagulation: Hgb 13.8 g/dL (13.5-17.5) 07/13/24 10:10 Hct 41.7 % (40.0-50.0) 07/13/24 10:10 Plt Count 230 10^3/uL (130-400) 07/13/24 10:10 Creatinine 0.8 mg/dL (0.70-1.30) 07/13/24 10:10 DVT Prophylaxis: Intervened (Asked provider about changing dose to 60mg BID due to BMI > 50. Per provider will have nurse get new weight and go from there) Medications: Enoxaparin (40mg daily) Opiate Usage Evaluate Pain Scale/Pains Meds: Reviewed (hydromorphone IVP q3h PRN - 10mg/24hrs, oxycodone 10mg q4h PRN - 10mg/24hrs) Scheduled Bowel Reg ordered if on Opiates?: Yes (Senna/docusate BID) Relevant Labs Relevant Labs: Sodium 138 mmol/L (136-145) 07/13/24 10:10 Potassium 3.7 mmol/L (3.5-5.1) 07/13/24 10:10 Chloride 101 mmol/L (98-107) 07/13/24 10:10 Electrolytes, C-Reactive P, ESR: Reviewed Cardiac Review BP, HR, EF%: Reviewed (BP and HR WNL) QTc Review QTc: Reviewed (430 from 07/07/24) IV to PO Switch IV Medications: Reviewed (hydromorphone) Home Meds Home Med List reviewed: Reviewed Relevent Home Meds Not ordered & why?: albuterol (PRN) and triamcinolone cream (PRN) Current Meds Current Medication Order Review: Intervened Comments: Added IV admission order set
--- NOTE | 2024-07-13 14:29 | CHAPLAIN ---
Allan was sitting up in bed, dressed in his own clothes, when I visited this afternoon. He said he taken a shower and didn't want to put a melani back on. He told me about his fall from a hayloft, about 14 feet and landing on a round hay bale that has been all winter, so wasn't soft. He ended up at [facility] in [place] and was treated for a contusion of the cervical spine. He's here for pain control and PT. Allan said he realizes how jaylyn he is to have survived the fall, and said he had a very peaceful moment after the fall when he thought he might have . He is looking forward to going home. He has two dogs he is missing very much. Allan said he may go home AMA this evening if he isn't discharged. He said he knows he needs more PT as he's not able to walk again yet. He's been using a walker.
[2024-07-13] MEDS: oxyCODONE 10 MG TAB 20 MG PO ×2 (15:40→20:03)
[2024-07-13] MEDS: Enoxaparin 40 MG/0.4 ML SYR SC (18:37)
[2024-07-13 18:45] VITALS: BP 143/95; PULSE 83; RESP 16; TEMP 36; O2SAT 97
[2024-07-14] MEDS: oxyCODONE 10 MG TAB 20 MG PO ×6 (00:08→22:25)
[2024-07-14] MEDS: HYDROmorphone 2 MG/ML SYR IVP ×5 (00:42→20:34)
[2024-07-14] MEDS: Sennosides/Docusate Sodium TAB 1 TAB PO (07:31)
[2024-07-14] MEDS: Acetaminophen 500 MG TAB 1000 MG PO ×3 (07:31→20:34)
[2024-07-14 09:05] VITALS: BP 126/81; PULSE 80; RESP 16; TEMP 36.2; O2SAT 95
--- NOTE | 2024-07-14 15:17 | W.PM.PROGNOT ---
Date of Service Date of service: 07/14/24 Time of Service: 15:17 Assessment and Plan Assessment and plan (1) Contusion of cervical spinal region: Status: Acute Assessment and plan: Extensive imaging and neurlogy/neurosurgery evaluation reviewed. This will be managed conservatively unless new symtoms develop. Continue working with PT to regain mobility. (2) Intractable pain: Status: Acute Assessment and plan: At [facility] getting IV hydromorphone 2mg q 3 hr plus his home oxycodone, as well as acetaminophen and cyclobenzaprine He has and NSAID allergy Will try to taper and transition to oral therapy. 07/14/24 Decreased interval for dilaudid. Placed consult to palliative care for pain management recommendations (3) Morbid obesity: Assessment and plan: He is active at baseline, weight trend is down. We discussed option. He is intersted in GLP-1, he and plan low carb high protein diet, which is reasonable. Follow up with PCP. (4) Chronic, continuous use of opioids: Status: Acute Assessment and plan: Patient is tolerant, so requires high doses for acute pain management. Plan to discharge when ready on home oxycodone. (5) DVT prophylaxis: Status: Acute Assessment and plan: Has had SCDs, but given BMI and 3 days of reduced mobility, treat with enoxaparin. Subjective Subjective Interval history since last seen: Pt still with significant pain in his lower back and with acute on chronic back pain Exam Narrative Exam Narrative: GEN: Alert and oriented x 4, pleasant and cooperative, gives linear history. No acute distress at rest, uncomfortable with movement. Obest HEENT: Head atraumatic. Conjunctiva clear, no icterus. PEERL, EOMI. no rhinorrhea. MMM, OP benign. Neck is supple with no masses or lymphadenopathy, trachea midline LUNGS: CTAB with normal effort CV: RRR with no murmurs, gallops, or rubs. ABD: active bowel sounds, soft, nontender and nondistended. No masses. EXT: no cyanosis, clubbing, or edema. Scar left medial foot/great toe, healed. MSK: No joint redness or swelling NEURO: CN 2-12 grossly intact. Normal movement of 4 extremities. sensation intact to light touch including in saddle. Normal speech and coordination. No tremor SKIN: No rashes or open wounds. PSYCH: somewhat labile mood and affect, normal thought process Objective Last Vital Signs Temp 36.2 C L 07/14/24 09:05 Pulse 80 07/14/24 09:05 Resp 16 07/14/24 09:05 BP 126/81 07/14/24 09:05 Pulse Ox 95 07/14/24 09:05 Time Spent with Patient Time Spent with Patient: 25-34 minutes Time was spent: preparing to see the patient(eg.review tests), obtaining and/or reviewing separately otained hiistory, ordering medications,tests, procedures, referring, communicating with other health medical care manager, indepentently interpreting results, counseling the patient and care coordination
[2024-07-14] MEDS: Normal Saline Flush 10 ML SYR (16:31)
--- NOTE | 2024-07-14 16:31 | PT.INTREAT ---
PT Notes Visit Reasons: Intractable Pain, Spinal Contusion Inpatient Physical Therapy Treatment Note [facility] Date: 07/14/2024 PRECAUTIONS: Fall risk SUBJECTIVE: At start of session, patient reports he is concerned he may not get the control back of his legs. Patient reports he was up most of the night and only slept for 1.5 hours. OBJECTIVE: Patient presented side-lying in bed agreeable to participate denied reports of pain slight numbness in lower extremities patient demonstrated dorsiflexion plantarflexion in seated position. Patient reports he is concerned that this is? PAIN: initially denied then developed pressure base of neck pain meds administered VITALS: ?[place] [facility] [place] Therapeutic Activities (48665d[]): Direct one-on-one instruction in dynamic activities to improve functional performance. ? BED MOBILITY/TRANSFERS? Rolling L/R: independent Supine-sit: independent ? Sit-supine: mod A? Sit-stand: CGA x 3 trials then SBA x 2 ? Stand-sit: CGA x 3 trials then SBA x 2 ? Bed-Chair: CGA with FWW ,SBA x 2 trial with and without AD ? Chair-bed: Min A x 1 trial with FWW then SBA with and without AD Facilitated ambulation with FWW CGA progressed to min A with ataxic pattern impaired knee flexion, wide VASILIY, poor foot clearance, x 30 feet with increased tremulous BLE w/c follow for safety. Pt denied pain cues provide for increased WB through UE to advance LEs - 2nd attempt--- facilitated ambulation with FWW SBA demonstrating reciprocal pattern with knee flexion adequate foot clearance 30 feet with w/c follow no pain no tremulousLE, -3rd attempt- facilitated ambulation 30 feet without AD SBA reciprocal pattern, no pain no tremor, no gait deviations noted/ ? Therapeutic Exercises (08328c[]): Direct one-on-one instruction in therapeutic exercises to develop strength, endurance, range of motion and flexibility. ? Exercises BLE ? seated ankle pumps x 10 reps, LAQ x 10 reps with ataxic movement, marching with ataxic pattern supine heel slides x 5 reps x 2 sets? stand heel raises x 10 reps stand marching with 1UE support 2 sets 5 reps BLE Provided skilled instruction in proper exercise performance ASSESSMENT:? Pt tolerated session well with inconsistent performance. Pt initially with impaired motor control tremulous BLE during ambulation and difficulty coordinating stand to sit. Pt during middle of session noted sensation of hot water running down his leg He required mod A to get legs into bed then noted pressure at base of neck. in to assess and RN gave dilaudid as ordered. Pt then rolled to right to sit at EOB Independently as he sat at EOB he rotated to left felt a sharp pain in his back which pt reported was a loud snapping in his ears. After this occured pt stated the numbness sensation in his legs was gone. Pt then able to ambulate with reciprocal pattern with and without AD with SBA. APt no longer with ataxic pattern. Nurse notified. PLAN: Cont per POC TREATMENT CODE/Time:05939,[id number] DISCHARGE RECOMMENDATION: home with outpatient PT
[2024-07-14 19:48] VITALS: BP 118/68; PULSE 77; RESP 16; TEMP 36.1; O2SAT 94
[2024-07-14] MEDS: Normal Saline-STERILE FIELD 0.9% 10 ML SYR IVP (20:36)
[2024-07-15] MEDS: HYDROmorphone 2 MG/ML SYR IVP ×4 (00:34→12:47)
[2024-07-15 08:52] VITALS: BP 125/71; PULSE 85; RESP 18; TEMP 36.6; O2SAT 95
[2024-07-15] MEDS: Acetaminophen 500 MG TAB 1000 MG PO (09:08)
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
--- NOTE | 2024-07-15 11:55 | PDOC.HHF2F_ITS ---
Home Health Referral Home Health Orders Clinical synopsis of why skilled professionals are needed: intractable pain Medical diagnosis necessitation home health referral: spinal contusion Physical Therapist: Check all that apply Increase strength & endurance for safe mobility at home: Ordered To design/establish home maintenance program: Ordered Fall reduction therapy program for patient with history of frequent falls: Ordered Home safety evaluation and teaching/gait training including stair management (if applicable): Ordered Occupational Therapist: Upper extremity strengthening, range and motion: Ordered Encounter Date and Reason: I certify that a FTF encounter for this patient was performed on July 15, 2024 and that such encounter was related to the primary reason the patient requires home health services. The encounter was conducted in the following manner: * By me as the certifying physician, RECREATIONAL ASSISTANT, PA or * By an inpatient physician, RECREATIONAL ASSISTANT or PA during an inpatient stay who communicated findings to me, Certification And Authentication I certify that I composed the above information based on my clinical judgment relating to this patient's medical condition and, if applicable, clinical f indings communicated to me by the NPP or inpatient physician who performed the FTF encounter. Name of Provider that will be monitoring home health services: Percy Blanchard
--- NOTE | 2024-07-15 12:08 | PT.INTREAT ---
PT Notes Visit Reasons: Intractable Pain, Spinal Contusion Inpatient Physical Therapy Treatment Note [facility] Date: 07/15/2024 PRECAUTIONS: Fall risk SUBJECTIVE: Pt reports he feels really well and is going home today OBJECTIVE:seated at EOB on his phone ? PAIN: 2-3/ back after meds VITALS: ?monitored by [facility] Therapeutic Activities ([id number][]): Direct one-on-one instruction in dynamic activities to improve functional performance. ? BED MOBILITY/TRANSFERS? Rolling L/R: independent Supine-sit: independent ? Sit-supine: independent ? Sit-stand: Independent various surfaces including bed toilet chair ? Stand-sit: Independent various surfaces including bed toilet and chair? Bedto/from Chair: Independent without device ? - facilitated ambulation 150 feet, 30 feet x 3 without AD SBA reciprocal pattern, no pain no tremor, no gait deviations noted/ ? ASSESSMENT:? Pt tolerated session well patient significant improvement from prior session. Able to ambulate without assistive device independently within room supervised in hallway for longer distances demonstrating reciprocal pattern with wide base of support appropriate foot clearance and knee flexion through swing phase. Patient appears approaching baseline level of function as he is now able to ambulate without device PLAN: Cont per POC TREATMENT CODE/Time:03145/ [id number] DISCHARGE RECOMMENDATION: home with outpatient PT
--- NOTE | 2024-07-15 12:40 | CMDISCH_ITS ---
Date of service: 07/15/24 Time of Service: 12:52 LACE Index Scoring Tool Questions: Length of Stay (in days): 3 Was the patient admitted via the E.D.?: Yes E.D. Visits: 3 Answers: Total Score: 9 Risk of Readmission: Low Risk Care Management Discharge Plan Reason for Hospitalization: Intractable pain, spinal contusion Discharge Plan: Allan will discharge home via private vehicle with father in law, today. Patient will follow up with his PCP and discharge plan of care as directed. Out patient PT is recommended. Patient/Family Education Needs: Review discharge instructions, activity, limitations and plan of care. Discuss Ask Me Three. Services Needed at Discharge: Outpatient Therapy (PT) SDOH Health Related Social Needs: Health related social needs housing instability, house d, with risk of homelessness (Z59.811)
== END 2024-07-15 13:03 | disposition home health service (06) | DRG 605 ==
PROVIDERS: Admitting Provider Family Medicine; PCP Family Medicine; Responsible Provider Hospitalist; Visit Provider Family Medicine
DX: S10.83XA Contusion of other specified part of neck, initial encounter (principal); Z68.43 Body mass index [BMI] 50.0-59.9, adult; G89.11 Acute pain due to trauma; E66.01 Morbid (severe) obesity due to excess calories; Z87.820 Personal history of traumatic brain injury; W17.89XA Other fall from one level to another, initial encounter; M54.2 Cervicalgia; M25.511 Pain in right shoulder; R07.89 Other chest pain; R20.2 Paresthesia of skin; Z79.891 Long term (current) use of opiate analgesic; M47.816 Spondylosis without myelopathy or radiculopathy, lumbar region; F17.210 Nicotine dependence, cigarettes, uncomplicated; R73.03 Prediabetes; F41.9 Anxiety disorder, unspecified; J45.20 Mild intermittent asthma, uncomplicated; F89 Unspecified disorder of psychological development; G35 Multiple sclerosis
CPT/HCPCS: 00123; 36415; 80048; 85027; 97110; 97161; 97530; J1650; 99222; 99231; 99238; J1171

== ENCOUNTER 2024-08-19 10:20 | Emergency (ER) | payer MEDICAID, SELFPAY ==
[2024-08-19 10:28] VITALS: BP 180/104; PULSE 105; RESP 20; TEMP 36.7; O2SAT 96
--- NOTE | 2024-08-19 10:30 | DI.RAD_ITS ---
Exam(s) XR HAND RT COMPLETE EXAM: XR HAND RT COMPLETE CLINICAL HISTORY: pain thenar eminance, cut on finger. TECHNIQUE: 2D digital imaging was performed. COMPARISON: CR,XR XR HAND RT COMPLETE from 02/14/2019 FINDINGS: 3 views There is a laceration in the region of the thenar eminence. There is no radiopaque foreign body. No acute fractures. No erosions. No radiographic evidence of osteomyelitis. Incidentally noted is a deformity at the neck of the 5th metacarpal which is probably healed fracture site. IMPRESSION: Soft tissue findings as above but no acute osseous findings in the right hand DATA REPOSITORY: RADIATION DOSE DELIVERED:
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
[2024-08-19] MEDS: Acetaminophen 500 MG TAB 1000 MG PO (10:47)
[2024-08-19] MEDS: oxyCODONE 10 MG TAB PO (10:47)
--- NOTE | 2024-08-19 11:13 | DI.[facility]AD_ITS ---
PROCEDURE INFORMATION: Exam: XR Right Hand Exam date and time: 08/19/2024 10:54 AM Age: 39 years old Clinical indication: Pain; Hand; Right TECHNIQUE: Imaging protocol: Radiologic exam of the right hand. Views: 3 or more views. COMPARISON: CR XR HAND RT COMPLETE 02/14/2019 3:09 PM FINDINGS: Bones/joints: Normal. Soft tissues: Normal. IMPRESSION: No acute fracture or dislocation. Dictated and Authenticated by: Jorge Alberto Strange MD. Orderin [address] MD
== END 2024-08-19 11:34 | disposition home or self-care (01) ==
PROVIDERS: Emergency Provider Emergency Medicine; PCP Family Medicine
DX: S63.601A Unspecified sprain of right thumb, initial encounter (principal); X58.XXXA Exposure to other specified factors, initial encounter; Z59.811 Housing instability, housed, with risk of homelessness
CPT/HCPCS: 99283 ×2; 29125; 73130

== ENCOUNTER 2024-09-18 16:50 | Emergency (ER) | payer SELFPAY ==
[2024-09-18 16:53] VITALS: BP 127/89; PULSE 77; RESP 18; TEMP 36.3; O2SAT 94
--- NOTE | 2024-09-18 18:07 | DI.CT_ITS ---
Exam(s) CT HEAD CERVICAL SPINE WO EXAM: CT HEAD CERVICAL SPINE WO CLINICAL HISTORY: box fell on head, bilat arm weakness and pain. TECHNIQUE: Imaging Protocol: Axial computed tomography images with coronal and sagittal reformatted images were created and reviewed COMPARISON: CT CT FACIAL W from 02/27/[address] HEAD CERVICAL SPINE WO from 07/07/2024 FINDINGS: Exam is limited by patient body habitus. CT Head: Ventricles and Extra axial spaces: Normal in size and morphology for the patient's age. Hemorrhage: None. Cerebral parenchyma: Normal. Midline shift: None. Brainstem/Cerebellum: Normal. Calvarium: Normal. Visualized Paranasal sinuses/Mastoids: Clear. Soft Tissues: Unremarkable. CT Cervical Spine: Bones: No acute fracture or subluxation. There is straightening of the normal cervical lordosis. This may be due to muscle spasm or patient positioning. Soft Tissues: Unremarkable. Lung Apices: Clear. IMPRESSION: 1. Exam is limited by patient body habitus, particularly in the cervical spine. If there is continued clinical concern for cervical spine injury, a repeat examination should be considered. 2. No acute intracranial process. 3. No acute fracture or subluxation in the cervical spine. 4. The preliminary [facility] report was reviewed. RADIATION DOSE DELIVERED: 1,611mGy.cm Total DLP DATA REPOSITORY: All CT scans at this facility are submitted to the National Radiology Data Registry (NRDR) Dose Index Registry (DIR) with the [employer] (A[employer]). RADIATION OPTIMIZATION: All CT scans at this facility use at least one of these dose optimization techniques: automated exposure control; mA and/or kV adjustment per patient size (includes targeted exams where dose is matched to clinical indication); or iterative reconstruction.
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
[2024-09-18] MEDS: ACETAMINOPHEN 1,000 MG/100 ML BAG 400 MG IVPB (19:04)
[2024-09-18] MEDS: HYDROmorphone 2 MG/ML SYR 1 MG IVP (19:06)
[2024-09-18 19:11] LABS: Abs Immature Grans 0.02 10^3/uL (0.0-0.06); HCT 44.2 % (40.0-50.0); HGB 14.4 g/dL (13.5-17.5); Immature Grans % 0.2 %; MCH 27.5 pg (27.0-33.0); MCHC 32.6 % (32.0-36.0); MCV 84 fL (80-95); MPV 8.8 fL (8.0-11.0); Platelet Count 260 10^3/uL (130-400); RBC 5.24 10^6/uL (4.36-5.78); RDW 13.0 % (11.8-14.1); RDW-SD 40.1 fL; WBC 10.09 10^3/uL (4.4-10.8)
--- NOTE | 2024-09-18 19:35 | DI.[facility]AD_ITS ---
PROCEDURE INFORMATION: Exam: CT Head Without Contrast Exam date and time: 09/18/2024 7:02 PM Age: 39 years old Clinical indication: Injury or trauma; Other: Box fell on head, bilat arm weakness and pain; Blunt trauma (contusions or hematomas); Consciousness not specified TECHNIQUE: Imaging protocol: Computed tomography of the head without contrast. COMPARISON: CT HEAD CERVICAL SPINE WO 07/07/2024 6:38 PM FINDINGS: Brain: No acute intracranial hemorrhage or mass lesions. No midline shift. Normal godwin-white differentiation. Cerebral ventricles: No ventriculomegaly. Paranasal sinuses: Visualized sinuses are unremarkable. No fluid levels. Mastoid air cells: Visualized mastoid air cells are well aerated. Bones: Unremarkable. No acute fracture. Soft tissues: Unremarkable. IMPRESSION: No acute intracranial findings. PROCEDURE INFORMATION: Exam: CT Cervical Spine Without Contrast Exam date and time: 09/18/2024 7:02 PM Age: 39 years old Clinical indication: Injury or trauma; Other: Box fell on head, bilat arm weakness and pain; Blunt trauma (contusions or hematomas); Consciousness not specified TECHNIQUE: Imaging protocol: Computed tomography of the cervical spine without contrast. COMPARISON: CT HEAD CERVICAL SPINE WO 07/07/2024 6:38 PM FINDINGS: Bones: No acute fracture. Normal alignment. No significant disc bulge or herniation. No severe spinal canal stenosis. No significant neural foraminal narrowing. Lungs: Lung apices are normal. Soft tissues: Unremarkable. IMPRESSION: No acute cervical spine fracture. Dictated and Authenticated by: Karol Sanders MD. Orderin Pearl Ba MD
[2024-09-18 19:45] LABS: AST 18 U/L (15-37); Albumin 3.7 g/dL (3.4-5.0); Anion Gap 5.5 mmol/L (3-11); BUN 13 mg/dL (7-18); Bilirubin, Total 0.5 mg/dL (0.2-1.0); CO2 28.5 mmol/L (21.0-32.0); Calcium 9.0 mg/dL (8.5-10.1); Chloride 102 mmol/L (98-107); Estimated GFR 88.12 (mL/min/1.73m2); Glucose 103 mg/dL (74-106); Potassium 3.7 mmol/L (3.5-5.1); Sodium 136 mmol/L (136-145); TSH (W/Ref FT4) 2.06 uIU/mL (0.36-3.74)
[2024-09-18 19:56] LABS: ALT 31 U/L (16-63); Alkaline Phosphatase 106 U/L (46-116); Total Protein 7.7 g/dL (6.4-8.2)
[2024-09-18 20:47] VITALS: BP 148/110; PULSE 84; O2SAT 96
[2024-09-18] MEDS: Lidocaine 5% Patch 1 PATCH TP (20:56)
[2024-09-18] MEDS: Dexamethasone 10 MG/ML VIAL IVP (20:57)
[2024-09-18] MEDS: Cyclobenzaprine 10 MG TAB PO (21:05)
[2024-09-18 21:17] VITALS: BP 113/67; PULSE 87; RESP 20; O2SAT 98
== END 2024-09-18 21:19 | disposition home or self-care (01) ==
PROVIDERS: Emergency Provider Emergency Medicine; PCP Family Medicine
DX: M54.12 Radiculopathy, cervical region (principal); Z87.820 Personal history of traumatic brain injury; Z87.891 Personal history of nicotine dependence
CPT/HCPCS: 80053; 96365; 96366; 96375; 99284; 70450; 72125; 84443; 85025; J0131; J1100; J1171

== ENCOUNTER 2024-09-28 18:41 | Emergency (ER) | payer SELFPAY ==
[2024-09-28 18:54] VITALS: BP 164/82; PULSE 98; RESP 16; TEMP 36.8; O2SAT 95
--- NOTE | 2024-09-28 20:15 | DI.CT_ITS ---
Exam(s) CT CAROTID NECK CTA EXAM: CT CAROTID NECK CTA CLINICAL HISTORY: bilateral hand discoloration and paresthesias. TECHNIQUE: Imaging Protocol: Axial CT angiography was performed with multi- slice acquisition and multi-planar and MIP reconstructions. CONTRAST MATERIAL: Intravenous: Omnipaque 350 Contrast volume:70 ml COMPARISON: CT CT CHEST/ABD/PEL W from 07/07/[address] HEAD CERVICAL SPINE WO from 07/07/[address] HEAD CERVICAL SPINE WO from 09/18/2024 FINDINGS: The visualized portions of the brain visualized intracranial vasculature appear normal. CTA Neck W: Bilateral subclavian arteries show normal diameter. Common Carotid: Right: No dissection, occlusion or significant stenosis. Left: No dissection, occlusion or significant stenosis. External Carotid: Right: No dissection, occlusion or significant stenosis. Left: No dissection, occlusion or significant stenosis. Internal Carotid: Right: No dissection, occlusion or significant stenosis. Left: No dissection, occlusion or significant stenosis. Vertebral Artery: Right: No dissection, occlusion or significant stenosis. Left: No dissection, occlusion or significant stenosis. Lung Apices: No acute findings. Bones: No acute abnormality. Soft Tissues: Normal. IMPRESSION: No evidence of occlusion, significant stenosis or dissection. No visible atherosclerotic changes. The preliminary [facility] report was reviewed. RADIATION DOSE DELIVERED: Total DLP DATA REPOSITORY: All CT scans at this facility are submitted to the National Radiology Data Registry (NRDR) Dose Index Registry (DIR) with the [employer] (ACR). RADIATION OPTIMIZATION: All CT scans at this facility use at least one of these dose optimization techniques: automated exposure control; mA and/or kV adjustment per patient size (includes targeted exams where dose is matched to clinical indication); or iterative reconstruction.
[2024-09-28] MEDS: oxyCODONE 10 MG TAB (20:36)
[2024-09-28] MEDS: oxyCODONE 5 MG TAB (20:36)
[2024-09-28] MEDS: Normal Saline - Diluent 50 ML VIAL IJ ×2 (20:54→20:55)
[2024-09-28 21:14] LABS: ALT 33 U/L (16-63); AST 19 U/L (15-37); Albumin 3.7 g/dL (3.4-5.0); Alkaline Phosphatase 109 U/L (46-116); Anion Gap 10.7 mmol/L (3-11); BUN 13 mg/dL (7-18); Bilirubin, Total 0.7 mg/dL (0.2-1.0); CO2 27.3 mmol/L (21.0-32.0); Calcium 9.2 mg/dL (8.5-10.1); Chloride 100 mmol/L (98-107); Creatine Kinase 55 U/L (39-308); Estimated GFR 98.80 (mL/min/1.73m2); Glucose 104 mg/dL (74-106); Potassium 3.9 mmol/L (3.5-5.1); Sodium 138 mmol/L (136-145); Total Protein 8.0 g/dL (6.4-8.2)
[2024-09-28] MEDS: Omnipaque 350 MG/ML 100 ML BTL IJ ×2 (21:17→21:18)
--- NOTE | 2024-09-28 21:21 | DI.CT_ITS ---
Exam(s) CT THORAX CTA EXAM: CT THORAX CTA CLINICAL HISTORY: bilateral hand discoloration and paresthesias. TECHNIQUE: Imaging Protocol: Axial CT angiography was performed with multi- slice acquisition and multi-planar reconstructions as well as axial, coronal and sagittal MIP reconstructions. Computer aided detection (CAD) was utilized. CONTRAST MATERIAL: Intravenous: Omnipaque 350 Contrast volume:100 ml COMPARISON: CT CT CHEST/ABD/PEL W from 07/07/2024 FINDINGS: Pulmonary Arteries: No evidence of filling defect to suggest pulmonary emboli. Mediastinum and Radha: No dominant adenopathy or fluid collection. Pulmonary parenchyma: No consolidation or dominant measurable mass. Pleura: No effusion or pneumothorax. Heart: The heart is not dilated. No coronary artery calcifications are seen. Aorta: Thoracic aorta non-dilated. No dissection. No atherosclerotic changes. The subclavian artery show normal diameter Upper abdomen: No acute findings. Bones: Unremarkable for age. Tubes, Catheters, and Lines: None Soft tissues: Unremarkable. IMPRESSION: No evidence of pulmonary embolism or aortic dissection. No acute abnormality in the chest.. The preliminary [facility] report was reviewed. RADIATION DOSE DELIVERED: Total DLP DATA REPOSITORY: All CT scans at this facility are submitted to the National Radiology Data Registry (NRDR) Dose Index Registry (DIR) with the [employer] (ACR). RADIATION OPTIMIZATION: All CT scans at this facility use at least one of these dose optimization techniques: automated exposure control; mA and/or kV adjustment per patient size (includes targeted exams where dose is matched to clinical indication); or iterative reconstruction.
--- NOTE | 2024-09-28 22:18 | DI.[facility]_ITS ---
PROCEDURE INFORMATION: Exam: CTA Neck With Contrast Exam date and time: 09/28/2024 8:51 PM Age: 39 years old Clinical indication: Other: Bilateral hand discoloration and paresthesias TECHNIQUE: Imaging protocol: Computed tomographic angiography of the neck with contrast. Exam focused on the cervical segments of the vasculature. 3D rendering (Not supervised by radiologist): MIP and/or 3D reconstructed images were created by the technologist. Radiation optimization: All CT scans at this facility use at least one of these dose optimization techniques: automated exposure control; mA and/or kV adjustment per patient size (includes targeted exams where dose is matched to clinical indication); or iterative reconstruction. Contrast material: [id number]; Contrast volume: 70 ml; Contrast route: INTRAVENOUS (IV); COMPARISON: CT BRAIN NECK CTA 12/23/2021 1:42 AM FINDINGS: Right common carotid artery: No stenosis. No dissection or occlusion. Right internal carotid artery: No stenosis of the extracranial segment. No dissection or occlusion. Right external carotid artery: No occlusion or stenosis of the origin. Left common carotid artery: No stenosis. No dissection or occlusion. Left internal carotid artery: No stenosis of the extracranial segment. No dissection or occlusion. Left external carotid artery: No occlusion or stenosis of the origin. Right vertebral artery: No stenosis. No dissection or occlusion. Left vertebral artery: No stenosis. No dissection or occlusion. Soft tissues: Normal. No significant soft tissue swelling. Bones/joints: No acute fracture. IMPRESSION: No stenosis or occlusion. REFERENCES: NASCET CRITERIA. The degree of stenosis in the cervical segment of the internal carotid artery is based on NASCET criteria. Normal is no stenosis. Mild is less than 50% stenosis. Moderate is 50-69% stenosis. Severe is 70% to 99% stenosis. Total occlusion is no detectable patent lumen. Dictated and Authenticated by: Donnie Wadsworth MD. Orderin Ion Walter MD
--- NOTE | 2024-09-28 22:57 | DI.[facility]_ITS ---
Addendum created by Shadi Conner MD on 09/28/2024 11:02:28 PM EDT: Findings were discussed with Saba Lemon at 09/28/2024 11:02 PM EDT. Initial report created on 09/28/2024 10:57:05 PM EDT: PROCEDURE INFORMATION: Exam: CTA Chest With Contrast Exam date and time: 09/28/2024 9:03 PM Age: 39 years old Clinical indication: Other: Bilateral hand discoloration and paresthesias TECHNIQUE: Imaging protocol: Computed tomographic angiography of the chest with contrast. Exam focused on the arteries. 3D rendering (Not supervised by radiologist): MIP and/or 3D reconstructed images were created by the technologist. Radiation optimization: All CT scans at this facility use at least one of these dose optimization techniques: automated exposure control; mA and/or kV adjustment per patient size (includes targeted exams where dose is matched to clinical indication); or iterative reconstruction. Contrast material: [id number]; Contrast volume: 100 ml; Contrast route: INTRAVENOUS (IV); COMPARISON: CT THORAX ABD/PEL CTA 05/18/2020 21:11 FINDINGS: Limitations: Streak and motion artifacts limit evaluation. Streak artifact from dense contrast in the left brachiocephalic vein limits evaluation of the brachiocephalic and left common carotid arteries. Pulmonary arteries: There is no evidence of pulmonary embolus in the large central pulmonary arteries. Evaluation of the segmental, subsegmental and peripheral branches is limited by motion artifact and technical factors. Aorta: No evidence of thoracic aortic aneurysm, dissection or penetrating ulcer. Lungs: There is no evidence of focal pulmonary consolidation. No lung masses are seen. Pleural spaces: Unremarkable. No pneumothorax. No pleural effusion. Heart: The heart is normal in size. There are no pericardial fluid collections. Lymph nodes: No enlarged mediastinal or hilar lymph nodes are seen. Bones/joints: No acute fracture is seen. Soft tissues: Unremarkable. Other findings: No acute findings in the included upper abdomen. Probable dense cyst contrast in the left renal collecting system. This may obscure a small nonobstructive calculus. IMPRESSION: 1. No evidence of thoracic aortic aneurysm, dissection or penetrating ulcer. Consider correlation with echocardiography, if clinically indicated. 2. No evidence of pulmonary embolus in the visualized large central pulmonary arteries. Dictated and Authenticated by: Shadi Conner MD. Orderin Ion Walter MD
[2024-09-28] MEDS: Orphenadrine 60 MG/2 ML VIAL IVP (23:14)
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
--- NOTE | 2024-10-01 14:34 | NUR.NOTE ---
Pt's chart accessed to view most recent discharge paperwork. pt called stating we made an error, sending the referral to the wrong place, stating it was suppose to go [place] [facility] [place], but we sent it to physical therapy. I confirmed with discharge packet that the referral was sent to the correct place. And instructed the patient that he should follow up with his PCP as stated in discharge packet and that he should make an appointment with physical therapy to see if that helps improve his symptoms. PT was very angry on the phone. Downgrading providers and staff at the hospital while using aggressive language. Nursing Note:
--- NOTE | 2024-10-08 14:20 | NUR.NOTE ---
Patient called stating that the referral was for hands not neck and shoulder. I resent the PT referral to [facility] with cervical radiculopathy, neuropathic pain, bilateral paresthesias. Patient aware. Nursing Note:
== END 2024-09-28 23:46 | disposition home or self-care (01) ==
PROVIDERS: Emergency Provider Physician Assistant; PCP Family Medicine
DX: M54.12 Radiculopathy, cervical region (principal); M79.641 Pain in right hand; M79.642 Pain in left hand; R20.2 Paresthesia of skin
CPT/HCPCS: 99284; 99285; 96374; 70498; 71275; 80053; 82550; J2360; J3490

== ENCOUNTER 2024-10-17 11:57 | Outpatient (CLI) | payer MEDICAID, SELFPAY ==
[2024-10-17 12:05] LABS: Abs Immature Grans 0.03 10^3/uL (0.0-0.06); HCT 43.5 % (40.0-50.0); HGB 14.5 g/dL (13.5-17.5); Immature Grans % 0.3 %; MCH 28.2 pg (27.0-33.0); MCHC 33.3 % (32.0-36.0); MCV 85 fL (80-95); MPV 8.9 fL (8.0-11.0); Platelet Count 236 10^3/uL (130-400); RBC 5.15 10^6/uL (4.36-5.78); RDW 12.6 % (11.8-14.1); RDW-SD 38.9 fL; WBC 8.68 10^3/uL (4.4-10.8)
[2024-10-17 12:14] LABS: ESR 24 mm/hr (0-15)
[2024-10-17 12:28] LABS: Hemoglobin A1C 5.7 % (<5.7)
[2024-10-17 13:08] LABS: ALT 35 U/L (16-63); AST 17 U/L (15-37); Albumin 3.6 g/dL (3.4-5.0); Alkaline Phosphatase 96 U/L (46-116); Anion Gap 8.1 mmol/L (3-11); BUN 8 mg/dL (7-18); Bilirubin, Total 0.7 mg/dL (0.2-1.0); CO2 27.9 mmol/L (21.0-32.0); Calcium 8.8 mg/dL (8.5-10.1); Calculated LDL 87 mg/dL (<100); Chloride 102 mmol/L (98-107); Cholesterol 152 mg/dL (<200); Estimated GFR 112.11 (mL/min/1.73m2); Glucose 109 mg/dL (74-106); HDL Cholesterol 50 mg/dL (>or=40); Potassium 3.8 mmol/L (3.5-5.1); Sodium 138 mmol/L (136-145); Total Protein 7.6 g/dL (6.4-8.2); Triglyceride 76 mg/dL (<150); Vitamin D 25 Total 20 ng/mL (30-100)
[2024-10-18 19:34] LABS: TSH, Sensitive 1.9 mIU/L (0.3-4.2)
== END 2024-10-17 11:58 | disposition home or self-care (01) ==
LOC: LBO 11:57
PROVIDERS: PCP Family Medicine; Visit Provider Family Medicine
DX: E78.5 Hyperlipidemia, unspecified (principal); E66.01 Morbid (severe) obesity due to excess calories; R73.03 Prediabetes; M19.90 Unspecified osteoarthritis, unspecified site
CPT/HCPCS: 36415; 80053; 80061; 82306; 85652; 86812; 83036; 84443; 85025; 86038; 86431

== ENCOUNTER 2024-10-22 10:46 | Emergency (ER) | payer MEDICAID, SELFPAY ==
[2024-10-22 10:49] VITALS: BP 186/114; PULSE 82; RESP 18; TEMP 36.6; O2SAT 89
--- NOTE | 2024-10-22 11:15 | DI.CT_ITS ---
Exam(s) CT LUMBAR SPINE WO EXAM: CT LUMBAR SPINE WO CLINICAL HISTORY: back pain, radiating into testicles. TECHNIQUE: Imaging Protocol: Axial computed tomography images with coronal and sagittal reformatted images were created and reviewed COMPARISON: CT CT THORACIC LUMBAR SPINE REC from 07/07/[address] THORAX CTA from 09/28/2024 FINDINGS: Bones: There are no fractures, listhesis, nor pars defects. There are no lytic osseous lesions evident. INDIVIDUAL LEVELS: T12-L1:No disc herniation nor canal stenosis. Facet joints unremarkable. No foraminal stenosis. L1-2: No disc herniation nor canal stenosis. Facet joints unremarkable. No foraminal stenosis. L2-3: No disc herniation nor canal stenosis. Facet joints unremarkable. No Foraminal stenosis L3-4: No disc herniation nor canal stenosis. Facet joints unremarkable. No foraminal stenosis. L4-5: No disc herniation nor canal stenosis. Facet joints unremarkable. No significant foraminal stenosis. L5-S1: There is space narrowing posteriorly and vacuum phenomenon seen within the central disc space at this level. Posteriorly there is central subligamentous annular bulging but no prominent central canal stenosis. Facet joints appear unremarkable bilaterally at this level. There are no L5 pars d efects. No listhesis. There is, however, bilateral foraminal stenosis, right more so than left The visualized sacroiliac joints and sacrum appear unremarkable. PARASPINAL SOFT TISSUES: Visualized paraspinal tissues appear unremarkable. IMPRESSION: 1. There is some disc space narrowing at L5-S1 level with central subligamentous annular bulging at this level. There is also an element of bilateral 5th foraminal stenosis at this level, slightly more so on the right side. No evidence of L5 pars defects. 2. Other levels appear unremarkable. Report called by myself to ER provider 10/22/2024 at 2:15 p.m. RADIATION DOSE DELIVERED: 2,347.36mGy.cm Total DLP DATA REPOSITORY: All CT scans at this facility are submitted to the National Radiology Data Registry (NRDR) Dose Index Registry (DIR) with the [employer] (ACR). RADIATION OPTIMIZATION: All CT scans at this facility use at least one of these dose optimization techniques: automated exposure control; mA and/or kV adjustment per patient size (includes targeted exams where dose is matched to clinical indication); or iterative reconstruction.
--- NOTE | 2024-10-22 11:15 | DI.US_ITS ---
Exam(s) US SCROTUM EXAM: US SCROTUM CLINICAL HISTORY: scrotal pain TECHNIQUE: Ultrasound of the testes performed using grayscale, color, and Doppler imaging. COMPARISON: No exams were available for comparison FINDINGS: RIGHT HEMISCROTUM: The right testicle exhibits normal size and echo architecture with no evidence of intratesticular mass. Vascular flow was demonstrated within the right testicle, including arterial waveforms. The epididymis appears unremarkable. There is a small epididymal head cyst measuring 3 x 2 x 4 mm. There is no ipsilateral hydrocele nor varicocele. LEFT HEMISCROTUM: The left testicle exhibits normal size and echo architecture with no evidence of intratesticular mass. Vascular flow is demonstrated within the left testicle, including arterial waveforms. There is a small epididymal head cyst/spermatocele measuring 4 x 3 x 4 mm. There is small ipsilateral hydrocele measuring 2.8 x 1.4 x 1.7 cm. IMPRESSION: 1. No evidence of testicular mass nor testicular torsion. 2. Small left-sided hydrocele as described above. No varicoceles. 3. Small bilateral epididymal head spermatoceles with measurements as above. DATA REPOSITORY:
[2024-10-22] MEDS: Dexamethasone 10 MG/ML VIAL IVP (12:02)
[2024-10-22] MEDS: diazePAM 10 MG/2 ML SYR 5 MG IVP (12:02)
[2024-10-22] MEDS: MORPHine IR 15 MG TAB PO ×2 (12:17→14:35)
[2024-10-22 12:18] VITALS: BP 165/108; PULSE 82; RESP 18; O2SAT 99
[2024-10-22] MEDS: HYDROmorphone 2 MG/ML SYR 1 MG IVP (13:14)
[2024-10-22 13:39] LABS: Glucose Negative (Negative)
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
== END 2024-10-22 14:49 | disposition home or self-care (01) ==
PROVIDERS: Emergency Provider Physician Assistant; PCP Family Medicine
DX: M48.061 Spinal stenosis, lumbar region without neurogenic claudication (principal); Z59.811 Housing instability, housed, with risk of homelessness; N43.41 Spermatocele of epididymis, single; N43.3 Hydrocele, unspecified; N50.811 Right testicular pain; N50.812 Left testicular pain
CPT/HCPCS: 99284 ×2; 96374; 96375; 72131; 76870; 81003; J1100; J1171; J3360

== ENCOUNTER 2024-10-23 22:16 | Emergency (ER) | payer MEDICAID, SELFPAY ==
[2024-10-23 22:20] VITALS: BP 183/131; PULSE 89; RESP 24; TEMP 36.3; O2SAT 95
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
== END 2024-10-23 23:25 | disposition home or self-care (01) ==
LOC: ER 22:45
PROVIDERS: Emergency Provider Student in an Organized Health Care Education/Training Program; PCP Family Medicine
DX: M54.9 Dorsalgia, unspecified (principal); G89.29 Other chronic pain; Z79.891 Long term (current) use of opiate analgesic; N43.3 Hydrocele, unspecified; Z59.811 Housing instability, housed, with risk of homelessness
CPT/HCPCS: 99283; 99282

== ENCOUNTER 2025-01-04 14:38 | Emergency (ER) | payer SELFPAY ==
[2025-01-04] VITALS (30 sets, daily range): BP systolic 141–170; BP diastolic 72–96; PULSE 82–126; RESP 10–27; TEMP 36.6; O2SAT 91–99
--- NOTE | 2025-01-04 14:30 | RT.EKG_ITS ---
APPROVED REPORT Exam: Resting ECG Reason for Exam: dyspnea Patient Location: E HR:111 bpm ECG Measurements Heart Rate 111 AXIS OK 135 P -55 QRSd 93 QRS 37 QT 311 T -11 QTc 423 Conclusion Sinus or ectopic atrial tachycardia...P axis (-45,135), rate> [address] elevation, anterior leads...ST >0.15mV in V1-V4 No STEMI
--- NOTE | 2025-01-04 14:45 | DI.RAD_ITS ---
Exam(s) XR PORTABLE CHEST AP EXAM: XR PORTABLE CHEST AP CLINICAL HISTORY: SOB TECHNIQUE: 2D digital imaging was performed. COMPARISON: CT CT [facility]AX CTA from 09/28/2024 FINDINGS: Exam is limited by under penetration and patient body habitus. Lungs are suboptimally inflated. LUNGS: question of increased densities in the right lung versus artifact. The left lung is clear. No pleural abnormality seen. HEART: Normal size. AORTA: Normal diameter. BONES: Unremarkable for age. Soft tissues: Unremarkable. IMPRESSION: Question of increased densities in the right lung versus artifact. DATA REPOSITORY: RADIATION DOSE DELIVERED:
--- NOTE | 2025-01-04 14:47 | DI.CT_ITS ---
Exam(s) CT CHEST PE CTA EXAM: CT CHEST PE CTA CLINICAL HISTORY: shortenss of breath, tachycardia. TECHNIQUE: Imaging Protocol: CT angiography of the chest was performed using pulmonary embolus protocol. Multi planar reconstructions were performed. CONTRAST MATERIAL: Intravenous: Omnipaque 350 Contrast volume: 100 cc COMPARISON: CT CT THORAX CTA from 09/28/2024 CR XR PORTABLE CHEST AP from 01/04/2025 FINDINGS: CHEST: PULMONARY ARTERIES: Less than optimal bolus injection. There are no central pulmonary emboli. Difficult to evaluate the distal pulmonary arterial tree. LUNGS: z there is diffuse infiltrate throughout the right lung involving all segments of all lobes. No cavitation. No associated pleural effusion. There is a tiny benign granuloma in the right lower lobe. The opposite-left lung is clear. No pleural effusion. No significant focal findings in trachea and mainstem bronchi. There is no bronchiectasis. MEDIASTINUM: There is no hilar nor mediastinal adenopathy. Visualized thyroid unremarkable. CARDIAC: Heart size is upper normal. There is no pericardial effusion.Caliber of the thoracic aorta is within normal limits. No evidence of aortic dissection. There is no significant shift of the interventricular septum. PARTIALLY VISUALIZED UPPERMOST ABDOMEN: No obvious findings OSSEOUS: No significant osseous lesions.No fractures.. IMPRESSION: 1. There is extensive infiltrate throughout the entire right lung involving all segments of all lobes. Most probably infectious. The left lung is clear. There are no pleural effusions and there is no obvious intrathoracic adenopathy. 2. Suboptimal bolus injection but no obvious acute pulmonary emboli nor evidence of pulmonary infarction Report called by myself to ER physician 01/04/2025 at 4:50 p.m. RADIATION DOSE DELIVERED: 513.15mGy.cm Total DLP DATA REPOSITORY: All CT scans at this facility are submitted to the National Radiology Data Registry (NRDR) Dose Index Registry (DIR) with the [employer] (A[employer]). RADIATION OPTIMIZATION: All CT scans at this facility use at least one of these dose optimization techniques: automated exposure control; mA and/or kV adjustment per patient size (includes targeted exams where dose is matched to clinical indication); or iterative reconstruction.
[2025-01-04 15:13] LABS: BE (Venous) 4 mmol/L (-2-3); HCO3 (Venous) 29 mmol/L (23-28); O2 Sat (Venous) 94 %; TCO2 (Venous) 26 mmol/L (24-29); pCO2 (Venous) 42 mmHg (41-51); pO2 (Venous) 68 mmHg
[2025-01-04 15:17] LABS: Abs Immature Grans 0.16 10^3/uL (0.0-0.06); HCT 34.9 % (40.0-50.0); HGB 11.6 g/dL (13.5-17.5); Immature Grans % 1.1 %; MCH 28.6 pg (27.0-33.0); MCHC 33.2 % (32.0-36.0); MCV 86 fL (80-95); MPV 8.5 fL (8.0-11.0); Platelet Count 176 10^3/uL (130-400); RBC 4.06 10^6/uL (4.36-5.78); RDW 13.9 % (11.8-14.1); RDW-SD 43.8 fL; WBC 14.80 10^3/uL (4.4-10.8)
[2025-01-04 15:37] LABS: Magnesium 1.8 mg/dL (1.6-2.6)
[2025-01-04 15:38] LABS: ALT 50 U/L (10-49); AST 15 U/L (<34); Albumin 4.0 g/dL (3.4-5.0); Alkaline Phosphatase 82 U/L (46-116); Anion Gap 11.2 mmol/L (3-11); BUN 14 mg/dL (9-23); Bilirubin, Total 1.10 mg/dL (0.2-1.2); CO2 27.9 mmol/L (20.0-31.0); Calcium 9.1 mg/dL (8.3-10.6); Chloride 98 mmol/L (98-107); Glucose 267 mg/dL (74-106); Potassium 4.1 mmol/L (3.5-5.1); Sodium 137 mmol/L (136-145); Total Protein 6.3 g/dL (5.7-8.2); Troponin I 25 ng/L (<54)
[2025-01-04 15:43] LABS: INR 1.0 (0.9-1.1); PTT Activated 19.8 sec (20.6-30.2); Prothrombin Time 10.2 sec (9.1-11.1)
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
[2025-01-04] MEDS: Lactated Ringers 1,000 ML 2000 ML IV (16:06)
[2025-01-04] MEDS: Normal Saline Flush 10 ML SYR IVP (16:06)
[2025-01-04] MEDS: Normal Saline - Diluent 50 ML VIAL IJ (16:06)
[2025-01-04] MEDS: Omnipaque 350 MG/ML 500 ML BTL-Imaging package IJ (16:07)
[2025-01-04 16:54] LABS: Glucose 500 mg/dL (Negative)
[2025-01-04 16:55] LABS: Troponin I 23 ng/L (<54)
[2025-01-04 17:02] LABS: C & S Indicated? No; RBC 20-50 HPF (0-2)
[2025-01-04] MEDS: Tranexamic Acid 1,000 MG/10 ML VIAL 500 MG IH (18:20)
[2025-01-04] MEDS: levoFLOXacin 750 MG/150 ML BAG 100 MG IVPB (18:25)
[2025-01-04] MEDS: MORPHine 10 MG/ML VIAL (19:12)
== END 2025-01-04 19:12 | disposition short-term general hospital (02) ==
PROVIDERS: Emergency Provider General Practice; PCP Family Medicine
DX: R00.0 Tachycardia, unspecified; D72.829 Elevated white blood cell count, unspecified; M31.30 Wegener's granulomatosis without renal involvement; R04.89 Hemorrhage from other sites in respiratory passages; R06.82 Tachypnea, not elsewhere classified; Z59.811 Housing instability, housed, with risk of homelessness
CPT/HCPCS: 36415; 71275; 80053; 82805; 87040; 87637; 93005; 96365; 96372; 99291; 71045; 81003; 81015; 83605; 83735; 83880; 84484; 85025; 85610; 85730; 93010; J1956; J2270

== ENCOUNTER 2025-01-28 18:11 | Emergency (ER) | payer SELFPAY ==
[2025-01-28] VITALS (7 sets, daily range): BP systolic 160–161; BP diastolic 90–94; PULSE 100–114; RESP 14–17; TEMP 36.3; O2SAT 91–95
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
[2025-01-28] MEDS: EPINEPHrine 1 MG/ML AMP pres-free 0.3 MG IM (20:12)
--- NOTE | 2025-01-28 20:26 | DI.CT_ITS ---
Exam(s) CT CAROTID NECK CTA EXAM: CT CAROTID NECK CTA CLINICAL HISTORY: vasculitis, anterior throat swelling. TECHNIQUE: Imaging Protocol: Axial CT angiography was performed with multi- slice acquisition and multi-planar and/or 3D reconstructions. CONTRAST MATERIAL: Intravenous: Omnipaque 350 Contrast volume:70 mL COMPARISON: CT CT CAROTID NECK CTA from 09/28/2024 FINDINGS: CTA Neck W: Common Carotid: The common carotid arteries have a retro pharyngeal location. Right: No aneurysm, occlusion or significant stenosis. Left: No aneurysm, occlusion or significant stenosis. External Carotid: Right: No aneurysm, occlusion or significant stenosis. Left: No aneurysm, occlusion or significant stenosis. Internal Carotid: Right: No aneurysm, occlusion or significant stenosis. Left: No aneurysm, occlusion or significant stenosis. Vertebral Artery: Right: No aneurysm, occlusion or significant stenosis. Left: No aneurysm, occlusion or significant stenosis. Lung Apices: Normal. Bones: The cervical spine is within normal limits for the patient's age. There is normal alignment. No acute fracture or subluxation is seen. Mild degenerative changes are seen in the visualized upper thoracic spine. Soft Tissues: Normal. IMPRESSION: 1. Normal CTA examination of the neck. There is no evidence of stenosis or occlusion. 2. The preliminary [facility] report was reviewed. RADIATION DOSE DELIVERED: 729.89mGy.cm Total DLP 729.89mGy.cm Total DLP DATA REPOSITORY: All CT scans at this facility are submitted to the National Radiology Data Registry (NRDR) Dose Index Registry (DIR) with the [employer] [place] [employer] (ACR). RADIATION OPTIMIZATION: All CT scans at this facility use at least one of these dose optimization techniques: automated exposure control; mA and/or kV adjustment per patient size (includes targeted exams where dose is matched to clinical indication); or iterative reconstruction.
[2025-01-28] MEDS: Famotidine 20 MG/2 ML VIAL IVP (20:33)
[2025-01-28] MEDS: methylPREDNISolone SUCC 125 MG VIAL 60 MG IVP (20:33)
[2025-01-28 20:35] LABS: Abs Immature Grans 0.23 10^3/uL (0.0-0.06); HCT 39.5 % (40.0-50.0); HGB 12.9 g/dL (13.5-17.5); Immature Grans % 1.6 %; MCH 27.3 pg (27.0-33.0); MCHC 32.7 % (32.0-36.0); MCV 84 fL (80-95); MPV 8.3 fL (8.0-11.0); Platelet Count 198 10^3/uL (130-400); RBC 4.72 10^6/uL (4.36-5.78); RDW 13.5 % (11.8-14.1); RDW-SD 41.3 fL; WBC 14.68 10^3/uL (4.4-10.8)
[2025-01-28 20:37] LABS: ESR 5 mm/hr (0-15)
[2025-01-28] MEDS: HYDROmorphone 2 MG/ML SYR 3 MG IVP ×2 (20:48→22:32)
[2025-01-28 20:52] LABS: Magnesium 2.0 mg/dL (1.6-2.6)
[2025-01-28 20:53] LABS: ALT 64 U/L (10-49); AST 26 U/L (<34); Albumin 4.6 g/dL (3.2-5.0); Alkaline Phosphatase 69 U/L (46-116); Anion Gap 9.8 mmol/L (3-11); BUN 15 mg/dL (9-23); Bilirubin, Total 0.7 mg/dL (0.2-1.2); C-Reactive Protein < 0.50 mg/dL (<=0.50); CO2 26.9 mmol/L (20.0-31.0); Calcium 9.4 mg/dL (8.3-10.6); Chloride 99 mmol/L (98-107); Glucose 134 mg/dL (74-106); Potassium 4.1 mmol/L (3.5-5.1); Sodium 136 mmol/L (136-145); Total Protein 6.9 g/dL (5.7-8.2)
[2025-01-28] MEDS: Omnipaque 350 MG/ML 100 ML BTL IJ (21:07)
[2025-01-28] MEDS: Normal Saline - Diluent 50 ML VIAL IJ (21:08)
[2025-01-28] MEDS: Normal Saline Flush 10 ML SYR IVP (21:08)
[2025-01-28] MEDS: LORazepam 2 MG/ML VIAL 1 MG IVP (21:34)
--- NOTE | 2025-01-28 22:06 | DI.[facility]_ITS ---
PROCEDURE INFORMATION: Exam: CTA Neck With Contrast Exam date and time: 01/28/2025 9:19 PM Age: 39 years old Clinical indication: Other: Vasculitis, anterior throat swelling TECHNIQUE: Imaging protocol: Computed tomographic angiography of the neck with contrast. Exam focused on the cervical segments of the vasculature. 3D rendering (Not supervised by radiologist): MIP and/or 3D reconstructed images were created by the technologist. Contrast material: OMNI 350; Contrast volume: 70 ml; Contrast route: INTRAVENOUS (IV); COMPARISON: CT CAROTID NECK CTA 09/28/2024 8:51 PM FINDINGS: Right common carotid artery: No stenosis. No dissection or occlusion. Right internal carotid artery: No stenosis of the extracranial segment. No dissection or occlusion. Right external carotid artery: No occlusion or stenosis of the origin. Left common carotid artery: No stenosis. No dissection or occlusion. Left internal carotid artery: No stenosis of the extracranial segment. No dissection or occlusion. Left external carotid artery: No occlusion or stenosis of the origin. Right vertebral artery: No stenosis. No dissection or occlusion. Left vertebral artery: No stenosis. No dissection or occlusion. Soft tissues: Normal. No significant soft tissue swelling. Bones/joints: No acute fracture. Other findings: Retrosternal course of bilateral common carotid and internal carotid arteries. IMPRESSION: No stenosis or occlusion. REFERENCES: NASCET CRITERIA. The degree of stenosis in the cervical segment of the internal carotid artery is based on NASCET criteria. Normal is no stenosis. Mild is less than 50% stenosis. Moderate is 50-69% stenosis. Severe is 70% to 99% stenosis. Total occlusion is no detectable patent lumen. Dictated and Authenticated by: Donny Morley MD. Orderin [address] MD
[2025-01-28] MEDS: EPINEPHrine 0.3 MG KIT IM (22:32)
== END 2025-01-28 22:25 | disposition home or self-care (01) ==
PROVIDERS: Emergency Provider Emergency Medicine; PCP Family Medicine
DX: T88.7XXA Unspecified adverse effect of drug or medicament, initial encounter (principal); M54.2 Cervicalgia; K13.29 Other disturbances of oral epithelium, including tongue; Z59.811 Housing instability, housed, with risk of homelessness
CPT/HCPCS: 70498; 80053; 85652; 96372; 96374; 96375; 96376; 99285; 83735; 83880; 85025; 86140; 99284; J0165; J0166; J1171; J2060; J2919; J3490